=== PATIENT | male | born 1975 | race African-American/Black ===

== ENCOUNTER 2016-05-14 09:14 | Emergency (ER) | payer OTHER ==
[2016-05-14 09:36] VITALS: BP 125/78; PULSE 84; TEMP 98.1; BMI 28.3
--- NOTE | 2016-05-14 09:48 | PDOC ---
History of Present Illness - General History Source: Patient Exam Limitations: No Limitations <Tommy Edmondson - Last Filed: 05/14/16 10:43> - History of Present Illness Initial Comments: 05/14/16 10:23 Patient is a 40 year old male from [facility] with significant medical hx of MR and wheelchair bound who has been brought to the ED for G-Tube displacement. The patient is accompanied by caregiver who provided history. Today the patient pulled his G-Tube out at approximately 7am, he reportedly does this on occasion. The patient was brought to the ED because staff at the [facility] had difficulty placing it back. Caregiver reports no other complaints. <Patricia Anne - Last Filed: 05/14/16 11:17> - General Chief Complaint: G Tube Problem Stated Complaint: TUBE DISPLACEMENT Time Seen by Provider: 05/14/16 09:42 Past History - Psycho/Social/Smoking Cessation Hx Suicidal Ideation: No Smoking History: Never smoked <Tommy Edmondson - Last Filed: 05/14/16 10:43> <Patricia Anne - Last Filed: 05/14/16 11:17> - Past Medical History Allergies/Adverse Reactions: Allergies Allergy/AdvReac Type Severity Reaction Status Date / Time No Allergy Information Allergy Verified 05/14/16 09:31 Available Home Medications: Ambulatory Orders Aspirin [ASA -] 81 mg GT DAILY 05/14/16 Baclofen 1 tab GT QID 05/14/16 Carbamazepine 100 mg PO BID 05/14/16 Ferrous Sulfate [Children's Ferrous Sulfate] 15 mg GT DAILY 05/14/16 Glycopyrrolate 1 mg GT BID 05/14/16 Multivit-Minerals/Ferrous Fum [Multivitamin Liquid] 30 ml GT DAILY 05/14/16 Ranitidine HCl [Zantac] 150 mg GT HS 05/14/16 Sennosides [Senna] 1 tab GT HS 05/14/16 Tizanidine HCl 2 mg GT BID 05/14/16 Valproic Acid [Depakene] 1,000 mg GT HS 05/14/16 Review of Systems - Review of Systems Comments:: 05/14/16 10:23 Patient unable to participate in ROS secondary to MR. <Patricia Anne - Last Filed: 05/14/16 11:17> *Physical Exam - Vital Signs Last Vital Signs Temp Pulse Resp BP Pulse Ox 98.1 F 84 15 125/78 97 05/14/16 09:31 05/14/16 09:31 05/14/16 09:31 05/14/16 09:31 05/14/16 09:31 <Tommy Edmondson - Last Filed: 05/14/16 10:43> - Vital Signs Last Vital Signs Temp Pulse Resp BP Pulse Ox 98.1 F 84 15 125/78 97 05/14/16 09:31 05/14/16 09:31 05/14/16 09:31 05/14/16 09:31 05/14/16 09:31 - Physical Exam Comments: 05/14/16 10:24 GENERAL: The patient is awake, alert, Nontoxic - in no acute distress. ABDOMEN: soft, T tube stoma present, tube dislodged EXTREMITIES: stiff/contracted LE b/l, normal ROM of upper extermities <Patricia Anne - Last Filed: 05/14/16 11:17> Procedures - Consent Consent obtained: Verbal - Additional Procedures Additional Procedures: gastric tube replacement Progress: 05/14/16 10:09 16Fr G tube placed with mild resistance, but with output of gastric contents. Will obtain a KUB with gastrograffin to confirm contents. <Tommy Edmondson - Last Filed: 05/14/16 10:43> ED Treatment Course - RADIOLOGY Radiograph Interpretation: 05/14/16 11:16 Abdomen X-Ray Impression: Contrast injected into G-tube which fills part of stomach and sweep. Reported By: Michel Perez MD <Patricia Anne - Last Filed: 05/14/16 11:17> Medical Decision Making - Medical Decision Making 05/14/16 10:42 G tube replaced, abd xray reveals +contrast in stomach. will d/c with pmd fu return precautions were discussed I discussed the physical exam findings, ancillary test results and final diagnoses with the patient. I answered all of the patient's questions. The patient was satisfied with the care received and felt comfortable with the discharge plan and treatment plan. The patient will call their primary care physician within 24 hours to arrange follow-up and will return to the Emergency Department with any new, persistent or worsening symptoms. A portion of this note was documented by scribe services under my direction. I have reviewed the details of the note, within reason, and agree with the documentation with the following case summary and management plan written by me <Tommy Edmondson - Last Filed: 05/14/16 10:43> *DC/Admit/Observation/Transfer - Discharge Dispostion Admit: No <Tommy Edmondson - Last Filed: 05/14/16 10:43> - Attestations Scribe Attestion: 05/14/16 10:24 Documentation prepared by Patricia Anne, acting as medical records custodian for Tommy Edmondson MD. <Patricia Anne - Last Filed: 05/14/16 11:17> Diagnosis at time of Disposition: Gastrojejunostomy tube dislodgement - Discharge Dispostion Disposition: HOME Condition at time of disposition: Improved - Referrals Referrals: Taz Ji Jr [Primary Care Provider] - - Patient Instructions Printed Discharge Instructions: How to Care for Your PEG Tube Additional Instructions: Return to the emergency department immediately with ANY new, persistent or worsening symptoms. You MUST call and follow up with your doctor tomorrow for further evaluation of your symptoms. Results were discussed with you. Please make sure your doctor reviews the results of your emergency evaluation. If you had any xrays during your visit, it was read preliminarily by myself, a Radiologist will review it and if there are any additional findings we will call you. Print Language: MALTESE
== END 2016-05-14 11:06 | disposition home or self-care (01) ==
LOC: JER 09:14
PROC: 0D20XUZ Change Feeding Device in Upper Intestinal Tract, External Approach (ICD-10-PCS; principal; 2016-05-14)
DX: Z43.1 Encounter for attention to gastrostomy (principal); F79 Unspecified intellectual disabilities; Z99.3 Dependence on wheelchair
CPT/HCPCS: 43760; 74000-TC; 99282-25

== ENCOUNTER → 2016-05-20 | Emergency (ER) | payer OTHER ==
[2016-05-20 20:24] VITALS: BP 110/77; PULSE 88; TEMP 98.4; BMI 26.2
--- NOTE | 2016-05-20 20:40 | PDOC ---
History of Present Illness - History of Present Illness Initial Comments: 05/20/16 20:59 Patient is a 40 year old male with a significant history of MR, chronic hypotension, seizure disorder, and and G-tube in place who presents to the ED with caregiver it has been reported that the patient has been coughing and points to the chest complaining of chest pain, patient is non verbal. As per forms analyst, the cough is dry, denies fever. <Adalgisa Hanson - Last Filed: 05/20/16 20:59> - General History Source: Care Provider <Hany Bravo - Last Filed: 05/20/16 22:14> - General Chief Complaint: Chest Pain Stated Complaint: CHEST PAIN/COUGH Time Seen by Provider: 05/20/16 20:37 Past History <Adalgisa Hanson - Last Filed: 05/20/16 20:59> - Past Medical History Cardiac Disorders: (chronic hypotension) GI Disorders: Yes (gerd) Seizures: Yes (epilepsy) Other medical history: severe mental retadation, congenital displegia - Surgical History GI Surgery: Yes (G tube) - Psycho/Social/Smoking Cessation Hx Suicidal Ideation: No Smoking History: Never smoked Hx Alcohol Use: No Drug/Substance Use Hx: No <Hany Bravo - Last Filed: 05/20/16 22:14> - Past Medical History Allergies/Adverse Reactions: Allergies Allergy/AdvReac Type Severity Reaction Status Date / Time No Allergy Information Allergy Verified 05/20/16 20:24 Available Home Medications: Ambulatory Orders Aspirin [ASA -] 81 mg GT DAILY 05/14/16 Baclofen 1 tab GT QID 05/14/16 Carbamazepine 100 mg PO BID 05/14/16 Ferrous Sulfate [Children's Ferrous Sulfate] 15 mg GT DAILY 05/14/16 Glycopyrrolate 1 mg GT BID 05/14/16 Multivit-Minerals/Ferrous Fum [Multivitamin Liquid] 30 ml GT DAILY 05/14/16 Ranitidine HCl [Zantac] 150 mg GT HS 05/14/16 Sennosides [Senna] 1 tab GT HS 05/14/16 Tizanidine HCl 2 mg GT BID 05/14/16 Valproic Acid [Depakene] 1,000 mg GT HS 05/14/16 Review of Systems - Review of Systems Comments:: 05/20/16 20:46 Unable to obtain ROS due to patient's mental status. <Adalgisa Hanson - Last Filed: 05/20/16 20:59> *Physical Exam - Vital Signs Last Vital Signs Temp Pulse Resp BP Pulse Ox 98.4 F 88 20 110/77 97 05/20/16 20:19 05/20/16 20:19 05/20/16 20:19 05/20/16 20:19 05/20/16 20:19 - Physical Exam Comments: 05/20/16 20:46 GENERAL: +As per forms analyst at usual baseline. +Nonverbal. Awake and alert. HEENT: Normocephalic, atraumatic. PERRLA, EOMI. No conjunctival pallor. Sclerae are non -icteric. Moist mucous membranes. Oropharynx is clear. NECK: Supple. Full ROM. No JVD. Carotid pulses 2+ and symmetric, without bruits. No thyromegaly. No lymphadenopathy. CARDIOVASCULAR: Regular rate and rhythm. No murmurs, rubs, or gallops. Distal pulses are 2+ and symmetric. PULMONARY: No evidence of respiratory distress. Lungs clear to auscultation bilaterally. No wheezing, rales or rhonchi. ABDOMINAL: +G tube in place. Soft. Non-tender. Non-distended. No rebound or guarding. No organomegaly. Normoactive bowel sounds. MUSCULOSKELETAL Normal range of motion at all joints. No bony deformities or tenderness. No CVA tenderness. EXTREMITIES: No cyanosis. No clubbing. No edema. No calf tenderness. SKIN: Warm and dry. Normal capillary refill. No rashes. No jaundice. NEUROLOGICAL: Alert, awake, appropriate. Cranial nerves 2-12 intact. No deficits to light touch and temperature in face, upper extremities and lower extremities. No motor deficits in the in face, upper extremities and lower extremities. Normoreflexic in the upper and lower extremities. Toes are downgoing bilaterally. PSYCHIATRIC: Cooperative. Good eye contact. Appropriate mood and affect. <Adalgisa Hanson - Last Filed: 05/20/16 20:59> - Vital Signs Last Vital Signs Temp Pulse Resp BP Pulse Ox 98.4 F 88 20 110/77 97 05/20/16 20:19 05/20/16 20:19 05/20/16 20:19 05/20/16 20:19 05/20/16 20:19 <Hany Bravo - Last Filed: 05/20/16 22:14> Medical Decision Making - Medical Decision Making 05/20/16 22:13 Dr. Bravo: The scribe's documentation has been prepared under my direction and personally reviewed by me in its entirery. I confirm that the note above accurately reflects all work, treatment, procedures, and medical decision making performed by me. <Hany Bravo - Last Filed: 05/20/16 22:14> *DC/Admit/Observation/Transfer - Attestations Scribe Attestion: 05/20/16 20:47 Documentation prepared by PAOLO Gann, acting as medical physicist for Hany Bravo DO. <Adalgisa Hanson - Last Filed: 05/20/16 20:59> - Discharge Dispostion Admit: No <Hany Bravo - Last Filed: 05/20/16 22:14> Diagnosis at time of Disposition: Cough - Discharge Dispostion Disposition: HOME Condition at time of disposition: Stable - Patient Instructions Printed Discharge Instructions: DI for Cough -- Adult Additional Instructions: continue all pt currents medications. Return if any problems
== END | disposition home or self-care (01) ==
LOC: JER 20:09
DX: R05 Cough (principal); F78 Other intellectual disabilities; G40.909 Epilepsy, unspecified, not intractable, without status epilepticus; I95.89 Other hypotension; Z93.1 Gastrostomy status
CPT/HCPCS: 71010-TC; 99281-25

== ENCOUNTER 2016-07-17 08:09 | Emergency (ER) | payer OTHER ==
[2016-07-17 08:16] VITALS: BMI 25.7
[2016-07-17] MEDS ORDERED: SODIUM CHLORIDE 500 ML IV STA (08:53)
--- NOTE | 2016-07-17 08:56 | PDOC ---
History of Present Illness - General Chief Complaint: Nausea/Vomiting Stated Complaint: REFERRED Time Seen by Provider: 07/17/16 08:25 History Source: Patient Exam Limitations: No Limitations - History of Present Illness Travel History: No Initial Comments: 07/17/16 08:54 Patient came to emergency department this morning from skilled care facility for evaluation of 3 episodes of emesis. Tech who works with patient now is familiar with patient and states he has been more quiet and than his norm, but has not noticed any significant changes in his behavior or appearance. Since her arrival at 7 AM shift has not had any episodes of emesis. Tube and mouth but has not had food this morning however feels that G-tube feedings have regurgitated. States had normal bowel movement yesterday but uncertain as to his bowel status. Patient is incontinent of urine. Fever, denied any recent URI , denies any any injuries recently. 07/17/16 08:56 07/19/16 10:00 Quality: reports: mild, moderate Abdominal Pain Onset Location: reports: other Pain Radiation: reports: no radiation (unceratain) Past History - Travel Traveled outside of the country in the last 30 days: No Close contact w/someone who was outside of country & ill: No - Past Medical History Allergies/Adverse Reactions: Allergies Allergy/AdvReac Type Severity Reaction Status Date / Time No Known Allergies Allergy Verified 07/17/16 08:17 Home Medications: Ambulatory Orders Baclofen 1 tab GT QID 05/14/16 Multivit-Minerals/Ferrous Fum [Multivitamin Liquid] 5 ml GT DAILY 05/14/16 Valproic Acid [Depakene] 1,000 mg GT HS 05/14/16 Calcium 250Mg/Vit-D 125 Units [Oscal 250 mg+D -] 1 combo GT DAILY 07/17/16 Carbamazepine [Tegretol -] 100 mg GT BID 07/17/16 Docusate Liquid [Colace Liquid -] 100 mg GT BID 07/17/16 Glycopyrrolate [Robinul] 1 mg GT BID 07/17/16 Omeprazole Magnesium [Prilosec] 20 mg GT DAILY 07/17/16 Tizanidine HCl [Zanaflex] 2 mg GT BID 07/17/16 Cardiac Disorders: (chronic hypotension) GI Disorders: Yes (gerd) Seizures: Yes (epilepsy) Other medical history: MR, CP, QUADRAPLEGIC - Surgical History GI Surgery: Yes (G tube) - Psycho/Social/Smoking Cessation Hx Suicidal Ideation: No Smoking History: Never smoked Hx Alcohol Use: No Drug/Substance Use Hx: No *Physical Exam - Vital Signs Last Vital Signs Temp Pulse Resp BP Pulse Ox 98.0 F 86 20 119/72 96 07/17/16 08:12 07/17/16 08:12 07/17/16 08:12 07/17/16 08:12 07/17/16 08:12 - Physical Exam General Appearance: Yes: Nourished, Appropriately Dressed. No: Apparent Distress HEENT: positive: AMAN, Normal ENT Inspection Neck: positive: Supple (mobile). negative: Tender, Lymphadenopathy (R) Respiratory/Chest: positive: Lungs Clear, Normal Breath Sounds. negative: Chest Tender Cardiovascular: positive: Regular Rhythm, Regular Rate Gastrointestinal/Abdominal: positive: Normal Bowel Sounds, Tender, Soft, Other ( abdomen flat, nondistended, without any reproduce tenderness with deep palpation to any quadrant however difficult to examine as patient is profoundly MR, G-tube is intact without any evidence of drainage, redness or cellulitis. Patent.). negative: Tenderness Musculoskeletal: positive: Normal Inspection Extremity: positive: Normal Capillary Refill Integumentary: positive: Normal Color, Warm Neurologic: positive: pick up operator II-XII NML intact, Fully Oriented, Alert, Normal Response, Motor Strength 5/5 ED Treatment Course - LABORATORY CBC & Chemistry Diagram: 07/17/16 08:53 07/17/16 10:34 Progress Note - Progress Note Progress Note: vomiting , patient has remained asymptomatic since his arrival to this emergency Department without vomiting, fevers, or abdominal pain. Laboratory works 2 hemolyzed however resulted testing that shows no elevated liver enzymes and CBC is within normal limits. Able to tolerate thick fluids, and will discharge home *DC/Admit/Observation/Transfer Diagnosis at time of Disposition: Vomiting Qualifiers: Vomiting type: unspecified Vomiting Intractability: unspecified Nausea presence : unspecified Qualified Code(s): R11.10 - Vomiting, unspecified - Discharge Dispostion Disposition: HOME Condition at time of disposition: Stable Admit: No - Patient Instructions Printed Discharge Instructions: DI for Vomiting -- Adult Additional Instructions: Return to emergency department for pain, fevers or recurrence of symptoms
[2016-07-17 10:40] LABS: BASOPHIL 0.8 % (0-2.0); EOSINOPHIL 0.2 % (0-4.5); MEAN CELL VOLUME 94.2 fl (80-96); MEAN PLT VOLUME 9.3 fl (7.5-11.1); NEUTROPHILS 70.3 % (42.8-82.8); PLATELET COUNT 224 K/MM3 (134-434); RDW 13.1 % (11.9-15.9); WHITE BLOOD COUNT 5.6 K/mm3 (4.0-10.0)
[2016-07-17 11:48] LABS: URINE APPEARANCE CLEAR; URINE BILIRUBIN NEGATIVE (NEGATIVE); URINE BLOOD NEGATIVE (NEGATIVE); URINE COLOR LTYELLOW; URINE GLUCOSE (UA) NEGATIVE (NEGATIVE); URINE KETONE NEGATIVE (NEGATIVE); URINE LEUK ESTERASE NEGATIVE (NEGATIVE); URINE NITRITE NEGATIVE (NEGATIVE); URINE PROTEIN NEGATIVE (NEGATIVE); URINE UROBILINOGEN NEGATIVE E.U./dl (0.2-1.0)
[2016-07-17 13:30] LABS: ALBUMIN 4.1 g/dl (3.4-5.0); ALK PHOS 68 U/L (45-117); BILIRUBIN,TOTAL 0.4 mg/dL (0.2-1.0); SGOT/AST 41 U/L (15-37); SGPT/ALT 28 U/L (12-78); TOT PROT 8.9 g/dl (6.4-8.2)
[2016-07-17 13:57] LABS: BILIRUBIN,DIRECT < 0.1 mg/dL (0.0-0.2)
[2016-07-17 14:27] VITALS: BP 119/80; PULSE 90; TEMP 98
== END 2016-07-17 14:35 | disposition home or self-care (01) ==
LOC: JER 08:09
PROC: 3E0337Z Introduction of Electrolytic and Water Balance Substance into Peripheral Vein, Percutaneous Approach (ICD-10-PCS; principal; 2016-07-17)
DX: R11.10 Vomiting, unspecified (principal); K21.9 Gastro-esophageal reflux disease without esophagitis; G40.909 Epilepsy, unspecified, not intractable, without status epilepticus; F79 Unspecified intellectual disabilities; G82.50 Quadriplegia, unspecified
CPT/HCPCS: 36415; 74020-TC; 80076; 81003; 85025; 99284-25

== ENCOUNTER 2017-12-21 04:04 | Emergency (ER) | payer OTHER ==
[2017-12-21 04:19] VITALS: BMI 21.7
--- NOTE | 2017-12-21 04:35 | PDOC ---
Attending Attestation - Resident Resident Name: Zulma Adams - ED Attending Attestation I have performed the following: I have examined & evaluated the patient, The case was reviewed & discussed with the resident, I agree w/resident's findings & plan - HPI HPI: 12/21/17 04:55 Pt has vomiting and gastroenteritis; he vomited all of his abdominal PEG feeds. Pt is tachycardic here but afebrile. - Physicial Exam PE: 12/21/17 06:43 Pt has gassy bowel sounds, but he is doft in all 4 quadrants. Pt is laughing and trying to talk to us. He has no flank pain. Rectal temp is not febrile. Pt pulled out his IV, so we placed his saline L bag into his PEG tube and he tolerated it well and his vitals are stable and he will be discharged. All labs and exam normal. 12/21/17 06:44 Agree with resident exam - Medical Decision Making 12/21/17 06:45 Imp: viral gastroenteritis. 12/21/17 06:45 Back home with his Aide.
--- NOTE | 2017-12-21 04:36 | PDOC ---
History of Present Illness - General Chief Complaint: Nausea/Vomiting Stated Complaint: VOMITING Time Seen by Provider: 12/21/17 04:34 - History of Present Illness Initial Comments: 42yo M with PMH of MR, seizure disorder, G-tube, cerebral palsy, quadriplegia, GERD presenting with vomiting x 20 times. Patient is nonverbal at baseline. His aide is at the bedside providing collateral history. She believes that he is vomiting because his tube feeding around midnight was faster than usual, about three times the rate he usually receives. The contents of the vomit look like his feedings. She reports that the patient seems more agitated than usual. Past History - Past Medical History Allergies/Adverse Reactions: Allergies Allergy/AdvReac Type Severity Reaction Status Date / Time No Known Allergies Allergy Verified 12/21/17 05:31 Home Medications: Ambulatory Orders Baclofen 20 tab GT QID 05/14/16 Valproic Acid [Depakene] 1,000 mg GT HS 05/14/16 Calcium 250Mg/Vit-D 125 Units [Oscal 250 mg+D -] 1 combo GT DAILY 07/17/16 Carbamazepine [Tegretol -] 100 mg GT BID 07/17/16 Glycopyrrolate [Robinul] 1 mg GT BID 07/17/16 Omeprazole Magnesium [Prilosec] 40 mg GT DAILY 07/17/16 Tizanidine HCl [Zanaflex] 2 mg GT BID 07/17/16 Ammonium Lactate Lotion [Lac-Hydrin 12% Lotion -] 1 applic TP ASDIR 12/21/17 Aspirin [ASA -] 81 mg GT DAILY 12/21/17 Ferrous Sulfate [Children's Ferrous Sulfate] 15 mg GT BID 12/21/17 Multivit-Minerals/Ferrous Fum [Multivitamin Liquid] 9 mg PO DAILY 12/21/17 Sennosides [Senna] 8.6 mg GT HS 12/21/17 Cardiac Disorders: (chronic hypotension) GI Disorders: Yes (gerd) Seizures: Yes (epilepsy) - Surgical History GI Surgery: Yes (G tube) - Suicide/Smoking/Psychosocial Hx Smoking History: Never smoked Have you smoked in the past 12 months: No Information on smoking cessation initiated: No Hx Alcohol Use: No Drug/Substance Use Hx: No Review of Systems - Review of Systems Able to Perform ROS?: No *Physical Exam - Vital Signs Last Vital Signs Temp Pulse Resp BP Pulse Ox 99.3 F 120 H 18 146/89 95 12/21/17 04:14 12/21/17 04:14 12/21/17 04:14 12/21/17 04:14 12/21/17 04:14 - Physical Exam Comments: General: Awake, alert Eyes: EOMI, sclera anicteric ENT: Moist mucus membranes Neck: Normal ROM, supple Lungs: Lungs clear, Normal breath sounds Cardio: Regular rhythm, S1 and S2 present Abdomen: Soft, nondistended. Gtube site without erythema, discharge, or induration. Extremities: Normal range of motion, Distal pulses present SKIN: Warm, Dry, normal turgor Neurologic: Cranial nerves II through XII grossly intact. Normal speech ED Treatment Course - LABORATORY CBC & Chemistry Diagram: 12/21/17 05:05 12/21/17 05:05 Medical Decision Making - Medical Decision Making 42yo M with PMH of MR, seizure disorder, G-tube, cerebral palsy, quadriplegia, GERD presenting with vomiting x 20 times. -Labs unremarkable, no leukocytosis or anemia. -1L NS 12/21/17 06:06 Patient pulled out his IV 12/21/17 06:07 Spoke with Perla who called from [facility] who requested an update 12/21/17 06:19 Rectal temp 98.9 12/21/17 06:29 Patient finished 1L NS through G tube site. No vomiting observed for one hour. Patient resting. Discharged. 12/21/17 06:55 *DC/Admit/Observation/Transfer Diagnosis at time of Disposition: Vomiting - Discharge Dispostion Disposition: HOME - Referrals Referrals: Taz Ji Jr [Primary Care Provider] - - Patient Instructions Printed Discharge Instructions: DI for Vomiting -- Adult Additional Instructions: This patient came to the ED for vomiting. Labs were unremarkable. Fluids were given to hydrate the patient. Medical attention is required if he has: high fevers, persistent nausea, vomiting, or any new or concerning symptoms. If you think he is having an emergency, call for emergency medical services or present to the emergency department right away. - Post Discharge Activity
[2017-12-21] MEDS ORDERED: SODIUM CHLORIDE 0.9% 500 ML INFUS.BAG IV ONE (04:56)
[2017-12-21 05:17] LABS: BASO % 0.7 % (0-2.0); HEMATOCRIT 43.7 % (35.4-49); HEMOGLOBIN 14.7 GM/dL (11.7-16.9); LYMPH % 28.7 % (8-40); MCH 31.8 pg (25.7-33.7); MCHC 33.7 g/dl (32.0-35.9); MEAN CELL VOLUME 94.5 fl (80-96); MEAN PLT VOLUME 7.7 fl (7.5-11.1); MONO % 5.3 % (3.8-10.2); NEUT % 64.3 % (42.8-82.8); PLATELET COUNT 235 K/MM3 (134-434); RBC 4.62 M/mm3 (4.00-5.60); RDW 12.7 % (11.9-15.9); WHITE BLOOD COUNT 5.2 K/mm3 (4.0-10.0)
[2017-12-21 05:44] LABS: ALBUMIN 3.6 g/dl (3.4-5.0); ALK PHOS 76 U/L (45-117); ANION GAP 6 MMOL/L (8-16); BILIRUBIN,TOTAL 0.2 mg/dL (0.2-1); BLOOD UREA NITROGEN 16 mg/dL (7-18); CALCIUM 8.7 mg/dL (8.5-10.1); CHLORIDE 105 mmol/L (98-107); CO2 28 mmol/L (21-32); CREATININE 0.6 mg/dL (0.55-1.3); GLUCOSE,RANDOM 135 mg/dL (74-106); POTASSIUM 4.3 mmol/L (3.5-5.1); SGOT/AST 23 U/L (15-37); SGPT/ALT 30 U/L (13-61); SODIUM 138 mmol/L (136-145); TOT PROT 7.9 g/dl (6.4-8.2)
[2017-12-21 06:20] VITALS: BP 120/68; PULSE 107; TEMP 98.9
== END 2017-12-21 06:41 | disposition home or self-care (01) ==
LOC: JER 04:04
DX: A08.4 Viral intestinal infection, unspecified (principal); B97.89 Other viral agents as the cause of diseases classified elsewhere; K21.9 Gastro-esophageal reflux disease without esophagitis; G80.8 Other cerebral palsy; F78 Other intellectual disabilities; G40.909 Epilepsy, unspecified, not intractable, without status epilepticus; Z93.1 Gastrostomy status
CPT/HCPCS: 36415; 80053; 85025; 99284-25

== ENCOUNTER 2018-06-28 21:18 | Emergency (ER) | payer OTHER ==
[2018-06-28 21:46] VITALS: BP 136/90; PULSE 100; TEMP 97.1; BMI 26.0
--- NOTE | 2018-06-28 22:17 | PDOC ---
History of Present Illness - General Chief Complaint: G Tube Problem Stated Complaint: G-TUBE PROBLEM Time Seen by Provider: 06/28/18 21:54 History Source: Prison Records Exam Limitations: Clinical Condition - History of Present Illness Initial Comments: 06/28/18 22:18 Patient is 42M with history of MR, seizure disorder, G-tube, cerebral palsy, quadriplegia here today with a clogged g tube. Patient's aide states the tube stopped working at about 6pm today. No vomiting, diarrhea. Patient isn't able to communicate. No fevers. Per aide, patient is at his normal baseline status. G -tube was placed "years" ago per aide. Past History - Past Medical History Allergies/Adverse Reactions: Allergies Allergy/AdvReac Type Severity Reaction Status Date / Time No Known Allergies Allergy Verified 06/28/18 21:44 Home Medications: Ambulatory Orders Baclofen 20 tab GT QID 05/14/16 Valproic Acid [Depakene] 1,000 mg GT HS 05/14/16 Calcium 250Mg/Vit-D 125 Units [Oscal 250 mg+D -] 1 combo GT DAILY 07/17/16 Carbamazepine [Tegretol -] 100 mg GT BID 07/17/16 Glycopyrrolate [Robinul] 1 mg GT BID 07/17/16 Omeprazole Magnesium [Prilosec] 40 mg GT DAILY 07/17/16 Tizanidine HCl [Zanaflex] 2 mg GT BID 07/17/16 Ammonium Lactate Lotion [Lac-Hydrin 12% Lotion -] 1 applic TP ASDIR 12/21/17 Aspirin [ASA -] 81 mg GT DAILY 12/21/17 Ferrous Sulfate [Children's Ferrous Sulfate] 15 mg GT BID 12/21/17 Multivit-Minerals/Ferrous Fum [Multivitamin Liquid] 9 mg PO DAILY 12/21/17 Sennosides [Senna] 8.6 mg GT HS 12/21/17 Cardiac Disorders: (chronic hypotension) COPD: No GI Disorders: Yes (gerd) Psychiatric Problems: Yes (Intermittent Explosive Disorder, MR) Seizures: Yes (epilepsy) Other medical history: MR - Surgical History GI Surgery: Yes (G tube) - Immunization History TDAP Vaccination: Yes (11/2009) - Suicide/Smoking/Psychosocial Hx Smoking History: Never smoked Have you smoked in the past 12 months: No Hx Alcohol Use: No Drug/Substance Use Hx: No Substance Use Type: None Review of Systems - Review of Systems Able to Perform ROS?: No (2/2 clinical condition) *Physical Exam - Vital Signs Last Vital Signs Temp Pulse Resp BP Pulse Ox 97.1 F L 100 H 18 136/90 100 06/28/18 21:45 06/28/18 21:45 06/28/18 21:45 06/28/18 21:45 06/28/18 21:45 - Physical Exam Comments: 06/28/18 22:20 GENERAL: Awake, alert, in no acute distress HEAD: No signs of trauma, EYES: PERRLA, EOMI, sclera anicteric, conjunctiva clear ENT: Auricles normal inspection, hearing grossly normal, nares patent, oropharynx clear without exudates. Moist mucosa LUNGS: No distress, speaks full sentences, clear to auscultation bilaterally HEART: Regular rate and rhythm, normal S1 and S2, no murmurs, rubs or gallops, peripheral pulses normal and equal bilaterally. ABDOMEN: Soft, nontender, g tube in place without surrounding erythema, gastric contents appear to be in tube. EXTREMITIES: Normal inspection, Normal range of motion, no edema. No clubbing or cyanosis. NEUROLOGICAL: Cranial nerves II through XII grossly intact. Multiple contractures SKIN: Warm, Dry, normal turgor, no rashes or lesions noted. ED Treatment Course - RADIOLOGY Radiology Studies Ordered: Category Date Time Status ABDOMEN-KUB FLAT PLATE [RAD] Stat Radiology 06/28/18 22:09 Ordered Medical Decision Making - Medical Decision Making 06/28/18 22:21 Patient is 42M here today with g-tube clogged. Attempted to flush, unable to pass fluid. Tube removed, debris found in distal aspect of tube. Tube replaced, gastric contents aspirated. Will do x-ray with omnipague. 06/28/18 22:58 Dye in stomach on x-ray. Will discharge. *DC/Admit/Observation/Transfer Diagnosis at time of Disposition: Problem with gastrostomy tube - Discharge Dispostion Disposition: HOME Condition at time of disposition: Good Decision to Admit order: No - Referrals - Patient Instructions Additional Instructions: Sabino had a clogged g-tube today in the ED. It was replaced with a new tube. Please return to the ED if Sabino has any fever, difficultly feeding or seems like he is in pain. - Post Discharge Activity
--- NOTE | 2018-06-28 23:05 | PDOC ---
Documentation entered by Aline Youssef SCRIBE, acting as scribe for Maria Elena Rose MD. Maria Elena Rose MD: This documentation has been prepared by the Mikael tyson Daisy, SCRIBE, under my direction and personally reviewed by me in its entirety. I confirm that the documentation accurately reflects all work, treatment, procedures, and medical decision making performed by me. Attending Attestation - Resident Resident Name: Clifton Saavedra - ED Attending Attestation I have performed the following: I have examined & evaluated the patient, The case was reviewed & discussed with the resident, I agree w/resident's findings & plan - HPI HPI: 06/28/18 22:44 The patient is a 42YOM with a PMH of MR, seizures, G-tube, cerebral palsy, and quadriplegia who presents to the ER for clogged G-tube since 6PM today. Aid at bedside denies any other complaints including fevers. Patient is unable to provide further history secondary to clinical condition. Allergies: NKDA - Physicial Exam PE: 06/28/18 23:03 awake alert eyes open. moist mucous membranes. lungs clear bilaterally heart rrr no mrg. abd soft nontender. tube in place ( s/p replacement) no surrounding erythema. no abd tenderness. skin warm and dry. - Medical Decision Making 06/28/18 23:04 42 yo m h/o mr quadriplegia needs peg tube replacement. tube replaced by resident dr saavedra, tolerated well 16 fr. post xray with good placement, contrast in bowel. will dc back to facility.
== END 2018-06-28 23:32 | disposition home or self-care (01) ==
LOC: JER 21:18
PROC: 0D20XUZ Change Feeding Device in Upper Intestinal Tract, External Approach (ICD-10-PCS; principal; 2018-06-28)
DX: K94.23 Gastrostomy malfunction (principal); I95.9 Hypotension, unspecified; G80.8 Other cerebral palsy; F78 Other intellectual disabilities; F63.81 Intermittent explosive disorder; G40.909 Epilepsy, unspecified, not intractable, without status epilepticus
CPT/HCPCS: 43763; 74018-TC-FY; 99282-25

== ENCOUNTER 2019-11-08 18:57 | Emergency (ER) | payer OTHER ==
[2019-11-08 19:05] VITALS: BMI 32.5
--- NOTE | 2019-11-08 20:06 | PDOC ---
History of Present Illness - General Chief Complaint: G Tube Problem Stated Complaint: TUBE REPLACEMENT History Source: Patient Exam Limitations: No Limitations - History of Present Illness Initial Comments: 11/08/19 20:05 Sabino Hope is a 43M with H MR, seizure disorder, G-tube, cerebral palsy, quadriplegia, brought in for dislodged G tube. Patient has had chronic G-tube for years. Today 4PM found to have dislodge G tube, unwitnessed, unclear how this could have happened. No other problems at this time. Has displaced G tube, 16F. Past History - Medical History Allergies/Adverse Reactions: Allergies Allergy/AdvReac Type Severity Reaction Status Date / Time No Known Allergies Allergy Verified 11/08/19 19:05 Home Medications: Ambulatory Orders Baclofen 20 tab GT QID 05/14/16 Valproic Acid [Depakene] 1,000 mg GT HS 05/14/16 Calcium 250Mg/Vit-D 125 Units [Oscal 250 mg+D -] 1 combo GT DAILY 07/17/16 Carbamazepine [Tegretol -] 100 mg GT BID 07/17/16 Glycopyrrolate [Robinul] 1 mg GT BID 07/17/16 Omeprazole Magnesium [Prilosec] 40 mg GT DAILY 07/17/16 Tizanidine HCl [Zanaflex] 2 mg GT BID 07/17/16 Ammonium Lactate Lotion [Lac-Hydrin 12% Lotion -] 1 applic TP ASDIR 12/21/17 Aspirin [ASA -] 81 mg GT DAILY 12/21/17 Ferrous Sulfate [Children's Ferrous Sulfate] 15 mg GT BID 12/21/17 Multivit-Minerals/Ferrous Fum [Multivitamin Liquid] 9 mg PO DAILY 12/21/17 Sennosides [Senna] 8.6 mg GT HS 12/21/17 Cardiac Disorders: (chronic hypotension) COPD: No GI Disorders: Yes (gerd) Psychiatric Problems: Yes (Intermittent Explosive Disorder, MR) Seizures: Yes (epilepsy) - Surgical History GI Surgery: Yes (G tube) - Immunization History TDAP Vaccination: Yes (11/2009) - Psycho-Social/Smoking History Smoking History: Never smoked Have you smoked in the past 12 months: No - Substance Abuse Hx (Audit-C & DAST Scrn) How often the patient has a drink containing alcohol: Never Score: In Men: 4 or > Positive; In Women: 3 or > Positive: 0 Screen Result (Pos requires Nsg. Audit-10AR): Negative In the last yr the pt used illegal drug/Rx for NonMed reason: No Score: Yes response is considered Positive: 0 Screen Result (Positive result requires Nsg. DAST-10): Negative Review of Systems - Review of Systems Able to Perform ROS?: No (MR) *Physical Exam - Vital Signs Last Vital Signs Temp Pulse Resp BP Pulse Ox 97.6 F 80 18 90/64 100 11/08/19 19:01 11/08/19 19:01 11/08/19 19:01 11/08/19 19:01 11/08/19 19:01 - Physical Exam General Appearance: Yes: Nourished, Appropriately Dressed. No: Apparent Distress HEENT: positive: EOMI, AMAN, Normal ENT Inspection, Symmetrical, Pharynx Normal. negative: Scleral Icterus (R), Scleral Icterus (L), Pharyngeal Erythema, Tonsillar Exudate, Tonsillar Erythema, Nasal Congestion, Rhinorrhea, Sinus Tenderness Neck: positive: Trachea midline, Normal Thyroid. negative: Tender, Rigid, Supple, Lymphadenopathy (R), Lymphadenopathy (L) Respiratory/Chest: positive: Lungs Clear, Normal Breath Sounds. negative: Chest Tender, Respiratory Distress, Accessory Muscle Use, Crackles, Rales, Rhonchi, Stridor, Wheezing Cardiovascular: positive: Regular Rhythm, Regular Rate. negative: Murmur Gastrointestinal/Abdominal: positive: Normal Bowel Sounds, Flat, Soft, Other (left periumbilical G tube stoma, well-healed, clear discharge). negative: Tender, Organomegaly, Hernia, Mass Musculoskeletal: positive: Normal Inspection. negative: CVA Tenderness, Decreased Range of Motion, Vertebral Tenderness Extremity: positive: Normal Capillary Refill, Normal Inspection, Normal Range of Motion, Pelvis Stable. 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 Will replace dislodged 16F G tube and confirm with XR. 11/08/19 20:50 PEG replaced without issue, good gastric content return. Confirmatory XR shows good gastric illumination with contrast. Stable for d/c back to [facility] with PEG care instructions. Discharge - Discharge Information Problems reviewed: Yes Clinical Impression/Diagnosis: Gastrojejunostomy tube dislodgement - Follow up/Referral - Patient Discharge Instructions Patient Printed Discharge Instructions: How to Care for Your PEG Tube, DI for Percutaneous Endoscopic Gastrostomy (PEG) Additional Instructions: Today Sabino was seen for a dislodged feeding tube. We have replaced it with a new 16Fr tube and confirmed its placement. At home, please make sure that the balloon is filled with 6mL of saline to prevent removal, flush it after each feeding to prevent clogging, and make sure that Sabino does not remove it himself. If he has any other issues regarding the PEG, please bring him back to the emergency room. Follow-up with his regular doctor as needed. - Post Discharge Activity
--- NOTE | 2019-11-08 20:50 | PDOC ---
Documentation entered by Tran Villagomez SCRIBE, acting as scribe for Doris Lazo MD. Doris aLzo MD: This documentation has been prepared by the aguilaibeHernando Ana, SCRIBE, under my direction and personally reviewed by me in its entirety. I confirm that the documentation accurately reflects all work, treatment, procedures, and medical decision making performed by me. Attending Attestation - Resident Resident Name: AceelkeDb - ED Attending Attestation I have performed the following: I have examined & evaluated the patient, The case was reviewed & discussed with the resident, I agree w/resident's findings & plan, Exceptions are as noted - HPI HPI: 11/08/19 20:16 Patient is a 43 year old male with a significant past medical history of seizure, MR, g-tube, cerebral palsy, and quadriplegia, who [facility] the ED, [facility] for G-tube [facility]. Allergies: NKDA - Physicial Exam PE: 11/08/19 20:43 43 yo male presents for g tube replacement head ncat abdomen soft,g tube in place , no blood or drainage from site, no erythema neuro alert,says "hi" ,quadraplegia,chronic cognitive deficits - Medical Decision Making 11/08/19 20:47 replacement of 16 Armenian g tube plan confirm placement with gastrogaffin /kub 11/08/19 22:47 placement of g tube confirmed d/c back to facility Discharge - Discharge Information Problems reviewed: Yes Clinical Impression/Diagnosis: Gastrojejunostomy tube dislodgement - Follow up/Referral - Patient Discharge Instructions Patient Printed Discharge Instructions: How to Care for Your PEG Tube, DI for Percutaneous Endoscopic Gastrostomy (PEG) Additional Instructions: Today Sabino was seen for a dislodged feeding tube. We have replaced it with a new 16Fr tube and confirmed its placement. At home, please make sure that the balloon is filled with 6mL of saline to prevent removal, flush it after each feeding to prevent clogging, and make sure that Sabino does not remove it himself. If he has any other issues regarding the PEG, please bring him back to the emergency room. Follow-up with his regular doctor as needed. - Post Discharge Activity
--- OUTSIDE RECORDS SUMMARY | 2019-11-08 21:07 | XMS ---
:1975 Author Organization [facility] Care Team Providers Name Role Phone LATRICIA GEE Unavailable Unavailable NILAY MATRINEZ, [id number] Unavailable Unavailable Re-disclosure Warning The records that you are about to access may contain information from federally- assisted alcohol or drug abuse programs. If such information is present, then the following federally mandated warning applies: This information has been disclosed to you from records protected by federal confidentiality rules (42 CFR part 2). The federal rules prohibit you from making any further disclosure of this information unless further disclosure is expressly permitted by the written consent of the person to whom it pertains or as otherwise permitted by 42 CFR part 2. A general authorization for the release of medical or other information is NOT sufficient for this purpose. The Federal rules restrict any use of the information to criminally investigate or prosecute any alcohol or drug abuse patient.The records that you are about to access may contain highly sensitive health information, the redisclosure of which is protected by Article 27-F of the [place] State Public Health law. If you continue you may haveaccess to information: Regarding HIV / AIDS; Provided by facilities licensed or operated by the [facility] Office of Mental Health; or Provided by the [facility] Office for People With Developmental Disabilities. If such information is present, then the following [facility] mandated warning applies: This information has been disclosed to you from confidential records which are protected by state law. State law prohibits you from making any further disclosure of this information without the specific written consent of the person to whom it pertains, or as otherwise permitted by law. Any unauthorized further disclosure in violation of state law may result in a fine or half-way sentence or both. A general authorization for the release of medical or other information is NOT sufficient authorization for further disclosure. Allergies and Adverse Reactions Type Description Substance Reaction Status Data Source(s ) Drug allergy Unable to Assess Unable to Assess [facility] Drug allergy No Known Allergies No Known Allergies NONE [facility] Encounters Encounter Providers Location Date Indications Data Source(s ) Outpatient Attender: [id number] 08/06/2019 F72 [facility], 06:00:00 [facility] Care DINOAdmitter: [facility] [employer] [id number] JUAN DINOReferrer: [id number] JUAN NILAY F72 Outpatient Attender: [id number] 08[facility]05/2019 [facility]00:[facility] DINOAdmitter: [id number] [employer] JUAN, DINOReferrer: [id number] JUAN NILAY F72 Outpatient Attender: GERARD 08/02/2019 10:17:00 Z03.818 [facility] LATRICIA PalenciaAdmitter: AM [facility] LATRICIA GEE Corpordeniso n ETarynReferrer: LATRICIA GEE Z03.818 Outpatient Attender: GERARD 08/02/2019 09:15:00 Z03.818 [facility] LATRICIA PalenciaAdmitter: AM [facility] LATRICIA GEEo n ETarynReferrer: LATRICIA GEE Z03.818 Outpatient 06/23/2018 02:00:00 PM MOD.PADMINIUM S [facility] EDT R13.12 [facility] R13.12 Outpatient 05/01/2018 07:38:00 AM EDT [facility] ([facility]) Medications Medication Brand Start Product Dose Route Administrative Pharmacy [facility] Indications Reaction Description Data Name Date Form Instructions Instructions Source(s) Carbamazepi TEGret 07/07/ NOT complet C ureMD ne 20 MG/ML ol 100 2019 APPLIC ed ([facility] [place] Oral MG/5ML 12:00: ABLE er Suspension Oral 00 AM Institut e [Tegretol] Suspen EDT For Hum an TEGretol delmis Developmen 100 MG/5ML t) Oral Suspension Carbamazepi TEGret NOT complet C ureMD ne 20 MG/ML ol 100 2019 APPLIC ed ([facility] [place] Oral MG/5ML 12:00: ABLE er Suspension Oral 00 AM Institut e [Tegretol] Suspen EDT For Hum an TEGretol delmis Developmen 100 MG/5ML t) Oral Suspension Zolpidem Zolpid complet Cure tartrate 10 em 2019 ed ([facility] MG Oral Tartra 12:00: er Tablet te 10 00 AM [facility] Zolpidem MG EST For Human Tartrate 10 Oral Developm en MG Oral Tablet t) Tablet Zolpidem Zolpid complet Cure tartrate 10 em 2019 ed ([facility] MG Oral Tartra 12:00: er Tablet te 10 00 AM [facility] Zolpidem MG EST For Human Tartrate 10 Oral Developm en MG Oral Tablet t) Tablet tizanidine Zanafl 10/14/ complet Cu reMD 2 MG Oral ex 2 2018 ed ([place] Capsule MG 12:00: er [Zanaflex] Oral 00 AM Institut e Zanaflex 2 Capsul EDT For Hum an MG Oral e Developmen Capsule t) tizanidine Zanafl 10/14/ complet Cu reMD 2 MG Oral ex 2 2018 ed ([facility] Capsule MG 12:00: er [Zanaflex] Oral 00 AM Institut e Zanaflex 2 Capsul EDT For Hum an MG Oral e Developmen Capsule t) tizanidine Zanafl 10/14/ complet Cu reMD 2 MG Oral ex 2 2018 ed ([place] Capsule MG 12:00: er [Zanaflex] Oral 00 AM Institut e Zanaflex 2 Capsul EDT For Hum an MG Oral e Developmen Capsule t) Carbamazepi TEGret complet C ureMD ne 20 MG/ML ol 100 2018 APPLIC ed ([facility] [place] Oral MG/5ML 12:00: ABLE er Suspension Oral 00 AM Institut e [Tegretol] Suspen EDT For Hum an TEGretol delmis Developmen 100 MG/5ML t) Oral Suspension Carbamazepi TEGret 04/22/ NOT complet C ureMD ne 20 MG/ML ol 100 2018 APPLIC ed ([facility] Oral MG/5ML 12:00: ABLE er Suspension Oral 00 AM Institut e [Tegretol] Suspen EDT For Hum an TEGretol delmis Developmen 100 MG/5ML t) Oral Suspension Baclofen 20 Baclof 12/15/ complet C ureMD MG Oral en 2013 ed ([facility] Tablet MG 12:00: er Oral 00 AM [facility] Tablet EST For Human Developmen t) Baclofen 20 Baclof 12/15/ complet C ureMD MG Oral en 2013 ed ([facility] Tablet MG 12:00: er Oral 00 AM [facility] Tablet EST For Human Developmen t) tizanidine Zanafl complet Cu reMD 2 MG Oral ex 2 2013 ed ([place] Capsule MG 12:00: er [Zanaflex] Oral 00 AM Institut e Zanaflex 2 Capsul EST For Hum an MG Oral e Developmen Capsule t) Glycopyrrol Robinu NOT complet C ureMD ate 1 MG l 1 MG 2013 Table APPLIC ed ([facility] hest Oral Tablet Oral 12:00: t(s) ABLE er [Robinul] Tablet 00 AM Institu te Robinul 1 EST For Human MG Oral Developmen Tablet t) Baclofen 20 Baclof complet C ureMD MG Oral en 2013 ed ([place] Tablet MG 12:00: er Oral 00 AM [facility] Tablet EST For Human Developmen t) Baclofen 20 Baclof complet C ureMD MG Oral en 2013 ed ([place] Tablet MG 12:00: er Oral 00 AM [facility] Tablet EST For Human Developmen t) Glycopyrrol Robinu NOT complet C ureMD ate 1 MG l 1 MG 2013 Table APPLIC ed ([facility] hest Oral Tablet Oral 12:00: t(s) ABLE er [Robinul] Tablet 00 AM Institu te Robinul 1 EST For Human MG Oral Developmen Tablet t) tizanidine Zanafl 12/15/ complet Cu reMD 2 MG Oral ex 2 2013 ed ([place] Capsule MG 12:00: er [Zanaflex] Oral 00 AM Institut e Zanaflex 2 Capsul EST For Hum an MG Oral e Developmen Capsule t) Glycopyrrol Robinu NOT complet C ureMD ate 1 MG l 1 MG 2013 Table APPLIC ed ([facility] hest Oral Tablet Oral 12:00: t(s) ABLE er [Robinul] Tablet 00 AM Institu te Robinul 1 EST For Human MG Oral Developmen Tablet t) Glycopyrrol Robinu NOT complet C ureMD ate 1 MG l 1 MG 2013 Table APPLIC ed ([facility] hest Oral Tablet Oral 12:00: t(s) ABLE er [Robinul] Tablet 00 AM Institu te Robinul 1 EST For Human MG Oral Developmen Tablet t) Baclofen 20 Baclof 12/15/ complet C ureMD MG Oral en 20 2013 ed ([place] Tablet MG 12:00: er Oral 00 AM [facility] [place] Tablet EST For Human Developmen t) Glycopyrrol Robinu NOT complet C ureMD ate 1 MG l 1 MG 2013 Table APPLIC ed ([facility] hest Oral Tablet Oral 12:00: t(s) ABLE er [Robinul] Tablet 00 AM Institu te Robinul 1 EST For Human MG Oral Developmen Tablet t) Valproic Valpro ORAL complet Cure MD Acid 50 ic 2013 [place] ed ([place] MG/ML Oral Acid 12:00: liter er Solution 250 00 AM (s) [facility] Valproic MG/5ML EST For Human Acid 250 Oral Developmen MG/5ML Oral Syrup t) Syrup ammonium Lac-Hy TOPICA complet Cu reMD lactate 120 drin 2012 Appli L ed ([facility] MG/ML 12 % 12:00: catio er Topical Exterior Work Helper 00 AM n(s) [facility] Cream al EDT For Human [Lac-Hydrin Cream Develop men ] t) Lac-Hydrin 12 % External Cream ammonium Lac-Hy TOPICA complet Cu reMD lactate 120 drin 2013 Appli L ed ([facility] MG/ML 12 % 12:00: catio er Topical Exterior Work Helper 00 AM n(s) [facility] Cream al EDT For Human [Lac-Hydrin Cream Develop men ] t) Lac-Hydrin 12 % External Cream ammonium Lac-Hy TOPICA complet Cu reMD lactate 120 drin 2012 Appli L ed ([facility] MG/ML 12 % 12:00: catio er Topical Exterior Work Helper 00 AM n(s) [facility] Cream al EDT For Human [Lac-Hydrin Cream Develop men ] t) Lac-Hydrin 12 % External Cream Insurance Providers Payer name Policy type Policy ID Covered Covered libertarian's Policy P delilah / Coverage libertarian ID relationship to Thakur Inf ormation type thakur MEDICAID [id number] SP [id number] MEDICARE [id number] SP [id number] 91 1 MEDICAID [id number] PT [id number] MEDICARE [id number] PT [id number] 1 MEDICAID [id number] MEDICARE PT [id number] O/P 1 Problems, Conditions, and Diagnoses Code Display Name Description Problem Type Effective Data Dates Source(s) [id number] Other Other Diagnosis 02/17/2017 [facility] periodontal periodontal 12:00:00 AM ([place] diseases diseases [facility]) [id number] Chronic Chronic Diagnosis 12/25/2015 [facility] gingivitis, gingivitis, 12:00:00 AM ([place] plaque induced plaque induced EST [facility]) [id number] Periodontal Periodontal Diagnosis 12/25/2015 [facility] disease disease, 12:00:00 AM ([place] (disorder) unspecified [facility]) [id number] Personality Personality Diagnosis 12/20/2013 [facility] disorder disorder 12:00:00 AM ([facility]) [id number] Disorder of Disorder of Diagnosis 12/20/2013 [facility] teeth AND/OR teeth and 12:00:00 AM ([place] supporting supporting [facility] For structures structures, Human (disorder) unspecified Development) [id number] 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 12:00:00 AM [facility] (Intelligence disabilities [facility] For Quotient 20-34) Human (disorder) Development) [id number] Seizure Seizure(s) Diagnosis 01/16/2011 [facility] (finding) (convulsive) NOS 12:00:00 AM ([facility]) [id number] Unspecified Unspecified Diagnosis 10/23/2010 [facility] disorder of disorder of 12:00:00 AM ([facility] [facility] refraction refraction [facility]) [id number] Unspecified Unspecified Diagnosis 08/14/2010 [facility] sensorineural sensorineural 12:00:00 AM (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 juan unspecified UNSPECIFIED 06:00:00 AM [facility] EDT Care [facility] Z03.818 Encounter for ENCNTR FOR OBS Diagnosis 08/02/2019 [facility] observation for FOR SUSP EXPSR 10:17:00 AM [facility] suspected TO OT BIOLG EDT Care exposure to AGENTS RULED OUT Corpora tion other biological agents ruled out R13.12 Dysphagia, R13.12 Diagnosis 06/23/2018 [place] oropharyngeal 02:05:00 PM Hospital phase EDT Results ID Date Data Source [id number] 08/02/2019 12:00:00 AM EDT [facility] [employer] [facility] [facility] [employer] Name Value Range Interpretation Code Description Data Kathy rce(s) Supporting Document(s ) SARS-COV-2 [place] RNA RT-PCR [facility] This lab was ordered by [facility] and reported by [facility]. ID Date Data Source [id number] 06/23/2019 12:38:00 PM EDT [facility] Name Value Range Interpretation Code Description Data Kathy rce(s) Supporting Document(s ) SARS-CoV-2 [facility] , RNA This lab was ordered by JAVED DAVIS M.D. and reported by [facility]. ID Date Data Source [id number] 02/01/2016 06:47:53 AM EST [facility] ([facility] [id number] For Human Developmen t) Name Value Range Interpretation Description Data Sup porting Code Source(s) Document(s ) VALPROIC 34.7 mg/L VALPROIC ACID [facility] ACID ([facility]) ID Date Data Source [id number] 02/01/2016 06:47:53 AM EST [facility] ([facility] [id number] For Human Developmen t) Name Value Range Interpretation Description Data Sup porting Code Source(s) Document(s ) CARBAMAZE 4.3 mg/L CARBAMAZEPINE,T [facility] TR OLIVARESL ([facility]) ID Date Data Source [id number] 02/01/2016 06:47:53 AM EST [facility] ([facility] [id number] For Human Developmen t) Name Value Range Interpretation Description Data Sup porting Code Source(s) Document(s ) BASOPHILS 17 BASOPHILS,ABSOL [facility] ,ABSOLUTE Cells/mcL [place] ([facility]) ID Date Data Source [id number] 02/01/2016 06:47:53 AM EST [facility] ([facility] [id number] For Human Developmen t) Name Value Range Interpretation Description Data Sup porting Code Source(s) Document(s ) EOSINOPHI 33 EOSINOPHILS,ABS [facility] LS,ABSOLU Cells/mcL [place] ([facility]) ID Date Data Source [id number] 02/01/2016 06:47:53 AM EST [facility] ([facility] [id number] For Human Developmen t) Name Value Range Interpretation Description Data Sup porting Code Source(s) Document(s ) MONOCYTES 237 MONOCYTES,ABSOL [facility] ,ABSOLUTE Cells/mcL [place] ([facility]) ID Date Data Source [id number] 02/01/2016 06:47:53 AM EST [facility] ([facility] [id number] For Human Developmen t) Name Value Range Interpretation Description Data Sup porting Code Source(s) Document(s ) LYMPHOCYT 2684 LYMPHOCYTES,ABS [facility] ES,ABSOLU Cells/mcL [place] ([facility]) ID Date Data Source [id number] 02/01/2016 06:47:53 AM EST [facility] ([facility] [id number] For Human Developmen t) Name Value Range Interpretation Description Data Sup porting Code Source(s) Document(s ) NEUTROPHI 2530 NEUTROPHILS,ABS [facility] LS,ABSOLU Cells/mcL [place] ([facility]) ID Date Data Source [id number] 02/01/2016 06:47:53 AM EST [facility] ([facility] [id number] For Human Developmen t) Name Value Range Interpretation Code Description Data Kathy rce(s) Supporting Document(s ) BASOPHILS, 0.3 % BASOPHILS,% [facility] % ([facility]) ID Date Data Source [id number] 02/01/2016 06:47:53 AM EST [facility] ([facility] [id number] For Human Developmen t) Name Value Range Interpretation Code Description Data Kathy rce(s) Supporting Document(s ) EOSINOPHIL 0.6 % EOSINOPHILS,% [facility]ure[facility] S,% ([facility]) ID Date Data Source [id number] 02/01/2016 06:47:53 AM EST [facility] ([facility] [id number] For Human Developmen t) Name Value Range Interpretation Code Description Data Kathy rce(s) Supporting Document(s ) MONOCYTES, 4.3 % MONOCYTES,% [facility] % ([facility]) ID Date Data Source [id number] 02/01/2016 06:47:53 AM EST [facility] ([facility] [id number] For Human Developmen t) Name Value Range Interpretation Code Description Data Supporting Source(s) Document(s ) TOTAL 48.8 % TOTAL [facility] LYMPHOCYTE LYMPHOCYTES,% ([facility]) ID Date Data Source [id number] 02/01/2016 06:47:53 AM EST [facility] ([facility] [id number] For Human Developmen t) Name Value Range Interpretation Code Description Data Supporting Source(s) Document(s ) TOTAL 46.0 % TOTAL [facility] NEUTROPHIL NEUTROPHILS,% ([facility],% [facility]) ID Date Data Source [id number] 02/01/2016 06:47:53 AM EST [facility] ([facility] [id number] For Human Developmen t) Name Value Range Interpretation Code Description Data Kathy rce(s) Supporting Document(s ) MPV 10.5 fL MPV [facility] ([facility]) ID Date Data Source [id number] 02/01/2016 06:47:53 AM EST [facility] ([facility] [id number] For Human Developmen t) Name Value Range Interpretation Description Data Sup porting Code Source(s) Document(s ) PLATELET 245 PLATELET COUNT [facility] COUNT Thous/mcL ([facility]) ID Date Data Source [id number] 02/01/2016 06:47:53 AM EST [facility] ([facility] [id number] For Human Developmen t) Name Value Range Interpretation Code Description Data Kathy rce(s) Supporting Document(s ) RDW 13.0 % RDW [facility] ([facility]) ID Date Data Source [id number] 02/01/2016 06:47:53 AM EST [facility] ([facility] [id number] For Human Developmen t) Name Value Range Interpretation Code Description Data Kathy rce(s) Supporting Document(s ) MCHC 34.3 g/dL MCHC [facility] ([facility]) ID Date Data Source [id number] 02/01/2016 06:47:53 AM EST [facility] ([facility] [id number] For Human Developmen t) Name Value Range Interpretation Code Description Data Kathy rce(s) Supporting Document(s ) MCH 32.1 pg MCH [facility] ([facility]) ID Date Data Source [id number] 02/01/2016 06:47:53 AM EST [facility] ([facility] [id number] For Human Developmen t) Name Value Range Interpretation Code Description Data Kathy rce(s) Supporting Document(s ) MCV 93.5 fL MCV [facility] ([facility]) ID Date Data Source [id number] 02/01/2016 06:47:53 AM EST [facility] ([facility] [id number] For Human Developmen t) Name Value Range Interpretation Description Data Sup porting Code Source(s) Document(s ) Hematocrit 45.0 % HEMATOCRIT [facility] [Pure volume ([facility]] of [place] For Blood by Human Automated Development) count ID Date Data Source [id number] 02/01/2016 06:47:53 AM EST [facility] ([facility] [id number] For Human Developmen t) Name Value Range Interpretation Description Data Sup porting Code Source(s) Document(s ) Hemoglobin 15.4 g/dL HEMOGLOBIN [facility] [Mass/volume] ([place] in [facility] venous blood For Human by [employer] Development) ID Date Data Source [id number] 02/01/2016 06:47:53 AM EST [facility] ([facility] [id number] For Human Developmen t) Name Value Range Interpretation Code Description Data Kathy rce(s) Supporting Document(s ) RBC 4.81 RBC [facility] Mill/mcL ([facility] [employer]) ID Date Data Source [id number] 02/01/2016 06:47:53 AM EST [facility] ([facility] [id number] For Human Developmen t) Name Value Range Interpretation Code Description Data Kathy rce(s) Supporting Document(s ) WBC 5.5 WBC [facility] Thous/mcL ([facility]) ID Date Data Source [id number] 02/01/2016 06:47:53 AM EST [facility] ([facility] [id number] For Human Developmen t) Name Value Range Interpretation Description Data Sup porting Code Source(s) Document(s ) EGFR 152 EGFR [facility] THAI mL/min/1. THAI ([address]) ID Date Data Source [id number] 02/01/2016 06:47:53 AM EST [facility] ([facility] [id number] For Human Developmen t) Name Value Range Interpretation Description Data Sup porting Code Source(s) Document(s ) EGFR NON AFR 131 EGFR NON AFR [facility] THAI mL/min/1. [facility]AI ([address]) ID Date Data Source [id number] 02/01/2016 06:47:53 AM EST [facility] ([facility] [id number] For Human Developmen t) Name Value Range Interpretation Description Data Sup porting Code Source(s) Document(s ) Calcium 10.0 CALCIUM [facility] [Moles/volume] mg/dL ([place] in Urine [facility] collected for For Human unspecified Development) duration ID Date Data Source [id number] 02/01/2016 06:47:53 AM EST [facility] ([facility] [id number] For Human Developmen t) Name Value Range Interpretation Description Data Sup porting Code Source(s) Document(s ) BUN/CREAT 19 (calc) BUN/CREATININE [facility] ININE RATIO ([facility]) ID Date Data Source [id number] 02/01/2016 06:47:53 AM EST [facility] ([facility] [id number] For Human Developmen t) Name Value Range Interpretation Description Data Sup porting Code Source(s) Document(s ) Creatinine 0.53 CREATININE [facility] [Moles/volume] mg/dL ([place] in Vitreous [facility] fluid For Human Development) ID Date Data Source [id number] 02/01/2016 06:47:53 AM EST [facility] ([facility] [id number] For Human Developmen t) Name Value Range Interpretation Description Data Sup porting Code Source(s) Document(s ) Urea 10 mg/dL UREA NITROGEN [facility] nitrogen ([place] [Moles/volum [facility] e] in Blood For Human Development) ID Date Data Source [id number] 02/01/2016 06:47:53 AM EST [facility] ([facility] [id number] For Human Developmen t) Name Value Range Interpretation Description Data Sup porting Code Source(s) Document(s ) Carbon 29 mmol/L CARBON DIOXIDE [facility] dioxide ([place] [[facility]] [facility] in Gas For Human delivery Development) system ID Date Data Source [id number] 02/01/2016 06:47:53 AM EST [facility] ([facility] [id number] For Human Developmen t) Name Value Range Interpretation Description Data Sup porting Code Source(s) Document(s ) Chloride 98 mmol/L CHLORIDE [facility] [Moles/volum ([place] e] in Serum, [facility] For Plasma or Human Blood Development) ID Date Data Source [id number] 02/01/2016 06:47:53 AM EST [facility] ([facility] [id number] For Human Developmen t) Name Value Range Interpretation Description Data Sup porting Code Source(s) Document(s ) Potassium 3.9 POTASSIUM [facility] [Mass/volume] mmol/L ([facility] Blood [facility] For Human Development) ID Date Data Source [id number] 02/01/2016 06:47:53 AM EST [facility] ([facility] [id number] For Human Developmen t) Name Value Range Interpretation Description Data Sup porting Code Source(s) Document(s ) Sodium 137 mmol/L SODIUM Cure[facility] [Moles/volu ([place]] in High View For Serum, Human Plasma or Development) Blood ID Date Data Source [id number] 02/01/2016 06:47:53 AM EST CureMD ([facility] [id number] For Human Developmen t) Name Value Range Interpretation Description Data Sup porting Code Source(s) Document(s ) Glucose 76 mg/dL GLUCOSE CureMD [Moles/volum ([facility]] in Serum, High View For Plasma or Human Blood Development) ID Date Data Source [id number] 02/01/2016 06:47:53 AM EST C[facility] ([facility] [id number] For Human Developmen t) Name Value Range Interpretation Description Data Sup porting Code Source(s) Document(s ) CARBAMAZE 4.3 mg/L CARBAMAZEPINE,T CureMD TR OLIVARESAngie ([facility]) ID Date Data Source [id number] 02/01/2016 06:47:53 AM EST C[facility] ([facility] [id number] For Human Developmen t) Name Value Range Interpretation Description Data Sup porting Code Source(s) Document(s ) EGFR 152 EGFR CureMD THAI mL/min/1. THAI ([address]) ID Date Data Source [id number] 02/01/2016 06:47:53 AM EST C[facility] ([facility] [id number] For Human Developmen t) Name Value Range Interpretation Description Data Sup porting Code Source(s) Document(s ) EGFR NON AFR 131 EGFR NON AFR CureMD THAI mL/min/1. THAI ([place] [address]) ID Date Data Source [id number] 02/01/2016 06:47:53 AM EST C[facility] ([facility] [id number] For Human Developmen t) Name Value Range Interpretation Description Data Sup porting Code Source(s) Document(s ) Calcium 10.0 CALCIUM CureMD [Moles/volume] mg/dL ([place] in Urine High View collected for For Human unspecified Development) duration ID Date Data Source [id number] 02/01/2016 06:47:53 AM EST C[facility] ([facility] [id number] For Human Developmen t) Name Value Range Interpretation Description Data Sup porting Code Source(s) Document(s ) BUN/CREAT 19 (calc) BUN/CREATININE CureMD ININE RATIO ([place] RATIO High View For Human Development) ID Date Data Source [id number] 02/01/2016 06:47:53 AM EST C[facility] ([facility] [id number] For Human Developmen t) Name Value Range Interpretation Description Data Sup porting Code Source(s) Document(s ) Creatinine 0.53 CREATININE [facility]MD [Moles/volume] mg/dL ([place] in Vitreous High View fluid For Human Development) ID Date Data Source [id number] 02/01/2016 06:47:53 AM EST C[facility] ([facility] [id number] For Human Developmen t) Name Value Range Interpretation Description Data Sup porting Code Source(s) Document(s ) Urea 10 mg/dL UREA NITROGEN CureMD nitrogen ([place] [Moles/volum High View e] in Blood For Human Development) ID Date Data Source [id number] 02/01/2016 06:47:53 AM EST C[facility] ([facility] [id number] For Human Developmen t) Name Value Range Interpretation Description Data Sup porting Code Source(s) Document(s ) Carbon 29 mmol/L CARBON DIOXIDE CureMD dioxide ([place] [VFr/PPres] High View in Gas For Human delivery Development) system ID Date Data Source [id number] 02/01/2016 06:47:53 AM EST [facility] ([facility] [id number] For Human Developmen t) Name Value Range Interpretation Description Data Sup porting Code Source(s) Document(s ) Chloride 98 mmol/L CHLORIDE [facility] [Moles/volum ([place]] in Serum, High View For Plasma or Human Blood Development) ID Date Data Source [id number] 02/01/2016 06:47:53 AM EST C[facility] ([facility] [id number] For Human Developmen t) Name Value Range Interpretation Description Data Sup porting Code Source(s) Document(s ) Potassium 3.9 POTASSIUM CureMD [Mass/volume] mmol/L ([facility] Blood High View For Human [facility]) ID Date Data Source [id number] 02/01/2016 06:47:53 AM EST C[facility] ([facility] [id number] For Human Developmen t) Name Value Range Interpretation Description Data Sup porting Code Source(s) Document(s ) Sodium 137 mmol/L SODIUM [facility] [Moles/volu ([facility]] in High View For Serum, Human Plasma or Development) Blood ID Date Data Source [id number] 02/01/2016 06:47:53 AM EST C[facility] ([facility] [id number] For Human Developmen t) Name Value Range Interpretation Description Data Sup porting Code Source(s) Document(s ) Glucose 76 mg/dL GLUCOSE [facility] [Moles/volum ([facility]] in Serum, High View For Plasma or Human Blood Development) ID Date Data Source [id number] 02/01/2016 06:47:53 AM EST [facility] ([facility] [id number] For Human Developmen t) Name Value Range Interpretation Description Data Sup porting Code Source(s) Document(s ) VALPROIC 34.7 mg/L VALPROIC ACID CureMD ACID ([facility]) ID Date Data Source [id number] 02/01/2016 06:47:53 AM EST C[facility] ([facility] [id number] For Human Developmen t) Name Value Range Interpretation Description Data Sup porting Code Source(s) Document(s ) BASOPHILS 17 BASOPHILS,ABSOL CureMD ,ABSOLUTE Cells/mcL [place] ([facility]) ID Date Data Source [id number] 02/01/2016 06:47:53 AM EST C[facility] ([facility] [id number] For Human Developmen t) Name Value Range Interpretation Description Data Sup porting Code Source(s) Document(s ) EOSINOPHI 33 EOSINOPHILS,ABS CureMD LS,ABSOLU Cells/mcL OLUTE ([facility]) ID Date Data Source [id number] 02/01/2016 06:47:53 AM EST C[facility] ([facility] [id number] For Human Developmen t) Name Value Range Interpretation Description Data Sup porting Code Source(s) Document(s ) MONOCYTES 237 MONOCYTES,ABSOL CureMD ,ABSOLUTE Cells/mcL [place] ([facility]) ID Date Data Source [id number] 02/01/2016 06:47:53 AM EST C[facility] ([facility] [id number] For Human Developmen t) Name Value Range Interpretation Description Data Sup porting Code Source(s) Document(s ) LYMPHOCYT 2684 LYMPHOCYTES,ABS CureMD ES,ABSOLU Cells/mcL [place] ([facility]) ID Date Data Source [id number] 02/01/2016 06:47:53 AM EST C[facility] ([facility] [id number] For Human Developmen t) Name Value Range Interpretation Description Data Sup porting Code Source(s) Document(s ) NEUTROPHI 2530 NEUTROPHILS,ABS CureMD LS,ABSOLU Cells/mcL [place] ([facility]) ID Date Data Source [id number] 02/01/2016 06:47:53 AM EST C[facility] ([facility] [id number] For Human Developmen t) Name Value Range Interpretation Code Description Data Kathy rce(s) Supporting Document(s ) BASOPHILS, 0.3 % BASOPHILS,% CureMD % ([facility]) ID Date Data Source [id number] 02/01/2016 06:47:53 AM EST C[facility] ([facility] [id number] For Human Developmen t) Name Value Range Interpretation Code Description Data Kathy rce(s) Supporting Document(s ) EOSINOPHIL 0.6 % EOSINOPHILS,% CureMD S,% ([facility]) ID Date Data Source [id number] 02/01/2016 06:47:53 AM EST [facility] ([facility] [id number] For Human Developmen t) Name Value Range Interpretation Code Description Data Kathy rce(s) Supporting Document(s ) MONOCYTES, 4.3 % MONOCYTES,% CureMD % ([facility]) ID Date Data Source [id number] 02/01/2016 06:47:53 AM EST C[facility] ([facility] [id number] For Human Developmen t) Name Value Range Interpretation Code Description Data Supporting Source(s) Document(s ) TOTAL 48.8 % TOTAL [facility]MD LYMPHOCYTE LYMPHOCYTES,% ([facility],% [facility]) ID Date Data Source [id number] 02/01/2016 06:47:53 AM EST C[facility] ([facility] [id number] For Human Developmen t) Name Value Range Interpretation Code Description Data Supporting Source(s) Document(s ) TOTAL 46.0 % TOTAL [facility]MD NEUTROPHIL NEUTROPHILS,% ([facility]) ID Date Data Source [id number] 02/01/2016 06:47:53 AM EST [facility] ([facility] [id number] For Human Developmen t) Name Value Range Interpretation Code Description Data Kathy rce(s) Supporting Document(s ) MPV 10.5 fL MPV [facility] ([facility]) ID Date Data Source [id number] 02/01/2016 06:47:53 AM EST [facility] ([facility] [id number] For Human Developmen t) Name Value Range Interpretation Description Data Sup porting Code Source(s) Document(s ) PLATELET 245 PLATELET COUNT CureMD COUNT Thous/mcL ([facility]) ID Date Data Source [id number] 02/01/2016 06:47:53 AM EST C[facility] ([facility] [id number] For Human Developmen t) Name Value Range Interpretation Code Description Data Kathy rce(s) Supporting Document(s ) RDW 13.0 % RDW [facility] ([facility]) ID Date Data Source [id number] 02/01/2016 06:47:53 AM EST C[facility] ([facility] [id number] For Human Developmen t) Name Value Range Interpretation Code Description Data Kathy rce(s) Supporting Document(s ) MCHC 34.3 g/dL MCHC C[facility] ([facility]) ID Date Data Source [id number] 02/01/2016 06:47:53 AM EST C[facility] ([facility] [id number] For Human Developmen t) Name Value Range Interpretation Code Description Data Kathy rce(s) Supporting Document(s ) MCH 32.1 pg MCH [facility] ([facility]) ID Date Data Source [id number] 02/01/2016 06:47:53 AM EST C[facility] ([facility] [id number] For Human Developmen t) Name Value Range Interpretation Code Description Data Kathy rce(s) Supporting Document(s ) MCV 93.5 fL MCV [facility] ([facility]) ID Date Data Source [id number] 02/01/2016 06:47:53 AM EST C[facility] ([facility] [id number] For Human Developmen t) Name Value Range Interpretation Description Data Sup porting Code Source(s) Document(s ) Hematocrit 45.0 % HEMATOCRIT Cure[facility] [Pure volume ([facility]] of High View For Blood by Human Automated Development) count ID Date Data Source [id number] 02/01/2016 06:47:53 AM EST C[facility] ([facility] [id number] For Human Developmen t) Name Value Range Interpretation Description Data Sup porting Code Source(s) Document(s ) Hemoglobin 15.4 g/dL HEMOGLOBIN [facility] [Mass/volume] ([facility] venous blood For Human by Oximetry Development) ID Date Data Source [id number] 02/01/2016 06:47:53 AM EST C[facility] ([facility] [id number] For Human Developmen t) Name Value Range Interpretation Code Description Data Kathy rce(s) Supporting Document(s ) RBC 4.81 RBC [facility]ure[facility] Mill/mcL ([facility]) ID Date Data Source [id number] 02/01/2016 06:47:53 AM EST C[facility] ([facility] [id number] For Human Developmen t) Name Value Range Interpretation Code Description Data Kathy rce(s) Supporting Document(s ) WBC 5.5 WBC [facility] Thous/mcL ([facility]) ID Date Data Source [id number] 02/01/2016 06:47:53 AM EST C[facility] ([facility] [id number] For Human Developmen t) Name Value Range Interpretation Description Data Sup porting Code Source(s) Document(s ) VALPROIC 34.7 mg/L VALPROIC ACID [facility] ACID ([facility]) ID Date Data Source [id number] 02/01/2016 06:47:53 AM EST C[facility] ([facility] [id number] For Human Developmen t) Name Value Range Interpretation Description Data Sup porting Code Source(s) Document(s ) CARBAMAZE 4.3 mg/L CARBAMAZEPINE,T CureMD TR OLIVARES OT[place] ([facility]) ID Date Data Source [id number] 02/01/2016 06:47:53 AM EST C[facility] ([facility] [id number] For Human Developmen t) Name Value Range Interpretation Description Data Sup porting Code Source(s) Document(s ) BASOPHILS 17 BASOPHILS,ABSOL Cure[facility] ,ABSOLUTE Cells/mcL [place] ([facility]) ID Date Data Source [id number] 02/01/2016 06:47:53 AM EST C[facility] ([facility] [id number] For Human Developmen t) Name Value Range Interpretation Description Data Sup porting Code Source(s) Document(s ) EOSINOPHI 33 EOSINOPHILS,ABS CureMD LS,ABSOLU Cells/mcL [place] ([facility]) ID Date Data Source [id number] 02/01/2016 06:47:53 AM EST C[facility] ([facility] [id number] For Human Developmen t) Name Value Range Interpretation Description Data Sup porting Code Source(s) Document(s ) MONOCYTES 237 MONOCYTES,ABSOL Cure[facility] ,ABSOLUTE Cells/mcL [place] ([facility]) ID Date Data Source [id number] 02/01/2016 06:47:53 AM EST C[facility] ([facility] [id number] For Human Developmen t) Name Value Range Interpretation Description Data Sup porting Code Source(s) Document(s ) LYMPHOCYT 2684 LYMPHOCYTES,ABS CureMD ES,ABSOLU Cells/mcL [place] ([facility]) ID Date Data Source [id number] 02/01/2016 06:47:53 AM EST C[facility] ([facility] [id number] For Human Developmen t) Name Value Range Interpretation Description Data Sup porting Code Source(s) Document(s ) NEUTROPHI 2530 NEUTROPHILS,ABS CureMD LS,ABSOLU Cells/mcL [place] ([facility]) ID Date Data Source [id number] 02/01/2016 06:47:53 AM EST [facility] ([facility] [id number] For Human Developmen t) Name Value Range Interpretation Code Description Data Kathy rce(s) Supporting Document(s ) BASOPHILS, 0.3 % BASOPHILS,% CureMD % ([facility]) ID Date Data Source [id number] 02/01/2016 06:47:53 AM EST C[facility] ([facility] [id number] For Human Developmen t) Name Value Range Interpretation Code Description Data Kathy rce(s) Supporting Document(s ) EOSINOPHIL 0.6 % EOSINOPHILS,% CureMD S,% ([facility]) ID Date Data Source [id number] 02/01/2016 06:47:53 AM EST C[facility] ([facility] [id number] For Human Developmen t) Name Value Range Interpretation Code Description Data Kathy rce(s) Supporting Document(s ) MONOCYTES, 4.3 % MONOCYTES,% CureMD % ([facility]) ID Date Data Source [id number] 02/01/2016 06:47:53 AM EST C[facility] ([facility] [id number] For Human Developmen t) Name Value Range Interpretation Code Description Data Supporting Source(s) Document(s ) TOTAL 48.8 % TOTAL [facility] LYMPHOCYTE LYMPHOCYTES,% ([facility],% [facility]) ID Date Data Source [id number] 02/01/2016 06:47:53 AM EST C[facility] ([facility] [id number] For Human Developmen t) Name Value Range Interpretation Code Description Data Supporting Source(s) Document(s ) TOTAL 46.0 % TOTAL [facility] NEUTROPHIL NEUTROPHILS,% ([facility],% [facility]) ID Date Data Source [id number] 02/01/2016 06:47:53 AM EST C[facility] ([facility] [id number] For Human Developmen t) Name Value Range Interpretation Code Description Data Kathy rce(s) Supporting Document(s ) MPV 10.5 fL MPV [facility] ([facility]) ID Date Data Source [id number] 02/01/2016 06:47:53 AM EST C[facility] ([facility] [id number] For Human Developmen t) Name Value Range Interpretation Description Data Sup porting Code Source(s) Document(s ) PLATELET 245 PLATELET COUNT C[facility]MD COUNT Thous/mcL ([facility]) ID Date Data Source [id number] 02/01/2016 06:47:53 AM EST C[facility] ([facility] [id number] For Human Developmen t) Name Value Range Interpretation Code Description Data Kathy rce(s) Supporting Document(s ) RDW 13.0 % RDW [facility] ([facility]) ID Date Data Source [id number] 02/01/2016 06:47:53 AM EST C[facility] ([facility] [id number] For Human Developmen t) Name Value Range Interpretation Code Description Data Kathy rce(s) Supporting Document(s ) MCHC 34.3 g/dL MCHC [facility] ([facility]) ID Date Data Source [id number] 02/01/2016 06:47:53 AM EST C[facility] ([facility] [id number] For Human Developmen t) Name Value Range Interpretation Code Description Data Kathy rce(s) Supporting Document(s ) MCH 32.1 pg MCH [facility] ([facility]) ID Date Data Source [id number] 02/01/2016 06:47:53 AM EST C[facility] ([facility] [id number] For Human Developmen t) Name Value Range Interpretation Code Description Data Kathy rce(s) Supporting Document(s ) MCV 93.5 fL MCV [facility] ([facility]) ID Date Data Source [id number] 02/01/2016 06:47:53 AM EST C[facility] ([facility] [id number] For Human Developmen t) Name Value Range Interpretation Description Data Sup porting Code Source(s) Document(s ) Hematocrit 45.0 % HEMATOCRIT [facility] [Pure volume ([facility]] of High View For Blood by Human Automated Development) count ID Date Data Source [id number] 02/01/2016 06:47:53 AM EST C[facility] ([facility] [id number] For Human Developmen t) Name Value Range Interpretation Description Data Sup porting Code Source(s) Document(s ) Hemoglobin 15.4 g/dL HEMOGLOBIN [facility] [Mass/volume] ([facility] venous blood For Human by Oximetry Development) ID Date Data Source [id number] 02/01/2016 06:47:53 AM EST C[facility] ([facility] [id number] For Human Developmen t) Name Value Range Interpretation Code Description Data Kathy rce(s) Supporting Document(s ) RBC 4.81 RBC [facility] Mill/mcL ([facility]) ID Date Data Source [id number] 02/01/2016 06:47:53 AM EST C[facility] ([facility] [id number] For Human Developmen t) Name Value Range Interpretation Code Description Data Kathy rce(s) Supporting Document(s ) WBC 5.5 WBC [facility]MD Thous/mcL ([facility]) ID Date Data Source [id number] 02/01/2016 06:47:53 AM EST C[facility] ([facility] [id number] For Human Developmen t) Name Value Range Interpretation Description Data Sup porting Code Source(s) Document(s ) EGFR 152 EGFR CureMD THAI mL/min/1. THAI ([place] [address]) ID Date Data Source [id number] 02/01/2016 06:47:53 AM EST C[facility] ([facility] [id number] For Human Developmen t) Name Value Range Interpretation Description Data Sup porting Code Source(s) Document(s ) EGFR NON AFR 131 EGFR NON AFR C[facility] THAI mL/min/1. THAI ([place] [address]) ID Date Data Source [id number] 02/01/2016 06:47:53 AM EST C[facility] ([facility] [id number] For Human Developmen t) Name Value Range Interpretation Description Data Sup porting Code Source(s) Document(s ) Calcium 10.0 CALCIUM CureMD [Moles/volume] mg/dL ([place] in Urine High View collected for For Human unspecified Development) duration ID Date Data Source [id number] 02/01/2016 06:47:53 AM EST Cure[facility] ([facility] [id number] For Human Developmen t) Name Value Range Interpretation Description Data Sup porting Code Source(s) Document(s ) BUN/CREAT 19 (calc) BUN/CREATININE CureMD ININE RATIO ([place] RATIO High View For Human Development) ID Date Data Source [id number] 02/01/2016 06:47:53 AM EST C[facility] ([facility] [id number] For Human Developmen t) Name Value Range Interpretation Description Data Sup porting Code Source(s) Document(s ) Creatinine 0.53 CREATININE CureMD [Moles/volume] mg/dL ([facility] Vitreous High View fluid For Human Development) ID Date Data Source [id number] 02/01/2016 06:47:53 AM EST Cure[facility] ([facility] [id number] For Human Developmen t) Name Value Range Interpretation Description Data Sup porting Code Source(s) Document(s ) Urea 10 mg/dL UREA NITROGEN CureMD nitrogen ([place] [Moles/volum High View e] in Blood For Human Development) ID Date Data Source [id number] 02/01/2016 06:47:53 AM EST C[facility] ([facility] [id number] For Human Developmen t) Name Value Range Interpretation Description Data Sup porting Code Source(s) Document(s ) Carbon 29 mmol/L CARBON DIOXIDE CureMD dioxide ([place] [VFr/PPres] High View in Gas For Human delivery Development) system ID Date Data Source [id number] 02/01/2016 06:47:53 AM EST C[facility] ([facility] [id number] For Human Developmen t) Name Value Range Interpretation Description Data Sup porting Code Source(s) Document(s ) Chloride 98 mmol/L CHLORIDE CureMD [Moles/volum ([place] e] in Serum, High View For Plasma or Human Blood Development) ID Date Data Source [id number] 02/01/2016 06:47:53 AM EST Cure[facility] ([facility] [id number] For Human Developmen t) Name Value Range Interpretation Description Data Sup porting Code Source(s) Document(s ) Potassium 3.9 POTASSIUM CureMD [Mass/volume] mmol/L ([facility] Blood High View For Human [place]) ID Date Data Source [id number] 02/01/2016 06:47:53 AM EST Cure[facility] ([facility] [id number] For Human Developmen t) Name Value Range Interpretation Description Data Sup porting Code Source(s) Document(s ) Sodium 137 mmol/L SODIUM [facility]MD [Moles/volu ([facility]] in High View For Serum, Human Plasma or Development) Blood ID Date Data Source [id number] 02/01/2016 06:47:53 AM EST Cure[facility] ([facility] [id number] For Human Developmen t) Name Value Range Interpretation Description Data Sup porting Code Source(s) Document(s ) Glucose 76 mg/dL GLUCOSE CureMD [Moles/volum ([facility]] in Serum, High View For Plasma or Human Blood Development) ID Date Data Source [id number] 01/05/2014 08:30:08 AM EST Cure[facility] ([facility] [id number] For Human Developmen t) Name Value Range Interpretation Description Data Sup porting Code Source(s) Document(s ) VITAMIN D, 54 ng/mL VITAMIN D, [facility]ure[facility] 25-OH, D3 25-OH, D3 ([facility]) ID Date Data Source [id number] 01/05/2014 08:30:08 AM EST Cure[facility] ([facility] [id number] For Human Developmen t) Name Value Range Interpretation Description Data Sup porting Code Source(s) Document(s ) VITAMIN D, 54 ng/mL VITAMIN D, [facility]ureMD 25-OH, 25-OH, TOTAL ([facility]) ID Date Data Source [id number] 01/05/2014 08:30:08 AM EST Cure[facility] ([facility] [id number] For Human Developmen t) Name Value Range Interpretation Description Data Sup porting Code Source(s) Document(s ) VALPROIC 30.7 mg/L VALPROIC CureMD ACID,TOTAL ACID,TOTAL ([facility]) ID Date Data Source [id number] 01/05/2014 08:30:08 AM EST Cure[facility] ([facility] [id number] For Human Developmen t) Name Value Range Interpretation Description Data Sup porting Code Source(s) Document(s ) CARBAMAZE 4.8 mg/L CARBAMAZEPINE,T CureMD TR OLIVARESAngie ([facility]) ID Date Data Source [id number] 01/05/2014 08:30:08 AM EST [facility] ([facility] [facility] [id number] [employer] t) Name Value Range Interpretation Description Data Sup porting Code Source(s) Document(s ) BASOPHILS 22 BASOPHILS,ABSOL CureMD ,ABSOLUTE Cells/mcL [place] ([facility]) ID Date Data Source [id number] 01/05/2014 08:30:08 AM EST CureMD ([facility] [id number] [employer]) Name Value Range Interpretation Description Data Sup porting Code Source(s) Document(s ) EOSINOPHI 17 EOSINOPHILS,ABS CureMD LS,ABSOLU Cells/mcL [place] ([facility]) ID Date Data Source [id number] 01/05/2014 08:30:08 AM EST CureMD ([facility] [id number] [employer]) Name Value Range Interpretation Description Data Sup porting Code Source(s) Document(s ) MONOCYTES 182 MONOCYTES,ABSOL CureMD ,ABSOLUTE Cells/mcL [place] ([facility]) ID Date Data Source [id number] 01/05/2014 08:30:08 AM EST CureMD ([facility] [id number] [employer]) Name Value Range Interpretation Description Data Sup porting Code Source(s) Document(s ) LYMPHOCYT 2382 LYMPHOCYTES,ABS CureMD ES,ABSOLU Cells/mcL [place] ([facility]) ID Date Data Source [id number] 01/05/2014 08:30:08 AM EST CureMD ([facility] [id number] [employer]) Name Value Range Interpretation Description Data Sup porting Code Source(s) Document(s ) NEUTROPHI 2899 NEUTROPHILS,ABS CureMD LS,ABSOLU Cells/mcL [place] ([facility]) ID Date Data Source [id number] 01/05/2014 08:30:08 AM EST CureMD ([facility] [id number] [employer]) Name Value Range Interpretation Code Description Data Kathy rce(s) Supporting Document(s ) BASOPHILS, 0.4 % BASOPHILS,% CureMD % ([facility]) ID Date Data Source [id number] 01/05/2014 08:30:08 AM EST CureMD ([facility] [id number] [employer]) Name Value Range Interpretation Code Description Data Kathy rce(s) Supporting Document(s ) EOSINOPHIL 0.3 % EOSINOPHILS,% CureMD S,% ([facility]) ID Date Data Source [id number] 01/05/2014 08:30:08 AM EST CureMD ([facility] [id number] [employer]) Name Value Range Interpretation Code Description Data Kathy rce(s) Supporting Document(s ) MONOCYTES, 3.3 % MONOCYTES,% CureMD % ([facility]) ID Date Data Source [id number] 01/05/2014 08:30:08 AM EST CureMD ([facility] [id number] [employer]) Name Value Range Interpretation Code Description Data Supporting Source(s) Document(s ) TOTAL 43.3 % TOTAL CureMD LYMPHOCYTE LYMPHOCYTES,% ([facility],% [facility]) ID Date Data Source [id number] 01/05/2014 08:30:08 AM EST CureMD ([facility] [id number] [employer]) Name Value Range Interpretation Code Description Data Supporting Source(s) Document(s ) TOTAL 52.7 % TOTAL CureMD NEUTROPHIL NEUTROPHILS,% ([facility],% [facility]) ID Date Data Source [id number] 01/05/2014 08:30:08 AM EST CureMD ([facility] [id number] [employer]) Name Value Range Interpretation Code Description Data Kathy rce(s) Supporting Document(s ) MPV 8.9 fL MPV CureMD ([facility]) ID Date Data Source [id number] 01/05/2014 08:30:08 AM EST CureMD ([facility] [id number] [employer]) Name Value Range Interpretation Description Data Sup porting Code Source(s) Document(s ) PLATELET 222 PLATELET COUNT CureMD COUNT Thous/mcL ([facility]) ID Date Data Source [id number] 01/05/2014 08:30:08 AM EST CureMD ([facility] [id number] [employer]) Name Value Range Interpretation Code Description Data Kathy rce(s) Supporting Document(s ) RDW 12.5 % RDW CureMD ([facility]) ID Date Data Source [id number] 01/05/2014 08:30:08 AM EST CureMD ([facility] [id number] [employer]) Name Value Range Interpretation Code Description Data Kathy rce(s) Supporting Document(s ) MCHC 33.0 g/dL MCHC CureMD ([facility]) ID Date Data Source [id number] 01/05/2014 08:30:08 AM EST CureMD ([facility] [id number] [employer]) Name Value Range Interpretation Code Description Data Kathy rce(s) Supporting Document(s ) MCH 31.5 pg MCH CureMD ([facility]) ID Date Data Source [id number] 01/05/2014 08:30:08 AM EST CureMD ([facility] [id number] [employer]) Name Value Range Interpretation Code Description Data Kathy rce(s) Supporting Document(s ) MCV 95.6 fL MCV CureMD ([facility]) ID Date Data Source [id number] 01/05/2014 08:30:08 AM EST CureMD ([facility] [id number] [employer]) Name Value Range Interpretation Description Data Sup porting Code Source(s) Document(s ) Hematocrit 43.3 % HEMATOCRIT CureMD [Pure volume ([facility]] of High View For Blood by Human Automated Development) count ID Date Data Source [id number] 01/05/2014 08:30:08 AM EST CureMD ([facility] [id number] [employer]) Name Value Range Interpretation Description Data Sup porting Code Source(s) Document(s ) Hemoglobin 14.3 g/dL HEMOGLOBIN CureMD [Mass/volume] ([facility] venous blood For Human by Oximetry Development) ID Date Data Source [id number] 01/05/2014 08:30:08 AM EST CureMD ([facility] [id number] [employer]) Name Value Range Interpretation Code Description Data Kathy rce(s) Supporting Document(s ) RBC 4.52 RBC CureMD Mill/mcL ([facility]) ID Date Data Source [id number] 01/05/2014 08:30:08 AM EST CureMD ([facility] [id number] [employer]) Name Value Range Interpretation Code Description Data Kathy rce(s) Supporting Document(s ) WBC 5.5 WBC CureMD Thous/mcL ([facility]) ID Date Data Source [id number] 01/05/2014 08:30:08 AM EST CureMD ([facility] [id number] [employer]) Name Value Range Interpretation Description Data Sup porting Code Source(s) Document(s ) EGFR 145 EGFR CureMD THAI mL/min/1. THAI ([address]) ID Date Data Source [id number] 01/05/2014 08:30:08 AM EST CureMD ([facility] [id number] [employer]) Name Value Range Interpretation Description Data Sup porting Code Source(s) Document(s ) EGFR NON AFR 125 EGFR NON AFR CureMD THAI mL/min/1. [facility]AI ([address]) ID Date Data Source [id number] 01/05/2014 08:30:08 AM EST CureMD ([facility] [id number] [employer]) Name Value Range Interpretation Code Description Data Kathy rce(s) Supporting Document(s ) ALT 13 U/L ALT CureMD ([facility]) ID Date Data Source [id number] 01/05/2014 08:30:08 AM EST CureMD ([facility] [id number] [employer]) Name Value Range Interpretation Code Description Data Kathy rce(s) Supporting Document(s ) AST 21 U/L AST CureMD ([facility]) ID Date Data Source [id number] 01/05/2014 08:30:08 AM EST CureMD ([facility] [id number] [employer] t) Name Value Range Interpretation Description Data Sup porting Code Source(s) Document(s ) Alkaline 57 U/L ALKALINE CureMD phosphatase PHOSPHATASE ([place] [Enzymatic High View activity/volume For Human ] in Serum, Development) Plasma or Blood ID Date Data Source [id number] 01/05/2014 08:30:08 AM EST CureMD ([facility] [id number] For [employer] t) Name Value Range Interpretation Description Data Sup porting Code Source(s) Document(s ) BILIRUBIN 0.4 mg/dL BILIRUBIN,TOTAL CureMD ,TOTAL ([facility]) ID Date Data Source [id number] 01/05/2014 08:30:08 AM EST CureMD ([facility] [id number] [employer] t) Name Value Range Interpretation Code Description Data Kathy rce(s) Supporting Document(s ) A/G RATIO 1.2 A/G RATIO Cure[facility] ([facility]) ID Date Data Source [id number] 01/05/2014 08:30:08 AM EST CureMD ([facility] [id number] For [employer]) Name Value Range Interpretation Description Data Sup porting Code Source(s) Document(s ) GLOBULIN, 3.8 g/dL GLOBULIN,CALCUL CureMD CALCULATE ATED ([facility]) ID Date Data Source [id number] 01/05/2014 08:30:08 AM EST CureMD ([facility] [id number] [employer]) Name Value Range Interpretation Description Data Sup porting Code Source(s) Document(s ) Albumin 4.5 g/dL ALBUMIN CureMD [Mass/volume] ([place] in Blood by High View Bromocresol For Human purple (BCP) Development) dye binding method ID Date Data Source [id number] 01/05/2014 08:30:08 AM EST CureMD ([facility] [id number] For Human [employer]men t) Name Value Range Interpretation Description Data Sup porting Code Source(s) Document(s ) PROTEIN, 8.3 g/dL PROTEIN, TOTAL, CureMD TOTAL, SERUM ([facility]) ID Date Data Source [id number] 01/05/2014 08:30:08 AM EST CureMD ([facility] [id number] [employer]) Name Value Range Interpretation Description Data Sup porting Code Source(s) Document(s ) Calcium 10.0 CALCIUM CureMD [Moles/volume] mg/dL ([place] in Urine High View collected for For Human unspecified Development) duration ID Date Data Source [id number] 01/05/2014 08:30:08 AM EST CureMD ([facility] [id number] [employer] t) Name Value Range Interpretation Description Data Sup porting Code Source(s) Document(s ) Creatinine 0.62 CREATININE CureMD [Moles/volume] mg/dL ([facility] Vitreous High View fluid For Human Development) ID Date Data Source [id number] 01/05/2014 08:30:08 AM EST CureMD ([facility] [id number] For Human [employer]men t) Name Value Range Interpretation Description Data Sup porting Code Source(s) Document(s ) Urea 10 mg/dL UREA NITROGEN CureMD nitrogen ([place] [Moles/volum High View e] in Blood For Human Development) ID Date Data Source [id number] 01/05/2014 08:30:08 AM EST CureMD ([facility] [id number] For [employer]men t) Name Value Range Interpretation Description Data Sup porting Code Source(s) Document(s ) Carbon 25 mmol/L CARBON DIOXIDE CureMD dioxide ([place] [facility] High View in Gas For Human delivery Development) system ID Date Data Source [id number] 01/05/2014 08:30:08 AM EST CureMD ([facility] [id number] [employer] Human [employer]men t) Name Value Range Interpretation Description Data Sup porting Code Source(s) Document(s ) Chloride 103 CHLORIDE CureMD [Moles/volum mmol/L ([place] e] in Serum, High View For Plasma or Human Blood Development) ID Date Data Source [id number] 01/05/2014 08:30:08 AM EST CureMD ([facility] [id number] For Human [employer]men t) Name Value Range Interpretation Description Data Sup porting Code Source(s) Document(s ) Potassium 4.4 POTASSIUM CureMD [Mass/volume] mmol/L ([facility] Blood High View For [facility]) ID Date Data Source [id number] 01/05/2014 08:30:08 AM EST CureMD ([facility] [id number] [employer] t) Name Value Range Interpretation Description Data Sup porting Code Source(s) Document(s ) Sodium 139 mmol/L SODIUM CureMD [Moles/volu ([facility]] in High View For Serum, Human Plasma or Development) Blood ID Date Data Source [id number] 01/05/2014 08:30:08 AM EST CureMD ([facility] [id number] For Human Developmen t) Name Value Range Interpretation Description Data Sup porting Code Source(s) Document(s ) Glucose 94 mg/dL GLUCOSE CureMD [Moles/volum ([facility]] in Serum, High View For Plasma or Human Blood Development) ID Date Data Source [id number] 01/05/2014 08:30:08 AM EST CureMD ([facility] [id number] For Human [employer]men t) Name Value Range Interpretation Description Data Sup porting Code Source(s) Document(s ) EGFR NON AFR 125 EGFR NON AFR CureMD THAI mL/min/1. [place]AI ([address]) ID Date Data Source [id number] 01/05/2014 08:30:08 AM EST CureMD ([facility] [id number] For Human [employer]men t) Name Value Range Interpretation Code Description Data Kathy rce(s) Supporting Document(s ) ALT 13 U/L ALT Cure[facility] ([facility]) ID Date Data Source [id number] 01/05/2014 08:30:08 AM EST CureMD ([facility] [id number] For Human [employer]men t) Name Value Range Interpretation Code Description Data Kathy rce(s) Supporting Document(s ) AST 21 U/L AST CureMD ([facility]) ID Date Data Source [id number] 01/05/2014 08:30:08 AM EST CureMD ([facility] [id number] For Human [employer]men t) Name Value Range Interpretation Description Data Sup porting Code Source(s) Document(s ) Alkaline 57 U/L ALKALINE CureMD phosphatase PHOSPHATASE ([place] [Enzymatic High View activity/volume For Human ] in Serum, Development) Plasma or Blood ID Date Data Source [id number] 01/05/2014 08:30:08 AM EST CureMD ([facility] [id number] For Human Developmen t) Name Value Range Interpretation Description Data Sup porting Code Source(s) Document(s ) BILIRUBIN 0.4 mg/dL BILIRUBIN,TOTAL CureMD ,TOTAL ([facility]) ID Date Data Source [id number] 01/05/2014 08:30:08 AM EST CureMD ([facility] [id number] For Human Developmen t) Name Value Range Interpretation Code Description Data Kathy rce(s) Supporting Document(s ) A/G RATIO 1.2 A/G RATIO Cure[facility] ([facility]) ID Date Data Source [id number] 01/05/2014 08:30:08 AM EST CureMD ([facility] [id number] For Human Developmen t) Name Value Range Interpretation Description Data Sup porting Code Source(s) Document(s ) GLOBULIN, 3.8 g/dL GLOBULIN,CALCUL CureMD CALCULATE ATED ([facility]) ID Date Data Source [id number] 01/05/2014 08:30:08 AM EST CureMD ([facility] [id number] For Human Developmen t) Name Value Range Interpretation Description Data Sup porting Code Source(s) Document(s ) Albumin 4.5 g/dL ALBUMIN CureMD [Mass/volume] ([place] in Blood by High View Bromocresol For Human purple (BCP) Development) dye binding method ID Date Data Source [id number] 01/05/2014 08:30:08 AM EST CureMD ([facility] [id number] For Human Developmen t) Name Value Range Interpretation Description Data Sup porting Code Source(s) Document(s ) PROTEIN, 8.3 g/dL PROTEIN, TOTAL, CureMD TOTAL, SERUM ([place] SERUM High View For Human Development) ID Date Data Source [id number] 01/05/2014 08:30:08 AM EST CureMD ([facility] [id number] For Human Developmen t) Name Value Range Interpretation Description Data Sup porting Code Source(s) Document(s ) Calcium 10.0 CALCIUM CureMD [Moles/volume] mg/dL ([place] in Urine High View collected for For Human unspecified Development) duration ID Date Data Source [id number] 01/05/2014 08:30:08 AM EST CureMD ([facility] [id number] For Human Developmen t) Name Value Range Interpretation Description Data Sup porting Code Source(s) Document(s ) Urea 10 mg/dL UREA NITROGEN CureMD nitrogen ([place] [Moles/volum High View e] in Blood For Human Development) ID Date Data Source [id number] 01/05/2014 08:30:08 AM EST CureMD ([facility] [id number] For Human [employer]men t) Name Value Range Interpretation Description Data Sup porting Code Source(s) Document(s ) Carbon 25 mmol/L CARBON DIOXIDE CureMD dioxide ([place] [VFr/[facility]] High View in Gas For Human delivery Development) system ID Date Data Source [id number] 01/05/2014 08:30:08 AM EST CureMD ([facility] [id number] For Human Developmen t) Name Value Range Interpretation Description Data Sup porting Code Source(s) Document(s ) Chloride 103 CHLORIDE CureMD [Moles/volum mmol/L ([place] e] in Serum, High View For Plasma or Human Blood Development) ID Date Data Source [id number] 01/05/2014 08:30:08 AM EST CureMD ([facility] [id number] For Human Developmen t) Name Value Range Interpretation Description Data Sup porting Code Source(s) Document(s ) Potassium 4.4 POTASSIUM CureMD [Mass/volume] mmol/L ([facility] Blood High View For Human [facility]) ID Date Data Source [id number] 01/05/2014 08:30:08 AM EST CureMD ([facility] [id number] For Human Developmen t) Name Value Range Interpretation Description Data Sup porting Code Source(s) Document(s ) Sodium 139 mmol/L SODIUM CureMD [Moles/volu ([facility]] in High View For Serum, Human Plasma or Development) Blood ID Date Data Source [id number] 01/05/2014 08:30:08 AM EST CureMD ([facility] [id number] For Human Developmen t) Name Value Range Interpretation Description Data Sup porting Code Source(s) Document(s ) Glucose 94 mg/dL GLUCOSE CureMD [Moles/volum ([facility]] in Serum, High View For Plasma or Human Blood Development) ID Date Data Source [id number] 01/05/2014 08:30:08 AM EST CureMD ([facility] [id number] For Human Developmen t) Name Value Range Interpretation Code Description Data Kathy rce(s) Supporting Document(s ) WBC 5.5 WBC CureMD Thous/mcL ([facility]) ID Date Data Source [id number] 01/05/2014 08:30:08 AM EST CureMD ([facility] [id number] For Human Developmen t) Name Value Range Interpretation Description Data Sup porting Code Source(s) Document(s ) EGFR 145 EGFR CureMD THAI mL/min/1. THAI ([place] [address]) ID Date Data Source [id number] 01/05/2014 08:30:08 AM EST CureMD ([facility] [id number] For Human Developmen t) Name Value Range Interpretation Description Data Sup porting Code Source(s) Document(s ) Creatinine 0.62 CREATININE CureMD [Moles/volume] mg/dL ([facility] fluid For Human Development) ID Date Data Source [id number] 01/05/2014 08:30:08 AM EST CureMD ([facility] [id number] For Human Developmen t) Name Value Range Interpretation Description Data Sup porting Code Source(s) Document(s ) Hemoglobin 14.3 g/dL HEMOGLOBIN CureMD [Mass/volume] ([facility] venous blood For Human by Oximetry Development) ID Date Data Source [id number] 01/05/2014 08:30:08 AM EST CureMD ([facility] [id number] For Human Developmen t) Name Value Range Interpretation Code Description Data Kathy rce(s) Supporting Document(s ) RBC 4.52 RBC CureMD Mill/mcL ([facility]) ID Date Data Source [id number] 01/05/2014 08:30:08 AM EST CureMD ([facility] [id number] For Human Developmen t) Name Value Range Interpretation Code Description Data Kathy rce(s) Supporting Document(s ) MCV 95.6 fL MCV Cure[facility] ([facility]) ID Date Data Source [id number] 01/05/2014 08:30:08 AM EST CureMD ([facility] [id number] For Human Developmen t) Name Value Range Interpretation Description Data Sup porting Code Source(s) Document(s ) Hematocrit 43.3 % HEMATOCRIT CureMD [Pure volume ([facility]] of High View For Blood by Human Automated Development) count ID Date Data Source [id number] 01/05/2014 08:30:08 AM EST CureMD ([facility] [id number] For Human Developmen t) Name Value Range Interpretation Code Description Data Kathy rce(s) Supporting Document(s ) MCHC 33.0 g/dL MCHC CureMD ([facility]) ID Date Data Source [id number] 01/05/2014 08:30:08 AM EST CureMD ([facility] [id number] For Human Developmen t) Name Value Range Interpretation Code Description Data Kathy rce(s) Supporting Document(s ) MCH 31.5 pg MCH Cure[facility] ([facility]) ID Date Data Source [id number] 01/05/2014 08:30:08 AM EST CureMD ([facility] [id number] For Human Developmen t) Name Value Range Interpretation Description Data Sup porting Code Source(s) Document(s ) PLATELET 222 PLATELET COUNT CureMD COUNT Thous/mcL ([facility]) ID Date Data Source [id number] 01/05/2014 08:30:08 AM EST CureMD ([facility] [id number] For Human Developmen t) Name Value Range Interpretation Code Description Data Kathy rce(s) Supporting Document(s ) RDW 12.5 % RDW Cure[facility] ([facility]) ID Date Data Source [id number] 01/05/2014 08:30:08 AM EST CureMD ([facility] [id number] For Human Developmen t) Name Value Range Interpretation Code Description Data Supporting Source(s) Document(s ) TOTAL 52.7 % TOTAL CureMD NEUTROPHIL NEUTROPHILS,% ([facility]) ID Date Data Source [id number] 01/05/2014 08:30:08 AM EST CureMD ([facility] [id number] For Human Developmen t) Name Value Range Interpretation Code Description Data Kathy rce(s) Supporting Document(s ) MPV 8.9 fL MPV Cure[facility] ([facility]) ID Date Data Source [id number] 01/05/2014 08:30:08 AM EST CureMD ([facility] [id number] For Human Developmen t) Name Value Range Interpretation Code Description Data Kathy rce(s) Supporting Document(s ) MONOCYTES, 3.3 % MONOCYTES,% CureMD % ([facility]) ID Date Data Source [id number] 01/05/2014 08:30:08 AM EST CureMD ([facility] [id number] For Human Developmen t) Name Value Range Interpretation Code Description Data Supporting Source(s) Document(s ) TOTAL 43.3 % TOTAL CureMD LYMPHOCYTE LYMPHOCYTES,% ([facility]) ID Date Data Source [id number] 01/05/2014 08:30:08 AM EST CureMD ([facility] [id number] For Human Developmen t) Name Value Range Interpretation Code Description Data Kathy rce(s) Supporting Document(s ) BASOPHILS, 0.4 % BASOPHILS,% CureMD % ([facility]) ID Date Data Source [id number] 01/05/2014 08:30:08 AM EST CureMD ([facility] [id number] For Human Developmen t) Name Value Range Interpretation Code Description Data Kathy rce(s) Supporting Document(s ) EOSINOPHIL 0.3 % EOSINOPHILS,% CureMD S,% ([facility]) ID Date Data Source [id number] 01/05/2014 08:30:08 AM EST CureMD ([facility] [id number] For Human Developmen t) Name Value Range Interpretation Description Data Sup porting Code Source(s) Document(s ) LYMPHOCYT 2382 LYMPHOCYTES,ABS CureMD ES,ABSOLU Cells/mcL OLUTE ([facility]) ID Date Data Source [id number] 01/05/2014 08:30:08 AM EST [facility] ([facility] [facility] [id number] [facility]) Name Value Range Interpretation Description Data Sup porting Code Source(s) Document(s ) NEUTROPHI 2899 NEUTROPHILS,ABS CureMD LS,ABSOLU Cells/mcL [place] ([facility]) ID Date Data Source [id number] 01/05/2014 08:30:08 AM EST Cure[facility] ([facility] [id number] [facility]) Name Value Range Interpretation Description Data Sup porting Code Source(s) Document(s ) EOSINOPHI 17 EOSINOPHILS,ABS CureMD LS,ABSOLU Cells/mcL [place] ([facility]) ID Date Data Source [id number] 01/05/2014 08:30:08 AM EST Cure[facility] ([facility] [id number] [facility] [employer]) Name Value Range Interpretation Description Data Sup porting Code Source(s) Document(s ) MONOCYTES 182 MONOCYTES,ABSOL CureMD ,ABSOLUTE Cells/mcL [place] ([facility]) ID Date Data Source [id number] 01/05/2014 08:30:08 AM EST Cure[facility] ([facility] [id number] [facility]) Name Value Range Interpretation Description Data Sup porting Code Source(s) Document(s ) VITAMIN D, 54 ng/mL VITAMIN D, CureMD 25-OH, D3 25-OH, D3 ([facility]) ID Date Data Source [id number] 01/05/2014 08:30:08 AM EST Cure[facility] ([facility] [id number] [facility]) Name Value Range Interpretation Description Data Sup porting Code Source(s) Document(s ) VITAMIN D, 54 ng/mL VITAMIN D, CureMD 25-OH, 25-OH, TOTAL ([facility]) ID Date Data Source [id number] 01/05/2014 08:30:08 AM EST Cure[facility] ([facility] [id number] [facility] [employer]) Name Value Range Interpretation Description Data Sup porting Code Source(s) Document(s ) BASOPHILS 22 BASOPHILS,ABSOL CureMD ,ABSOLUTE Cells/mcL [place] ([facility]) ID Date Data Source [id number] 01/05/2014 08:30:08 AM EST Cure[facility] ([facility] [id number] [facility]) Name Value Range Interpretation Description Data Sup porting Code Source(s) Document(s ) VALPROIC 30.7 mg/L VALPROIC CureMD ACID,TOTAL ACID,TOTAL ([facility]) ID Date Data Source [id number] 01/05/2014 08:30:08 AM EST Cure[facility] ([facility] [id number] [facility] [employer]) Name Value Range Interpretation Description Data Sup porting Code Source(s) Document(s ) CARBAMAZE 4.8 mg/L CARBAMAZEPINE,T CureMD TR [place]IV[place]ES OTAL ([facility]) ID Date Data Source [id number] 01/05/2014 08:30:08 AM EST Cure[facility] ([facility] [id number] [facility] t) Name Value Range Interpretation Description Data Sup porting Code Source(s) Document(s ) VITAMIN D, 54 ng/mL VITAMIN D, CureMD 25-OH, D3 25-OH, D3 ([facility]) ID Date Data Source [id number] 01/05/2014 08:30:08 AM EST Cure[facility] ([facility] [id number] [facility]) Name Value Range Interpretation Description Data Sup porting Code Source(s) Document(s ) VITAMIN D, 54 ng/mL VITAMIN D, CureMD 25-OH, 25-OH, TOTAL ([facility]) ID Date Data Source [id number] 01/05/2014 08:30:08 AM EST CureMD ([facility] [id number] [facility]) Name Value Range Interpretation Description Data Sup porting Code Source(s) Document(s ) VALPROIC 30.7 mg/L VALPROIC CureMD ACID,TOTAL ACID,TOTAL ([facility]) ID Date Data Source [id number] 01/05/2014 08:30:08 AM EST Cure[facility] ([facility] [id number] [facility] [employer]) Name Value Range Interpretation Description Data Sup porting Code Source(s) Document(s ) CARBAMAZE 4.8 mg/L CARBAMAZEPINE,T CureMD TR [place] ([facility]) ID Date Data Source [id number] 01/05/2014 08:30:08 AM EST CureMD ([facility] [id number] [facility] [employer]) Name Value Range Interpretation Description Data Sup porting Code Source(s) Document(s ) BASOPHILS 22 BASOPHILS,ABSOL CureMD ,ABSOLUTE Cells/mcL [place] ([facility]) ID Date Data Source [id number] 01/05/2014 08:30:08 AM EST CureMD ([facility] [id number] [facility] [employer]) Name Value Range Interpretation Description Data Sup porting Code Source(s) Document(s ) EOSINOPHI 17 EOSINOPHILS,ABS CureMD LS,ABSOLU Cells/mcL [place] ([facility]) ID Date Data Source [id number] 01/05/2014 08:30:08 AM EST CureMD ([facility] [id number] [facility] [employer]) Name Value Range Interpretation Description Data Sup porting Code Source(s) Document(s ) MONOCYTES 182 MONOCYTES,ABSOL CureMD ,ABSOLUTE Cells/mcL [place] ([facility]) ID Date Data Source [id number] 01/05/2014 08:30:08 AM EST CureMD ([facility] [id number] [facility] [employer]) Name Value Range Interpretation Description Data Sup porting Code Source(s) Document(s ) LYMPHOCYT 2382 LYMPHOCYTES,ABS CureMD ES,ABSOLU Cells/mcL [place] ([facility]) ID Date Data Source [id number] 01/05/2014 08:30:08 AM EST Cure[facility] ([facility] [id number] [facility] [employer]) Name Value Range Interpretation Description Data Sup porting Code Source(s) Document(s ) NEUTROPHI 2899 NEUTROPHILS,ABS CureMD LS,ABSOLU Cells/mcL [place] ([facility]) ID Date Data Source [id number] 01/05/2014 08:30:08 AM EST Cure[facility] ([facility] [id number] [facility] [employer]) Name Value Range Interpretation Code Description Data Kathy rce(s) Supporting Document(s ) BASOPHILS, 0.4 % BASOPHILS,% CureMD % ([facility]) ID Date Data Source [id number] 01/05/2014 08:30:08 AM EST CureMD ([facility] [id number] [facility]) Name Value Range Interpretation Code Description Data Kathy rce(s) Supporting Document(s ) EOSINOPHIL 0.3 % EOSINOPHILS,% CureMD S,% ([facility]) ID Date Data Source [id number] 01/05/2014 08:30:08 AM EST CureMD ([facility] [id number] [facility] [employer]) Name Value Range Interpretation Code Description Data Kathy rce(s) Supporting Document(s ) MONOCYTES, 3.3 % MONOCYTES,% CureMD % ([facility]) ID Date Data Source [id number] 01/05/2014 08:30:08 AM EST Cure[facility] ([facility] [id number] [facility]) Name Value Range Interpretation Code Description Data Supporting Source(s) Document(s ) TOTAL 43.3 % TOTAL CureMD LYMPHOCYTE LYMPHOCYTES,% ([facility]) ID Date Data Source [id number] 01/05/2014 08:30:08 AM EST Cure[facility] ([facility] [id number] [facility] [employer]) Name Value Range Interpretation Code Description Data Supporting Source(s) Document(s ) TOTAL 52.7 % TOTAL CureMD NEUTROPHIL NEUTROPHILS,% ([facility]) ID Date Data Source [id number] 01/05/2014 08:30:08 AM EST CureMD ([facility] [id number] [facility] [employer]) Name Value Range Interpretation Code Description Data Kathy rce(s) Supporting Document(s ) MPV 8.9 fL MPV C[facility] ([facility]) ID Date Data Source [id number] 01/05/2014 08:30:08 AM EST CureMD ([facility] [id number] [facility] [employer]) Name Value Range Interpretation Description Data Sup porting Code Source(s) Document(s ) PLATELET 222 PLATELET COUNT CureMD COUNT Thous/mcL ([facility]) ID Date Data Source [id number] 01/05/2014 08:30:08 AM EST CureMD ([facility] [id number] [facility] [employer]) Name Value Range Interpretation Code Description Data Kathy rce(s) Supporting Document(s ) RDW 12.5 % RDW Cure[facility] ([facility]) ID Date Data Source [id number] 01/05/2014 08:30:08 AM EST CureMD ([facility] [id number] [facility] [employer]) Name Value Range Interpretation Code Description Data Kathy rce(s) Supporting Document(s ) MCHC 33.0 g/dL MCHC Cure[facility] ([facility]) ID Date Data Source [id number] 01/05/2014 08:30:08 AM EST CureMD ([facility] [id number] [facility] [employer]) Name Value Range Interpretation Code Description Data Kathy rce(s) Supporting Document(s ) MCH 31.5 pg MCH CureMD ([facility]) ID Date Data Source [id number] 01/05/2014 08:30:08 AM EST CureMD ([facility] [id number] [facility] [employer]) Name Value Range Interpretation Code Description Data Kathy rce(s) Supporting Document(s ) MCV 95.6 fL MCV Cure[facility] ([facility]) ID Date Data Source [id number] 01/05/2014 08:30:08 AM EST CureMD ([facility] [id number] [facility] [employer]) Name Value Range Interpretation Description Data Sup porting Code Source(s) Document(s ) Hematocrit 43.3 % HEMATOCRIT CureMD [Pure volume ([facility]] of High View For Blood by Human Automated Development) count ID Date Data Source [id number] 01/05/2014 08:30:08 AM EST CureMD ([facility] [id number] For Human [employer] t) Name Value Range Interpretation Description Data Sup porting Code Source(s) Document(s ) Hemoglobin 14.3 g/dL HEMOGLOBIN CureMD [Mass/volume] ([facility] venous blood For Human by [employer]xim[employer] Development) ID Date Data Source [id number] 01/05/2014 08:30:08 AM EST CureMD ([facility] [id number] For [employer] t) Name Value Range Interpretation Code Description Data Kathy rce(s) Supporting Document(s ) RBC 4.52 RBC CureMD Mill/mcL ([facility] [employer] [facility]) ID Date Data Source [id number] 01/05/2014 08:30:08 AM EST CureMD ([facility] [id number] For [employer]men t) Name Value Range Interpretation Code Description Data Kathy rce(s) Supporting Document(s ) WBC 5.5 WBC CureMD Thous/mcL ([facility] [employer]) ID Date Data Source [id number] 01/05/2014 08:30:08 AM EST CureMD ([facility] [id number] [facility] [employer] t) Name Value Range Interpretation Description Data Sup porting Code Source(s) Document(s ) EGFR 145 EGFR CureMD THAI mL/min/1. THAI ([address]) ID Date Data Source [id number] 01/05/2014 08:30:08 AM EST CureMD ([facility] [id number] [facility] [employer] t) Name Value Range Interpretation Description Data Sup porting Code Source(s) Document(s ) EGFR NON AFR 125 EGFR NON AFR CureMD THAI mL/min/1. THAI ([address]) ID Date Data Source [id number] 01/05/2014 08:30:08 AM EST CureMD ([facility] [id number] [facility] [employer] t) Name Value Range Interpretation Code Description Data Kathy rce(s) Supporting Document(s ) ALT 13 U/L ALT Cure[facility] ([facility]) ID Date Data Source [id number] 01/05/2014 08:30:08 AM EST CureMD ([facility] [id number] For Human [employer]men t) Name Value Range Interpretation Code Description Data Kathy rce(s) Supporting Document(s ) AST 21 U/L AST Cure[facility] ([facility]) ID Date Data Source [id number] 01/05/2014 08:30:08 AM EST CureMD ([facility] [id number] For [employer]men t) Name Value Range Interpretation Description Data Sup porting Code Source(s) Document(s ) Alkaline 57 U/L ALKALINE CureMD phosphatase PHOSPHATASE ([place] [Enzymatic High View activity/volume For Human ] in Serum, Development) Plasma or Blood ID Date Data Source [id number] 01/05/2014 08:30:08 AM EST CureMD ([facility] [id number] For Human [employer]men t) Name Value Range Interpretation Description Data Sup porting Code Source(s) Document(s ) BILIRUBIN 0.4 mg/dL BILIRUBIN,TOTAL CureMD ,TOTAL ([facility]) ID Date Data Source [id number] 01/05/2014 08:30:08 AM EST CureMD ([facility] [id number] For Human [employer]men t) Name Value Range Interpretation Code Description Data Kathy rce(s) Supporting Document(s ) A/G RATIO 1.2 A/G RATIO CureMD ([facility]) ID Date Data Source [id number] 01/05/2014 08:30:08 AM EST CureMD ([facility] [id number] For Human Developmen t) Name Value Range Interpretation Description Data Sup porting Code Source(s) Document(s ) GLOBULIN, 3.8 g/dL GLOBULIN,CALCUL CureMD CALCULATE ATED ([facility] [employer]) ID Date Data Source [id number] 01/05/2014 08:30:08 AM EST CureMD ([facility] [id number] For Human Developmen t) Name Value Range Interpretation Description Data Sup porting Code Source(s) Document(s ) Albumin 4.5 g/dL ALBUMIN CureMD [Mass/volume] ([facility] Blood by High View Bromocresol For Human purple (BCP) Development) dye binding method ID Date Data Source [id number] 01/05/2014 08:30:08 AM EST CureMD ([facility] [id number] For Human Developmen t) Name Value Range Interpretation Description Data Sup porting Code Source(s) Document(s ) PROTEIN, 8.3 g/dL PROTEIN, TOTAL, CureMD TOTAL, SERUM ([facility]) ID Date Data Source [id number] 01/05/2014 08:30:08 AM EST CureMD ([facility] [id number] For Human Developmen t) Name Value Range Interpretation Description Data Sup porting Code Source(s) Document(s ) Calcium 10.0 CALCIUM CureMD [Moles/volume] mg/dL ([facility] Urine High View collected for For Human unspecified Development) duration ID Date Data Source [id number] 01/05/2014 08:30:08 AM EST CureMD ([facility] [id number] For Human Developmen t) Name Value Range Interpretation Description Data Sup porting Code Source(s) Document(s ) Creatinine 0.62 CREATININE CureMD [Moles/volume] mg/dL ([place] in Vitreous High View fluid For Human Development) ID Date Data Source [id number] 01/05/2014 08:30:08 AM EST CureMD ([facility] [id number] For Human Developmen t) Name Value Range Interpretation Description Data Sup porting Code Source(s) Document(s ) Urea 10 mg/dL UREA NITROGEN CureMD nitrogen ([place] [[facility]/volum High View e] in Blood For Human Development) ID Date Data Source [id number] 01/05/2014 08:30:08 AM EST CureMD ([facility] [id number] For Human Developmen t) Name Value Range Interpretation Description Data Sup porting Code Source(s) Document(s ) Carbon 25 mmol/L CARBON DIOXIDE CureMD dioxide ([place] [VFr/PPres] High View in Gas For Human delivery Development) system ID Date Data Source [id number] 01/05/2014 08:30:08 AM EST CureMD ([facility] [id number] For Human Developmen t) Name Value Range Interpretation Description Data Sup porting Code Source(s) Document(s ) Chloride 103 CHLORIDE CureMD [Moles/volum mmol/L ([place] e] in Serum, High View For Plasma or Human Blood Development) ID Date Data Source [id number] 01/05/2014 08:30:08 AM EST CureMD ([facility] [id number] For Human Developmen t) Name Value Range Interpretation Description Data Sup porting Code Source(s) Document(s ) Potassium 4.4 POTASSIUM CureMD [Mass/volume] mmol/L ([place] in Blood High View For Human Development) ID Date Data Source [id number] 01/05/2014 08:30:08 AM EST CureMD ([facility] [id number] For Human Developmen t) Name Value Range Interpretation Description Data Sup porting Code Source(s) Document(s ) Sodium 139 mmol/L SODIUM CureMD [Moles/volu ([facility]] in High View For Serum, Human Plasma or Development) Blood ID Date Data Source [id number] 01/05/2014 08:30:08 AM EST CureMD ([facility] [id number] For Human Developmen t) Name Value Range Interpretation Description Data Sup porting Code Source(s) Document(s ) Glucose 94 mg/dL GLUCOSE CureMD [Moles/volum ([place] e] in Serum, High View For Plasma or Human Blood Development) ID Date Data Source [id number] 09/08/2012 07:23:17 AM EDT CureMD ([facility] [id number] For Human Developmen t) Name Value Range Interpretation Description Data Sup porting Code Source(s) Document(s ) VALPROIC 113.2 VALPROIC CureMD ACID,TOTAL mg/L ACID,TOTAL ([facility]) ID Date Data Source [id number] 09/08/2012 07:23:17 AM EDT CureMD ([facility] [id number] For Human Developmen t) Name Value Range Interpretation Description Data Sup porting Code Source(s) Document(s ) VALPROIC 113.2 VALPROIC CureMD ACID,TOTAL mg/L ACID,TOTAL ([facility]) ID Date Data Source [id number] 09/08/2012 07:23:17 AM EDT CureMD ([facility] [id number] For Human Developmen t) Name Value Range Interpretation Description Data Sup porting Code Source(s) Document(s ) VALPROIC 113.2 VALPROIC CureMD ACID,TOTAL mg/L ACID,TOTAL ([facility]) ID Date Data Source [id number] 08/28/2012 05:13:24 AM EDT CureMD ([facility] [id number] For Human Developmen t) Name Value Range Interpretation Description Data Sup porting Code Source(s) Document(s ) VALPROIC 80.6 mg/L VALPROIC CureMD ACID,TOTAL ACID,TOTAL ([facility]) ID Date Data Source [id number] 08/28/2012 05:13:24 AM EDT CureMD ([facility] [id number] For Human Developmen t) Name Value Range Interpretation Description Data Sup porting Code Source(s) Document(s ) VALPROIC 80.6 mg/L VALPROIC CureMD ACID,TOTAL ACID,TOTAL ([facility]) ID Date Data Source [id number] 08/28/2012 05:13:24 AM EDT CureMD ([facility] [id number] For Human Developmen t) Name Value Range Interpretation Description Data Sup porting Code Source(s) Document(s ) VALPROIC 80.6 mg/L VALPROIC CureMD ACID,TOTAL ACID,TOTAL ([facility]) ID Date Data Source [id number] 07/10/2012 05:51:39 AM EDT CureMD ([facility] [id number] For Human Developmen t) Name Value Range Interpretation Description Data Sup porting Code Source(s) Document(s ) VALPROIC 125.0 VALPROIC CureMD ACID,TOTAL mg/L ACID,TOTAL ([facility]) ID Date Data Source [id number] 07/10/2012 05:51:39 AM EDT CureMD ([facility] [id number] For Human Developmen t) Name Value Range Interpretation Description Data Sup porting Code Source(s) Document(s ) VALPROIC 125.0 VALPROIC CureMD ACID,TOTAL mg/L ACID,TOTAL ([facility]) ID Date Data Source [id number] 07/10/2012 05:51:39 AM EDT CureMD ([facility] [id number] For Human Developmen t) Name Value Range Interpretation Description Data Sup porting Code Source(s) Document(s ) VALPROIC 125.0 VALPROIC CureMD ACID,TOTAL mg/L ACID,TOTAL ([facility]) ID Date Data Source [id number] 06/09/2012 06:58:30 AM EDT CureMD ([facility] [id number] For Human Developmen t) Name Value Range Interpretation Description Data Sup porting Code Source(s) Document(s ) VALPROIC 120.6 VALPROIC CureMD ACID,TOTAL mg/L ACID,TOTAL ([facility]) ID Date Data Source [id number] 06/09/2012 06:58:30 AM EDT CureMD ([facility] [id number] For Human Developmen t) Name Value Range Interpretation Description Data Sup porting Code Source(s) Document(s ) BASOPHILS 10 BASOPHILS,ABSOL CureMD ,ABSOLUTE Cells/mcL [place] ([facility]) ID Date Data Source [id number] 06/09/2012 06:58:30 AM EDT Cure[facility] ([facility] [id number] For Human Developmen t) Name Value Range Interpretation Description Data Sup porting Code Source(s) Document(s ) EOSINOPHI 15 EOSINOPHILS,ABS CureMD LS,ABSOLU Cells/mcL [place] ([facility]) ID Date Data Source [id number] 06/09/2012 06:58:30 AM EDT Cure[facility] ([facility] [id number] For Human Developmen t) Name Value Range Interpretation Description Data Sup porting Code Source(s) Document(s ) MONOCYTES 290 MONOCYTES,ABSOL CureMD ,ABSOLUTE Cells/mcL [place] ([facility]) ID Date Data Source [id number] 06/09/2012 06:58:30 AM EDT Cure[facility] ([facility] [id number] For Human Developmen t) Name Value Range Interpretation Description Data Sup porting Code Source(s) Document(s ) LYMPHOCYT 2065 LYMPHOCYTES,ABS CureMD ES,ABSOLU Cells/mcL [place] ([facility]) ID Date Data Source [id number] 06/09/2012 06:58:30 AM EDT Cure[facility] ([facility] [id number] For Human Developmen t) Name Value Range Interpretation Description Data Sup porting Code Source(s) Document(s ) NEUTROPHI 2620 NEUTROPHILS,ABS CureMD LS,ABSOLU Cells/mcL [place] ([facility]) ID Date Data Source [id number] 06/09/2012 06:58:30 AM EDT Cure[facility] ([facility] [id number] For Human Developmen t) Name Value Range Interpretation Code Description Data Kathy rce(s) Supporting Document(s ) BASOPHILS, 0.2 % BASOPHILS,% CureMD % ([facility]) ID Date Data Source [id number] 06/09/2012 06:58:30 AM EDT Cure[facility] ([facility] [id number] For Human Developmen t) Name Value Range Interpretation Code Description Data Kathy rce(s) Supporting Document(s ) EOSINOPHIL 0.3 % EOSINOPHILS,% CureMD S,% ([facility]) ID Date Data Source [id number] 06/09/2012 06:58:30 AM EDT Cure[facility] ([facility] [id number] For Human Developmen t) Name Value Range Interpretation Code Description Data Kathy rce(s) Supporting Document(s ) MONOCYTES, 5.8 % MONOCYTES,% CureMD % ([facility]) ID Date Data Source [id number] 06/09/2012 06:58:30 AM EDT Cure[facility] ([facility] [id number] For Human Developmen t) Name Value Range Interpretation Code Description Data Supporting Source(s) Document(s ) TOTAL 41.3 % TOTAL CureMD LYMPHOCYTE LYMPHOCYTES,% ([place] S,[facility] [employer]) ID Date Data Source [id number] 06/09/2012 06:58:30 AM EDT Cure[facility] ([facility] [id number] For Human Developmen t) Name Value Range Interpretation Code Description Data Supporting Source(s) Document(s ) TOTAL 52.4 % TOTAL CureMD NEUTROPHIL NEUTROPHILS,% ([facility]) ID Date Data Source [id number] 06/09/2012 06:58:30 AM EDT Cure[facility] ([facility] [id number] For Human Developmen t) Name Value Range Interpretation Code Description Data Kathy rce(s) Supporting Document(s ) MPV 9.9 fL MPV [facility] ([facility]) ID Date Data Source [id number] 06/09/2012 06:58:30 AM EDT Cure[facility] ([facility] [id number] For Human Developmen t) Name Value Range Interpretation Description Data Sup porting Code Source(s) Document(s ) PLATELET 143 PLATELET COUNT Cure[facility] COUNT Thous/mcL ([facility]) ID Date Data Source [id number] 06/09/2012 06:58:30 AM EDT Cure[facility] ([facility] [id number] For Human Developmen t) Name Value Range Interpretation Code Description Data Kathy rce(s) Supporting Document(s ) RDW 13.5 % RDW [facility] ([facility]) ID Date Data Source [id number] 06/09/2012 06:58:30 AM EDT [facility] ([facility] [id number] [employer]) Name Value Range Interpretation Code Description Data Kathy rce(s) Supporting Document(s ) MCHC 33.0 g/dL MCHC [facility] ([facility]) ID Date Data Source [id number] 06/09/2012 06:58:30 AM EDT [facility] ([facility] [id number] [employer]) Name Value Range Interpretation Code Description Data Kathy rce(s) Supporting Document(s ) MCH 32.7 pg MCH [facility] ([facility]) ID Date Data Source [id number] 06/09/2012 06:58:30 AM EDT [facility] ([facility] [id number] [employer]) Name Value Range Interpretation Code Description Data Kathy rce(s) Supporting Document(s ) MCV 99.0 fL MCV [facility] ([facility]) ID Date Data Source [id number] 06/09/2012 06:58:30 AM EDT [facility] ([facility] [id number] [employer]) Name Value Range Interpretation Description Data Sup porting Code Source(s) Document(s ) Hematocrit 44.5 % HEMATOCRIT [facility] [Pure volume ([facility]] of [place] For Blood by [employer]) count ID Date Data Source [id number] 06/09/2012 06:58:30 AM EDT [facility] ([facility] [id number] [employer]) Name Value Range Interpretation Description Data Sup porting Code Source(s) Document(s ) Hemoglobin 14.7 g/dL HEMOGLOBIN [facility] [Mass/volume] ([facility] venous blood For Human by [employer]) ID Date Data Source [id number] 06/09/2012 06:58:30 AM EDT [facility] ([facility] [id number] [employer]) Name Value Range Interpretation Code Description Data Kathy rce(s) Supporting Document(s ) RBC 4.49 RBC [facility] Mill/mcL ([facility] [employer]) ID Date Data Source [id number] 06/09/2012 06:58:30 AM EDT [facility] ([facility] [id number] [employer]) Name Value Range Interpretation Code Description Data Kathy rce(s) Supporting Document(s ) WBC 5.0 WBC [facility] Thous/mcL ([facility] [employer]) ID Date Data Source [id number] 06/09/2012 06:58:30 AM EDT [facility] ([facility] [id number] [employer]) Name Value Range Interpretation Code Description Data Kathy rce(s) Supporting Document(s ) ALT 20 U/L ALT [facility] ([facility]) ID Date Data Source [id number] 06/09/2012 06:58:30 AM EDT [facility] ([facility] [id number] [employer]) Name Value Range Interpretation Code Description Data Kathy rce(s) Supporting Document(s ) AST 26 U/L AST [facility] ([facility]) ID Date Data Source [id number] 06/09/2012 06:58:30 AM EDT [facility] ([facility] [id number] [employer]) Name Value Range Interpretation Description Data Sup porting Code Source(s) Document(s ) BASOPHILS 10 BASOPHILS,ABSOL C[facility] ,ABSOLUTE Cells/mcL [place] ([facility]) ID Date Data Source [id number] 06/09/2012 06:58:30 AM EDT [facility] ([facility] [id number] [employer]) Name Value Range Interpretation Description Data Sup porting Code Source(s) Document(s ) EOSINOPHI 15 EOSINOPHILS,ABS [facility] LS,ABSOLU Cells/mcL [place] ([facility]) ID Date Data Source [id number] 06/09/2012 06:58:30 AM EDT [facility] ([facility] [id number] [employer]) Name Value Range Interpretation Description Data Sup porting Code Source(s) Document(s ) MONOCYTES 290 MONOCYTES,ABSOL [facility] ,ABSOLUTE Cells/mcL [place] ([facility]) ID Date Data Source [id number] 06/09/2012 06:58:30 AM EDT [facility] ([facility] [id number] [employer]) Name Value Range Interpretation Description Data Sup porting Code Source(s) Document(s ) LYMPHOCYT 2065 LYMPHOCYTES,ABS [facility] ES,ABSOLU Cells/mcL [place] ([facility]) ID Date Data Source [id number] 06/09/2012 06:58:30 AM EDT [facility] ([facility] [id number] [employer]) Name Value Range Interpretation Description Data Sup porting Code Source(s) Document(s ) NEUTROPHI 2620 NEUTROPHILS,ABS [facility] LS,ABSOLU Cells/mcL [place] ([facility]) ID Date Data Source [id number] 06/09/2012 06:58:30 AM EDT [facility] ([facility] [id number] [employer]) Name Value Range Interpretation Code Description Data Kathy rce(s) Supporting Document(s ) BASOPHILS, 0.2 % BASOPHILS,% [facility] % ([facility]) ID Date Data Source [id number] 06/09/2012 06:58:30 AM EDT [facility] ([facility] [id number] [employer]) Name Value Range Interpretation Code Description Data Kathy rce(s) Supporting Document(s ) EOSINOPHIL 0.3 % EOSINOPHILS,% CureMD S,% ([facility]) ID Date Data Source [id number] 06/09/2012 06:58:30 AM EDT [facility] ([facility] [id number] [employer]) Name Value Range Interpretation Code Description Data Kathy rce(s) Supporting Document(s ) MONOCYTES, 5.8 % MONOCYTES,% [facility]ure[facility] % ([facility]) ID Date Data Source [id number] 06/09/2012 06:58:30 AM EDT [facility] ([facility] [id number] [employer]) Name Value Range Interpretation Code Description Data Supporting Source(s) Document(s ) TOTAL 41.3 % TOTAL [facility] LYMPHOCYTE LYMPHOCYTES,% ([facility]) ID Date Data Source [id number] 06/09/2012 06:58:30 AM EDT [facility] ([facility] [id number] [employer]) Name Value Range Interpretation Code Description Data Supporting Source(s) Document(s ) TOTAL 52.4 % TOTAL [facility] NEUTROPHIL NEUTROPHILS,% ([facility]) ID Date Data Source [id number] 06/09/2012 06:58:30 AM EDT [facility] ([facility] [id number] [employer]) Name Value Range Interpretation Code Description Data Kathy rce(s) Supporting Document(s ) MPV 9.9 fL MPV [facility] ([facility]) ID Date Data Source [id number] 06/09/2012 06:58:30 AM EDT [facility] ([facility] [id number] [employer]) Name Value Range Interpretation Description Data Sup porting Code Source(s) Document(s ) PLATELET 143 PLATELET COUNT [facility] COUNT Thous/mcL ([facility]) ID Date Data Source [id number] 06/09/2012 06:58:30 AM EDT [facility] ([facility] [id number] [employer]) Name Value Range Interpretation Code Description Data Kathy rce(s) Supporting Document(s ) RDW 13.5 % RDW [facility] ([facility]) ID Date Data Source [id number] 06/09/2012 06:58:30 AM EDT [facility] ([facility] [id number] [employer]) Name Value Range Interpretation Code Description Data Kathy rce(s) Supporting Document(s ) MCHC 33.0 g/dL MCHC [facility] ([facility]) ID Date Data Source [id number] 06/09/2012 06:58:30 AM EDT [facility] ([facility] [id number] [employer]) Name Value Range Interpretation Code Description Data Kathy rce(s) Supporting Document(s ) MCH 32.7 pg MCH [facility] ([facility]) ID Date Data Source [id number] 06/09/2012 06:58:30 AM EDT [facility] ([facility] [id number] [employer]) Name Value Range Interpretation Code Description Data Kathy rce(s) Supporting Document(s ) MCV 99.0 fL MCV [facility] ([facility]) ID Date Data Source [id number] 06/09/2012 06:58:30 AM EDT [facility] ([facility] [id number] [employer]) Name Value Range Interpretation Description Data Sup porting Code Source(s) Document(s ) Hematocrit 44.5 % HEMATOCRIT [facility] [Pure volume ([facility]] of [place] For Blood by [employer]) count ID Date Data Source [id number] 06/09/2012 06:58:30 AM EDT [facility] ([facility] [id number] [employer]) Name Value Range Interpretation Description Data Sup porting Code Source(s) Document(s ) Hemoglobin 14.7 g/dL HEMOGLOBIN [facility] [Mass/volume] ([facility] High [facility] venous blood For Human by [employer]) ID Date Data Source [id number] 06/09/2012 06:58:30 AM EDT [facility] ([facility] [id number] [employer]) Name Value Range Interpretation Code Description Data Kathy rce(s) Supporting Document(s ) RBC 4.49 RBC [facility] Mill/mcL ([facility] [employer]) ID Date Data Source [id number] 06/09/2012 06:58:30 AM EDT [facility] ([facility] [id number] [employer]) Name Value Range Interpretation Code Description Data Kathy rce(s) Supporting Document(s ) WBC 5.0 WBC [facility] Thous/mcL ([facility] [employer]) ID Date Data Source [id number] 06/09/2012 06:58:30 AM EDT [facility] ([facility] [id number] [employer]) Name Value Range Interpretation Code Description Data Kathy rce(s) Supporting Document(s ) ALT 20 U/L ALT [facility] ([facility]) ID Date Data Source [id number] 06/09/2012 06:58:30 AM EDT [facility] ([facility] [id number] [employer]) Name Value Range Interpretation Code Description Data Kathy rce(s) Supporting Document(s ) AST 26 U/L AST [facility] ([facility]) ID Date Data Source [id number] 06/09/2012 06:58:30 AM EDT [facility] ([facility] [id number] [employer]) Name Value Range Interpretation Description Data Sup porting Code Source(s) Document(s ) VALPROIC 120.6 VALPROIC [facility] ACID,TOTAL mg/L ACID,TOTAL ([facility]) ID Date Data Source [id number] 06/09/2012 06:58:30 AM EDT [facility] ([facility] [id number] [employer]) Name Value Range Interpretation Description Data Sup porting Code Source(s) Document(s ) VALPROIC 120.6 VALPROIC [facility] ACID,TOTAL mg/L ACID,TOTAL ([facility]) ID Date Data Source [id number] 06/09/2012 06:58:30 AM EDT [facility] ([facility] [id number] [employer]) Name Value Range Interpretation Description Data Sup porting Code Source(s) Document(s ) BASOPHILS 10 BASOPHILS,ABSOL [facility] ,ABSOLUTE Cells/mcL [place] ([facility]) ID Date Data Source [id number] 06/09/2012 06:58:30 AM EDT [facility] ([facility] [id number] [employer]) Name Value Range Interpretation Description Data Sup porting Code Source(s) Document(s ) EOSINOPHI 15 EOSINOPHILS,ABS [facility] LS,ABSOLU Cells/mcL [place] ([facility]) ID Date Data Source [id number] 06/09/2012 06:58:30 AM EDT [facility] ([facility] [id number] [employer]) Name Value Range Interpretation Description Data Sup porting Code Source(s) Document(s ) MONOCYTES 290 MONOCYTES,ABSOL [facility] ,ABSOLUTE Cells/mcL [place] ([facility]) ID Date Data Source [id number] 06/09/2012 06:58:30 AM EDT [facility] ([facility] [id number] [employer]) Name Value Range Interpretation Description Data Sup porting Code Source(s) Document(s ) LYMPHOCYT 2065 LYMPHOCYTES,ABS [facility] ES,ABSOLU Cells/mcL [place] ([facility]) ID Date Data Source [id number] 06/09/2012 06:58:30 AM EDT [facility] ([facility] [id number] [employer]) Name Value Range Interpretation Description Data Sup porting Code Source(s) Document(s ) NEUTROPHI 2620 NEUTROPHILS,ABS [facility] LS,ABSOLU Cells/mcL [place] ([facility]) ID Date Data Source [id number] 06/09/2012 06:58:30 AM EDT [facility] ([facility] [id number] [employer]) Name Value Range Interpretation Code Description Data Kathy rce(s) Supporting Document(s ) BASOPHILS, 0.2 % BASOPHILS,% [facility] % ([facility]) ID Date Data Source [id number] 06/09/2012 06:58:30 AM EDT [facility] ([facility] [id number] [employer]) Name Value Range Interpretation Code Description Data Kathy rce(s) Supporting Document(s ) EOSINOPHIL 0.3 % EOSINOPHILS,% CureMD S,% ([facility]) ID Date Data Source [id number] 06/09/2012 06:58:30 AM EDT [facility] ([facility] [id number] [employer]) Name Value Range Interpretation Code Description Data Kathy rce(s) Supporting Document(s ) MONOCYTES, 5.8 % MONOCYTES,% [facility] % ([facility]) ID Date Data Source [id number] 06/09/2012 06:58:30 AM EDT [facility] ([facility] [id number] [employer]) Name Value Range Interpretation Code Description Data Supporting Source(s) Document(s ) TOTAL 41.3 % TOTAL [facility] LYMPHOCYTE LYMPHOCYTES,% ([facility],% [facility]) ID Date Data Source [id number] 06/09/2012 06:58:30 AM EDT [facility] ([facility] [id number] [employer]) Name Value Range Interpretation Code Description Data Supporting Source(s) Document(s ) TOTAL 52.4 % TOTAL [facility] NEUTROPHIL NEUTROPHILS,% ([facility],% [facility]) ID Date Data Source [id number] 06/09/2012 06:58:30 AM EDT [facility] ([facility] [id number] [employer]) Name Value Range Interpretation Code Description Data Kathy rce(s) Supporting Document(s ) MPV 9.9 fL MPV [facility] ([facility]) ID Date Data Source [id number] 06/09/2012 06:58:30 AM EDT [facility] ([facility] [id number] [employer]) Name Value Range Interpretation Description Data Sup porting Code Source(s) Document(s ) PLATELET 143 PLATELET COUNT [facility] COUNT Thous/mcL ([facility]) ID Date Data Source [id number] 06/09/2012 06:58:30 AM EDT [facility] ([facility] [id number] [employer]) Name Value Range Interpretation Code Description Data Kathy rce(s) Supporting Document(s ) RDW 13.5 % RDW [facility] ([facility]) ID Date Data Source [id number] 06/09/2012 06:58:30 AM EDT [facility] ([facility] [id number] [employer]) Name Value Range Interpretation Code Description Data Kathy rce(s) Supporting Document(s ) MCHC 33.0 g/dL MCHC [facility] ([facility]) ID Date Data Source [id number] 06/09/2012 06:58:30 AM EDT [facility] ([facility] [id number] [employer]) Name Value Range Interpretation Code Description Data Kathy rce(s) Supporting Document(s ) MCH 32.7 pg MCH [facility] ([facility]) ID Date Data Source [id number] 06/09/2012 06:58:30 AM EDT [facility] ([facility] [id number] [employer]) Name Value Range Interpretation Code Description Data Kathy rce(s) Supporting Document(s ) MCV 99.0 fL MCV [facility] ([facility]) ID Date Data Source [id number] 06/09/2012 06:58:30 AM EDT [facility] ([facility] [id number] [employer]) Name Value Range Interpretation Description Data Sup porting Code Source(s) Document(s ) Hematocrit 44.5 % HEMATOCRIT [facility] [Pure volume ([facility]] of [place] For Blood by [employer]) count ID Date Data Source [id number] 06/09/2012 06:58:30 AM EDT [facility] ([facility] [id number] [employer]) Name Value Range Interpretation Description Data Sup porting Code Source(s) Document(s ) Hemoglobin 14.7 g/dL HEMOGLOBIN [facility] [Mass/volume] ([facility] venous blood For Human by [employer]) ID Date Data Source [id number] 06/09/2012 06:58:30 AM EDT [facility] ([facility] [id number] [employer]) Name Value Range Interpretation Code Description Data Kathy rce(s) Supporting Document(s ) RBC 4.49 RBC [facility] Mill/mcL ([facility]) ID Date Data Source [id number] 06/09/2012 06:58:30 AM EDT [facility] ([facility] [id number] [employer]) Name Value Range Interpretation Code Description Data Kathy rce(s) Supporting Document(s ) WBC 5.0 WBC [facility] Thous/mcL ([facility]) ID Date Data Source [id number] 06/09/2012 06:58:30 AM EDT [facility] ([facility] [id number] [employer]) Name Value Range Interpretation Code Description Data Kathy rce(s) Supporting Document(s ) ALT 20 U/L ALT [facility] ([facility]) ID Date Data Source [id number] 06/09/2012 06:58:30 AM EDT [facility] ([facility] [id number] [employer]) Name Value Range Interpretation Code Description Data Kathy rce(s) Supporting Document(s ) AST 26 U/L AST [facility] ([facility]) ID Date Data Source [id number] 01/07/2012 06:42:00 AM EST [facility] ([facility] [id number] [employer]) Name Value Range Interpretation Code Description Data Kathy rce(s) Supporting Document(s ) RDW 13.6 % RDW [facility] ([facility]) ID Date Data Source [id number] 01/07/2012 06:42:00 AM EST [facility] ([facility] [id number] [employer]) Name Value Range Interpretation Code Description Data Kathy rce(s) Supporting Document(s ) MCHC 33.2 g/dL MCHC [facility] ([facility]) ID Date Data Source [id number] 01/07/2012 06:42:00 AM EST [facility] ([facility] [id number] [employer]) Name Value Range Interpretation Code Description Data Kathy rce(s) Supporting Document(s ) MCH 33.0 pg MCH [facility] ([facility]) ID Date Data Source [id number] 01/07/2012 06:42:00 AM EST [facility] ([facility] [id number] [employer]) Name Value Range Interpretation Code Description Data Kathy rce(s) Supporting Document(s ) MCV 99.5 fL MCV [facility] ([facility]) ID Date Data Source [id number] 01/07/2012 06:42:00 AM EST [facility] ([facility] [id number] For [employer]) Name Value Range Interpretation Description Data Sup porting Code Source(s) Document(s ) Hematocrit 47.5 % HEMATOCRIT [facility] [Pure volume ([facility]] of [place] For Blood by [employer]) count ID Date Data Source [id number] 01/07/2012 06:42:00 AM EST [facility] ([facility] [id number] For Human [employer] t) Name Value Range Interpretation Description Data Sup porting Code Source(s) Document(s ) Hemoglobin 15.8 g/dL HEMOGLOBIN [facility] [Mass/volume] ([place] in [facility] High View venous blood For Human by [employer]) ID Date Data Source [id number] 01/07/2012 06:42:00 AM EST [facility] ([facility] [id number] [employer]) Name Value Range Interpretation Code Description Data Kathy rce(s) Supporting Document(s ) RBC 4.78 RBC [facility] Mill/mcL ([facility]) ID Date Data Source [id number] 01/07/2012 06:42:00 AM EST [facility] ([facility] [id number] [employer]) Name Value Range Interpretation Code Description Data Kathy rce(s) Supporting Document(s ) WBC 4.7 WBC C[facility]/mcL ([facility]) ID Date Data Source [id number] 01/07/2012 06:42:00 AM EST [facility] ([facility] [id number] [employer]) Name Value Range Interpretation Description Data Sup porting Code Source(s) Document(s ) EGFR 138 EGFR C[facility]MD [facility] mL/min/1. [facility] ([address]) ID Date Data Source [id number] 01/07/2012 06:42:00 AM EST [facility] ([facility] [id number] For [employer] t) Name Value Range Interpretation Description Data Sup porting Code Source(s) Document(s ) EGFR NON AFR 119 EGFR NON AFR [facility] mL/min/1. [facility] ([address]) ID Date Data Source [id number] 01/07/2012 06:42:00 AM EST [facility] ([facility] [id number] For [employer] t) Name Value Range Interpretation Description Data Sup porting Code Source(s) Document(s ) Calcium 9.9 mg/dL CALCIUM [facility] [Moles/volume] ([facility] collected for For Human unspecified Development) duration ID Date Data Source [id number] 01/07/2012 06:42:00 AM EST [facility] ([facility] [id number] For Human [employer]men t) Name Value Range Interpretation Description Data Sup porting Code Source(s) Document(s ) Creatinine 0.72 CREATININE [facility] [Moles/volume] mg/dL ([place] in [facility] High View fluid For Human Development) ID Date Data Source [id number] 01/07/2012 06:42:00 AM EST [facility] ([facility] [id number] [employer] t) Name Value Range Interpretation Description Data Sup porting Code Source(s) Document(s ) Urea 17 mg/dL UREA NITROGEN C[facility]MD nitrogen ([place] [Moles/volum High View e] in Blood For Human Development) ID Date Data Source [id number] 01/07/2012 06:42:00 AM EST [facility] ([facility] [id number] For Human [employer]men t) Name Value Range Interpretation Description Data Sup porting Code Source(s) Document(s ) Carbon 22 mmol/L CARBON DIOXIDE CureMD dioxide ([place] [[facility]] High View in Gas For Human delivery Development) system ID Date Data Source [id number] 01/07/2012 06:42:00 AM EST [facility] ([facility] [id number] For Human [employer]men t) Name Value Range Interpretation Description Data Sup porting Code Source(s) Document(s ) Chloride 107 CHLORIDE C[facility] [Moles/volum mmol/L ([place] e] in Serum, High View For Plasma or Human Blood Development) ID Date Data Source [id number] 01/07/2012 06:42:00 AM EST [facility] ([facility] [id number] For Human Developmen t) Name Value Range Interpretation Description Data Sup porting Code Source(s) Document(s ) Potassium 4.1 POTASSIUM CureMD [Mass/volume] mmol/L ([facility] Blood High View For Human Development) ID Date Data Source [id number] 01/07/2012 06:42:00 AM EST [facility] ([facility] [id number] For Human Developmen t) Name Value Range Interpretation Description Data Sup porting Code Source(s) Document(s ) Sodium 147 mmol/L SODIUM CureMD [Moles/volu ([place] me] in High View For Serum, Human Plasma or Development) Blood ID Date Data Source [id number] 01/07/2012 06:42:00 AM EST [facility] ([facility] [id number] For Human Developmen t) Name Value Range Interpretation Description Data Sup porting Code Source(s) Document(s ) Glucose 58 mg/dL GLUCOSE Cure[facility] [Moles/volum ([place] e] in Serum, High View For Plasma or Human Blood Development) ID Date Data Source [id number] 01/07/2012 06:42:00 AM EST [facility] ([facility] [id number] [employer]) Name Value Range Interpretation Description Data Sup porting Code Source(s) Document(s ) Creatinine 0.72 CREATININE Cure[facility] [Moles/volume] mg/dL ([facility] Vitreous High View fluid For Human Development) ID Date Data Source [id number] 01/07/2012 06:42:00 AM EST Cure[facility] ([facility] [id number] [employer]) Name Value Range Interpretation Description Data Sup porting Code Source(s) Document(s ) Urea 17 mg/dL UREA NITROGEN CureMD nitrogen ([place] [Moles/volum High View e] in Blood For Human Development) ID Date Data Source [id number] 01/07/2012 06:42:00 AM EST Cure[facility] ([facility] [id number] [employer] t) Name Value Range Interpretation Description Data Sup porting Code Source(s) Document(s ) EGFR NON AFR 119 EGFR NON AFR CureMD THAI mL/min/1. THAI ([place] 73m[address] High View For Human [facility]) ID Date Data Source [id number] 01/07/2012 06:42:00 AM EST Cure[facility] ([facility] [id number] [employer]) Name Value Range Interpretation Description Data Sup porting Code Source(s) Document(s ) Calcium 9.9 mg/dL CALCIUM [facility] [Moles/volume] ([facility] Urine High View collected for For Human unspecified Development) duration ID Date Data Source [id number] 01/07/2012 06:42:00 AM EST C[facility] ([facility] [id number] [employer] t) Name Value Range Interpretation Description Data Sup porting Code Source(s) Document(s ) EGFR 138 EGFR [facility] THAI mL/min/1. THAI ([place] [address] For Human [facility]) ID Date Data Source [id number] 01/07/2012 06:42:00 AM EST Cure[facility] ([facility] [id number] [employer]) Name Value Range Interpretation Description Data Sup porting Code Source(s) Document(s ) Potassium 4.1 POTASSIUM [facility] [Mass/volume] mmol/L ([place] in Blood High View [employer]) ID Date Data Source [id number] 01/07/2012 06:42:00 AM EST C[facility] ([facility] [id number] [employer] t) Name Value Range Interpretation Description Data Sup porting Code Source(s) Document(s ) Sodium 147 mmol/L SODIUM [facility] [Moles/volu ([facility]] in High View For Serum, Human Plasma or Development) Blood ID Date Data Source [id number] 01/07/2012 06:42:00 AM EST C[facility] ([facility] [id number] [employer] t) Name Value Range Interpretation Description Data Sup porting Code Source(s) Document(s ) Carbon 22 mmol/L CARBON DIOXIDE CureMD dioxide ([place] [[facility]] High View in Gas For Human delivery Development) system ID Date Data Source [id number] 01/07/2012 06:42:00 AM EST C[facility] ([facility] [id number] [employer] t) Name Value Range Interpretation Description Data Sup porting Code Source(s) Document(s ) Chloride 107 CHLORIDE [facility] [Moles/volum mmol/L ([facility]] in Serum, High View For Plasma or Human Blood Development) ID Date Data Source [id number] 01/07/2012 06:42:00 AM EST Cure[facility] ([facility] [id number] For Human [employer]men t) Name Value Range Interpretation Description Data Sup porting Code Source(s) Document(s ) Glucose 58 mg/dL GLUCOSE C[facility] [Moles/volum ([facility]] in Serum, High View For Plasma or Human Blood Development) ID Date Data Source [id number] 01/07/2012 06:42:00 AM EST C[facility] ([facility] [id number] For Human [employer] t) Name Value Range Interpretation Description Data Sup porting Code Source(s) Document(s ) VALPROIC 114.6 VALPROIC [facility] ACID,TOTAL mg/L ACID,TOTAL ([facility]) ID Date Data Source [id number] 01/07/2012 06:42:00 AM EST C[facility] ([facility] [id number] [employer] t) Name Value Range Interpretation Description Data Sup porting Code Source(s) Document(s ) EOSINOPHI 28 EOSINOPHILS,ABS CureMD LS,ABSOLU Cells/mcL [place] ([facility]) ID Date Data Source [id number] 01/07/2012 06:42:00 AM EST C[facility] ([facility] [id number] For Human [employer] t) Name Value Range Interpretation Code Description Data Kathy rce(s) Supporting Document(s ) WBC 4.7 WBC [facility] Thous/mcL ([facility]) ID Date Data Source [id number] 01/07/2012 06:42:00 AM EST C[facility] ([facility] [id number] [employer] t) Name Value Range Interpretation Code Description Data Kathy rce(s) Supporting Document(s ) RBC 4.78 RBC [facility] Mill/mcL ([facility]) ID Date Data Source [id number] 01/07/2012 06:42:00 AM EST C[facility] ([facility] [id number] [employer]) Name Value Range Interpretation Description Data Sup porting Code Source(s) Document(s ) Hematocrit 47.5 % HEMATOCRIT C[facility] [Pure volume ([place] fraction] of High View For Blood by Human Automated Development) count ID Date Data Source [id number] 01/07/2012 06:42:00 AM EST C[facility] ([facility] [id number] For [employer] t) Name Value Range Interpretation Code Description Data Kathy rce(s) Supporting Document(s ) MCV 99.5 fL MCV [facility] ([facility]) ID Date Data Source [id number] 01/07/2012 06:42:00 AM EST C[facility] ([facility] [id number] For [employer] t) Name Value Range Interpretation Description Data Sup porting Code Source(s) Document(s ) Hemoglobin 15.8 g/dL HEMOGLOBIN [facility] [Mass/volume] ([facility] venous blood For Human by Oximetry Development) ID Date Data Source [id number] 01/07/2012 06:42:00 AM EST C[facility] ([facility] [id number] For Human [employer] t) Name Value Range Interpretation Code Description Data Kathy rce(s) Supporting Document(s ) MCH 33.0 pg MCH [facility] ([facility]) ID Date Data Source [id number] 01/07/2012 06:42:00 AM EST C[facility] ([facility] [id number] For [employer] t) Name Value Range Interpretation Code Description Data Kathy rce(s) Supporting Document(s ) RDW 13.6 % RDW [facility] ([facility]) ID Date Data Source [id number] 01/07/2012 06:42:00 AM EST C[facility] ([facility] [id number] [employer]) Name Value Range Interpretation Description Data Sup porting Code Source(s) Document(s ) PLATELET 146 PLATELET COUNT [facility] COUNT Thous/mcL ([facility]) ID Date Data Source [id number] 01/07/2012 06:42:00 AM EST C[facility] ([facility] [id number] [employer] t) Name Value Range Interpretation Code Description Data Kathy rce(s) Supporting Document(s ) MCHC 33.2 g/dL MCHC [facility] ([facility]) ID Date Data Source [id number] 01/07/2012 06:42:00 AM EST C[facility] ([facility] [id number] [employer]) Name Value Range Interpretation Code Description Data Kathy rce(s) Supporting Document(s ) MPV 10.5 fL MPV [facility] ([facility]) ID Date Data Source [id number] 01/07/2012 06:42:00 AM EST C[facility] ([facility] [id number] For [employer] t) Name Value Range Interpretation Code Description Data Supporting Source(s) Document(s ) TOTAL 44.2 % TOTAL [facility] LYMPHOCYTE LYMPHOCYTES,% ([facility]) ID Date Data Source [id number] 01/07/2012 06:42:00 AM EST C[facility] ([facility] [id number] [employer]) Name Value Range Interpretation Code Description Data Kathy rce(s) Supporting Document(s ) EOSINOPHIL 0.6 % EOSINOPHILS,% CureMD S,% ([facility]) ID Date Data Source [id number] 01/07/2012 06:42:00 AM EST C[facility] ([facility] [id number] [employer]) Name Value Range Interpretation Description Data Sup porting Code Source(s) Document(s ) LYMPHOCYT 2077 LYMPHOCYTES,ABS [facility] ES,ABSOLU Cells/mcL [place] ([facility]) ID Date Data Source [id number] 01/07/2012 06:42:00 AM EST C[facility] ([facility] [id number] [employer] t) Name Value Range Interpretation Code Description Data Kathy rce(s) Supporting Document(s ) BASOPHILS, 0.2 % BASOPHILS,% Cure[facility] % ([facility]) ID Date Data Source [id number] 01/07/2012 06:42:00 AM EST Cure[facility] ([facility] [id number] [employer]) Name Value Range Interpretation Code Description Data Kathy rce(s) Supporting Document(s ) MONOCYTES, 3.5 % MONOCYTES,% CureMD % ([facility]) ID Date Data Source [id number] 01/07/2012 06:42:00 AM EST C[facility] ([facility] [id number] [employer] t) Name Value Range Interpretation Code Description Data Supporting Source(s) Document(s ) TOTAL 51.5 % TOTAL [facility] NEUTROPHIL NEUTROPHILS,% ([facility]) ID Date Data Source [id number] 01/07/2012 06:42:00 AM EST C[facility] ([facility] [id number] [employer] t) Name Value Range Interpretation Description Data Sup porting Code Source(s) Document(s ) NEUTROPHI 2421 NEUTROPHILS,ABS [facility] LS,ABSOLU Cells/mcL [place] ([facility]) ID Date Data Source [id number] 01/07/2012 06:42:00 AM EST C[facility] ([facility] [id number] [employer]) Name Value Range Interpretation Description Data Sup porting Code Source(s) Document(s ) MONOCYTES 165 MONOCYTES,ABSOL Cure[facility] ,ABSOLUTE Cells/mcL [place] ([facility]) ID Date Data Source [id number] 01/07/2012 06:42:00 AM EST C[facility] ([facility] [id number] [employer] t) Name Value Range Interpretation Description Data Sup porting Code Source(s) Document(s ) BASOPHILS 9 BASOPHILS,ABSOL Cure[facility] ,ABSOLUTE Cells/mcL [place] ([facility]) ID Date Data Source [id number] 01/07/2012 06:42:00 AM EST C[facility] ([facility] [id number] For [employer] t) Name Value Range Interpretation Description Data Sup porting Code Source(s) Document(s ) VALPROIC 114.6 VALPROIC [facility] ACID,TOTAL mg/L ACID,TOTAL ([facility]) ID Date Data Source [id number] 01/07/2012 06:42:00 AM EST C[facility] ([facility] [id number] For [employer]men t) Name Value Range Interpretation Description Data Sup porting Code Source(s) Document(s ) BASOPHILS 9 BASOPHILS,ABSOL C[facility] ,ABSOLUTE Cells/mcL [place] ([facility]) ID Date Data Source [id number] 01/07/2012 06:42:00 AM EST C[facility] ([facility] [id number] [employer]) Name Value Range Interpretation Description Data Sup porting Code Source(s) Document(s ) EOSINOPHI 28 EOSINOPHILS,ABS CureMD LS,ABSOLU Cells/mcL [place] ([facility]) ID Date Data Source [id number] 01/07/2012 06:42:00 AM EST Cure[facility] ([facility] [id number] [employer]men t) Name Value Range Interpretation Description Data Sup porting Code Source(s) Document(s ) MONOCYTES 165 MONOCYTES,ABSOL [facility]ure[facility] ,ABSOLUTE Cells/mcL [place] ([facility]) ID Date Data Source [id number] 01/07/2012 06:42:00 AM EST C[facility] ([facility] [id number] For [employer]men t) Name Value Range Interpretation Description Data Sup porting Code Source(s) Document(s ) LYMPHOCYT 2077 LYMPHOCYTES,ABS [facility]ure[facility] ES,ABSOLU Cells/mcL [place] ([facility]) ID Date Data Source [id number] 01/07/2012 06:42:00 AM EST Cure[facility] ([facility] [id number] [employer] t) Name Value Range Interpretation Description Data Sup porting Code Source(s) Document(s ) NEUTROPHI 2421 NEUTROPHILS,ABS CureMD LS,ABSOLU Cells/mcL [place] ([facility]) ID Date Data Source [id number] 01/07/2012 06:42:00 AM EST Cure[facility] ([facility] [id number] For [employer]men t) Name Value Range Interpretation Code Description Data Kathy rce(s) Supporting Document(s ) BASOPHILS, 0.2 % BASOPHILS,% CureMD % ([facility]) ID Date Data Source [id number] 01/07/2012 06:42:00 AM EST C[facility] ([facility] [id number] For [employer] t) Name Value Range Interpretation Code Description Data Kathy rce(s) Supporting Document(s ) EOSINOPHIL 0.6 % EOSINOPHILS,% CureMD S,% ([facility]) ID Date Data Source [id number] 01/07/2012 06:42:00 AM EST C[facility] ([facility] [id number] For [employer]men t) Name Value Range Interpretation Code Description Data Kathy rce(s) Supporting Document(s ) MONOCYTES, 3.5 % MONOCYTES,% [facility]ure[facility] % ([facility]) ID Date Data Source [id number] 01/07/2012 06:42:00 AM EST Cure[facility] ([facility] [id number] For [employer]men t) Name Value Range Interpretation Code Description Data Supporting Source(s) Document(s ) TOTAL 44.2 % TOTAL [facility] LYMPHOCYTE LYMPHOCYTES,% ([facility] [employer]) ID Date Data Source [id number] 01/07/2012 06:42:00 AM EST Cure[facility] ([facility] [id number] For Human [employer]men t) Name Value Range Interpretation Code Description Data Supporting Source(s) Document(s ) TOTAL 51.5 % TOTAL [facility] NEUTROPHIL NEUTROPHILS,% ([facility]) ID Date Data Source [id number] 01/07/2012 06:42:00 AM EST C[facility] ([facility] [id number] For Human [employer]men t) Name Value Range Interpretation Code Description Data Kathy rce(s) Supporting Document(s ) MPV 10.5 fL MPV [facility] ([facility]) ID Date Data Source [id number] 01/07/2012 06:42:00 AM EST [facility] ([facility] [id number] For Human [employer]men t) Name Value Range Interpretation Description Data Sup porting Code Source(s) Document(s ) PLATELET 146 PLATELET COUNT [facility] COUNT Thous/mcL ([facility]) ID Date Data Source [id number] 01/07/2012 06:42:00 AM EST C[facility] ([facility] [id number] For Human [employer]men t) Name Value Range Interpretation Description Data Sup porting Code Source(s) Document(s ) VALPROIC 114.6 VALPROIC [facility] ACID,TOTAL mg/L ACID,TOTAL ([facility]) ID Date Data Source [id number] 01/07/2012 06:42:00 AM EST C[facility] ([facility] [id number] For Human [employer]men t) Name Value Range Interpretation Description Data Sup porting Code Source(s) Document(s ) BASOPHILS 9 BASOPHILS,ABSOL [facility] ,ABSOLUTE Cells/mcL [place] ([facility]) ID Date Data Source [id number] 01/07/2012 06:42:00 AM EST C[facility] ([facility] [id number] For [employer]men t) Name Value Range Interpretation Description Data Sup porting Code Source(s) Document(s ) EOSINOPHI 28 EOSINOPHILS,ABS CureMD LS,ABSOLU Cells/mcL [place] ([facility]) ID Date Data Source [id number] 01/07/2012 06:42:00 AM EST Cure[facility] ([facility] [id number] For Human [employer]men t) Name Value Range Interpretation Description Data Sup porting Code Source(s) Document(s ) MONOCYTES 165 MONOCYTES,ABSOL [facility] ,ABSOLUTE Cells/mcL [place] ([facility]) ID Date Data Source [id number] 01/07/2012 06:42:00 AM EST C[facility] ([facility] [id number] For [employer]men t) Name Value Range Interpretation Description Data Sup porting Code Source(s) Document(s ) LYMPHOCYT 2077 LYMPHOCYTES,ABS [facility]ure[facility] ES,ABSOLU Cells/mcL [place] ([facility]) ID Date Data Source [id number] 01/07/2012 06:42:00 AM EST [facility] ([facility] [id number] For Human [employer]men t) Name Value Range Interpretation Description Data Sup porting Code Source(s) Document(s ) NEUTROPHI 2421 NEUTROPHILS,ABS [facility]ure[facility] LS,ABSOLU Cells/mcL [place] ([facility]) ID Date Data Source [id number] 01/07/2012 06:42:00 AM EST [facility] ([facility] [id number] For [employer]men t) Name Value Range Interpretation Code Description Data Kathy rce(s) Supporting Document(s ) BASOPHILS, 0.2 % BASOPHILS,% Cure[facility] % ([facility]) ID Date Data Source [id number] 01/07/2012 06:42:00 AM EST Cure[facility] ([facility] [id number] For Human [employer]men t) Name Value Range Interpretation Code Description Data Kathy rce(s) Supporting Document(s ) EOSINOPHIL 0.6 % EOSINOPHILS,% CureMD S,% ([facility]) ID Date Data Source [id number] 01/07/2012 06:42:00 AM EST [facility] ([facility] [id number] For Human Developmen t) Name Value Range Interpretation Code Description Data Kathy rce(s) Supporting Document(s ) MONOCYTES, 3.5 % MONOCYTES,% [facility]ure[facility] % ([facility]) ID Date Data Source [id number] 01/07/2012 06:42:00 AM EST [facility] ([facility] [id number] For Human [employer]men t) Name Value Range Interpretation Code Description Data Supporting Source(s) Document(s ) TOTAL 44.2 % TOTAL [facility] LYMPHOCYTE LYMPHOCYTES,% ([facility],% [facility]) ID Date Data Source [id number] 01/07/2012 06:42:00 AM EST Cure[facility] ([facility] [id number] For Human [employer]men t) Name Value Range Interpretation Code Description Data Supporting Source(s) Document(s ) TOTAL 51.5 % TOTAL [facility] NEUTROPHIL NEUTROPHILS,% ([facility],% [facility]) ID Date Data Source [id number] 01/07/2012 06:42:00 AM EST C[facility] ([facility] [id number] For Human [employer]men t) Name Value Range Interpretation Code Description Data Kathy rce(s) Supporting Document(s ) MPV 10.5 fL MPV [facility] ([facility]) ID Date Data Source [id number] 01/07/2012 06:42:00 AM EST C[facility] ([facility] [id number] For Human [employer]men t) Name Value Range Interpretation Description Data Sup porting Code Source(s) Document(s ) PLATELET 146 PLATELET COUNT [facility] COUNT Thous/mcL ([facility]) ID Date Data Source [id number] 01/07/2012 06:42:00 AM EST C[facility] ([facility] [id number] For Human [employer]men t) Name Value Range Interpretation Code Description Data Kathy rce(s) Supporting Document(s ) RDW 13.6 % RDW [facility] ([facility]) ID Date Data Source [id number] 01/07/2012 06:42:00 AM EST C[facility] ([facility] [id number] For Human Developmen t) Name Value Range Interpretation Code Description Data Kathy rce(s) Supporting Document(s ) MCHC 33.2 g/dL MCHC [facility] ([facility]) ID Date Data Source [id number] 01/07/2012 06:42:00 AM EST Cure[facility] ([facility] [id number] For Human [employer]men t) Name Value Range Interpretation Code Description Data Kathy rce(s) Supporting Document(s ) MCH 33.0 pg MCH [facility] ([facility]) ID Date Data Source [id number] 01/07/2012 06:42:00 AM EST [facility] ([facility] [id number] For Human [employer]men t) Name Value Range Interpretation Code Description Data Kathy rce(s) Supporting Document(s ) MCV 99.5 fL MCV [facility] ([facility]) ID Date Data Source [id number] 01/07/2012 06:42:00 AM EST C[facility] ([facility] [id number] For Human Developmen t) Name Value Range Interpretation Description Data Sup porting Code Source(s) Document(s ) Hematocrit 47.5 % HEMATOCRIT Cure[facility] [Pure volume ([facility]] of High View For Blood by Human Automated Development) count ID Date Data Source [id number] 01/07/2012 06:42:00 AM EST C[facility] ([facility] [id number] For Human Developmen t) Name Value Range Interpretation Description Data Sup porting Code Source(s) Document(s ) Hemoglobin 15.8 g/dL HEMOGLOBIN Cure[facility] [Mass/volume] ([place] in [facility] High View venous blood For Human by Oxim[employer] Development) ID Date Data Source [id number] 01/07/2012 06:42:00 AM EST C[facility] ([facility] [id number] For Human [employer]men t) Name Value Range Interpretation Code Description Data Kathy rce(s) Supporting Document(s ) RBC 4.78 RBC [facility] Mill/mcL ([facility]) ID Date Data Source [id number] 01/07/2012 06:42:00 AM EST [facility] ([facility] [id number] For Human [employer]men t) Name Value Range Interpretation Code Description Data Kathy rce(s) Supporting Document(s ) WBC 4.7 WBC [facility] Thous/mcL ([facility]) ID Date Data Source [id number] 01/07/2012 06:42:00 AM EST [facility] ([facility] [id number] For [employer]men t) Name Value Range Interpretation Description Data Sup porting Code Source(s) Document(s ) EGFR 138 EGFR CureMD THAI mL/min/1. THAI ([address]) ID Date Data Source [id number] 01/07/2012 06:42:00 AM EST C[facility] ([facility] [id number] For [employer]men t) Name Value Range Interpretation Description Data Sup porting Code Source(s) Document(s ) EGFR NON AFR 119 EGFR NON AFR C[facility] THAI mL/min/1. [facility]AI ([address]) ID Date Data Source [id number] 01/07/2012 06:42:00 AM EST Cure[facility] ([facility] [id number] For Human [employer]men t) Name Value Range Interpretation Description Data Sup porting Code Source(s) Document(s ) Calcium 9.9 mg/dL CALCIUM CureMD [Moles/volume] ([facility] High View collected for For Human unspecified Development) duration ID Date Data Source [id number] 01/07/2012 06:42:00 AM EST Cure[facility] ([facility] [id number] For Human [employer]men t) Name Value Range Interpretation Description Data Sup porting Code Source(s) Document(s ) Creatinine 0.72 CREATININE CureMD [Moles/volume] mg/dL ([place] in [facility] High View fluid For Human Development) ID Date Data Source [id number] 01/07/2012 06:42:00 AM EST C[facility] ([facility] [id number] For Human [employer]men t) Name Value Range Interpretation Description Data Sup porting Code Source(s) Document(s ) Urea 17 mg/dL UREA NITROGEN CureMD nitrogen ([place] [[facility]volum High View e] in Blood For Human Development) ID Date Data Source [id number] 01/07/2012 06:42:00 AM EST C[facility] ([facility] [id number] For Human [employer]men t) Name Value Range Interpretation Description Data Sup porting Code Source(s) Document(s ) Carbon 22 mmol/L CARBON DIOXIDE CureMD dioxide ([place] [r/[facility]] High View in Gas For Human delivery Development) system ID Date Data Source [id number] 01/07/2012 06:42:00 AM EST C[facility] ([facility] [id number] For Human [employer]men t) Name Value Range Interpretation Description Data Sup porting Code Source(s) Document(s ) Chloride 107 CHLORIDE CureMD [Moles/volum mmol/L ([place] e] in Serum, High View For Plasma or Human Blood Development) ID Date Data Source [id number] 01/07/2012 06:42:00 AM EST [facility] ([facility] [id number] For Human [employer] t) Name Value Range Interpretation Description Data Sup porting Code Source(s) Document(s ) Potassium 4.1 POTASSIUM [facility] [Mass/volume] mmol/L ([facility] Blood High View For Human Development) ID Date Data Source [id number] 01/07/2012 06:42:00 AM EST [facility] ([facility] [id number] [employer] t) Name Value Range Interpretation Description Data Sup porting Code Source(s) Document(s ) Sodium 147 mmol/L SODIUM [facility] [Moles/volu ([place] me] in High View For Serum, Human Plasma or Development) Blood ID Date Data Source [id number] 01/07/2012 06:42:00 AM EST [facility] ([facility] [id number] For [employer] t) Name Value Range Interpretation Description Data Sup porting Code Source(s) Document(s ) Glucose 58 mg/dL GLUCOSE [facility] [Moles/volum ([place] e] in Serum, High View For Plasma or Human Blood Development) ID Date Data Source [id number] 09/27/2011 11:26:00 AM EDT [facility] ([facility] [id number] For [employer] t) Name Value Range Interpretation Description Data Sup porting Code Source(s) Document(s ) BILIRUBIN 0.2 mg/dL BILIRUBIN,INDIR [facility] ,INDIRECT ECT ([facility]) ID Date Data Source [id number] 09/27/2011 11:26:00 AM EDT [facility] ([facility] [id number] For Human [employer]men t) Name Value Range Interpretation Code Description Data Kathy rce(s) Supporting Document(s ) ALT 13 U/L ALT [facility] ([facility]) ID Date Data Source [id number] 09/27/2011 11:26:00 AM EDT [facility] ([facility] [id number] For Human [employer]men t) Name Value Range Interpretation Code Description Data Kathy rce(s) Supporting Document(s ) AST 16 U/L AST [facility] ([facility]) ID Date Data Source [id number] 09/27/2011 11:26:00 AM EDT [facility] ([facility] [id number] For Human [employer]men t) Name Value Range Interpretation Description Data Sup porting Code Source(s) Document(s ) Alkaline 61 U/L ALKALINE [facility] phosphatase PHOSPHATASE ([place] [Enzymatic High View activity/volume For Human ] in Serum, Development) Plasma or Blood ID Date Data Source [id number] 09/27/2011 11:26:00 AM EDT [facility] ([facility] [id number] For Human [employer]men t) Name Value Range Interpretation Description Data Sup porting Code Source(s) Document(s ) BILIRUBIN 0.1 mg/dL BILIRUBIN,DIREC [facility] ,DIRECT T ([facility]) ID Date Data Source [id number] 09/27/2011 11:26:00 AM EDT [facility] ([facility] [id number] For Human Developmen t) Name Value Range Interpretation Description Data Sup porting Code Source(s) Document(s ) BILIRUBIN 0.3 mg/dL BILIRUBIN,TOTAL [facility] ,TOTAL ([facility]) ID Date Data Source [id number] 09/27/2011 11:26:00 AM EDT [facility] ([facility] [id number] For Human Developmen t) Name Value Range Interpretation Code Description Data Kathy rce(s) Supporting Document(s ) A/G RATIO 1.1 A/G RATIO [facility] ([facility]) ID Date Data Source [id number] 09/27/2011 11:26:00 AM EDT [facility] ([facility] [id number] For Human Developmen t) Name Value Range Interpretation Description Data Sup porting Code Source(s) Document(s ) GLOBULIN, 3.7 g/dL GLOBULIN,CALCUL [facility] CALCULATE ATED ([facility]) ID Date Data Source [id number] 09/27/2011 11:26:00 AM EDT [facility] ([facility] [id number] For Human Developmen t) Name Value Range Interpretation Description Data Sup porting Code Source(s) Document(s ) Albumin 4.2 g/dL ALBUMIN [facility] [Mass/volume] ([place] in Blood by High View Bromocresol For Human purple (BCP) Development) dye binding method ID Date Data Source [id number] 09/27/2011 11:26:00 AM EDT [facility] ([facility] [id number] For Human Developmen t) Name Value Range Interpretation Code Description Data Supporting Source(s) Document(s ) PROTEIN,T 7.9 g/dL PROTEIN,TOTAL [facility] OTAL ([facility]) ID Date Data Source [id number] 09/27/2011 11:26:00 AM EDT [facility] ([facility] [id number] For Human Developmen t) Name Value Range Interpretation Description Data Sup porting Code Source(s) Document(s ) BILIRUBIN 0.2 mg/dL BILIRUBIN,INDIR [facility] ,INDIRECT ECT ([facility]) ID Date Data Source [id number] 09/27/2011 11:26:00 AM EDT [facility] ([facility] [id number] For Human Developmen t) Name Value Range Interpretation Code Description Data Kathy rce(s) Supporting Document(s ) ALT 13 U/L ALT [facility] ([facility]) ID Date Data Source [id number] 09/27/2011 11:26:00 AM EDT [facility] ([facility] [id number] For Human Developmen t) Name Value Range Interpretation Code Description Data Kathy rce(s) Supporting Document(s ) AST 16 U/L AST [facility] ([facility]) ID Date Data Source [id number] 09/27/2011 11:26:00 AM EDT [facility] ([facility] [id number] For Human Developmen t) Name Value Range Interpretation Description Data Sup porting Code Source(s) Document(s ) Alkaline 61 U/L ALKALINE [facility] phosphatase PHOSPHATASE ([place] [Enzymatic High View activity/volume For Human ] in Serum, Development) Plasma or Blood ID Date Data Source [id number] 09/27/2011 11:26:00 AM EDT [facility] ([facility] [id number] For Human Developmen t) Name Value Range Interpretation Description Data Sup porting Code Source(s) Document(s ) BILIRUBIN 0.1 mg/dL BILIRUBIN,DIREC [facility] ,DIRECT T ([facility]) ID Date Data Source [id number] 09/27/2011 11:26:00 AM EDT [facility] ([facility] [id number] For Human Developmen t) Name Value Range Interpretation Description Data Sup porting Code Source(s) Document(s ) BILIRUBIN 0.3 mg/dL BILIRUBIN,TOTAL [facility] ,TOTAL ([facility]) ID Date Data Source [id number] 09/27/2011 11:26:00 AM EDT [facility] ([facility] [id number] For Human Developmen t) Name Value Range Interpretation Code Description Data Kathy rce(s) Supporting Document(s ) A/G RATIO 1.1 A/G RATIO [facility] ([facility]) ID Date Data Source [id number] 09/27/2011 11:26:00 AM EDT [facility] ([facility] [id number] For Human Developmen t) Name Value Range Interpretation Description Data Sup porting Code Source(s) Document(s ) GLOBULIN, 3.7 g/dL GLOBULIN,CALCUL [facility] CALCULATE ATED ([facility]) ID Date Data Source [id number] 09/27/2011 11:26:00 AM EDT [facility] ([facility] [id number] For Human Developmen t) Name Value Range Interpretation Description Data Sup porting Code Source(s) Document(s ) Albumin 4.2 g/dL ALBUMIN [facility] [Mass/volume] ([place] in Blood by High View Bromocresol For Human purple (BCP) Development) dye binding method ID Date Data Source [id number] 09/27/2011 11:26:00 AM EDT [facility] ([facility] [id number] For Human Developmen t) Name Value Range Interpretation Code Description Data Supporting Source(s) Document(s ) PROTEIN,T 7.9 g/dL PROTEIN,TOTAL [facility] OTAL ([facility]) ID Date Data Source [id number] 09/27/2011 11:26:00 AM EDT [facility] ([facility] [id number] For Human Developmen t) Name Value Range Interpretation Description Data Sup porting Code Source(s) Document(s ) VALPROIC 68.9 mg/L VALPROIC [facility] ACID,TOTAL ACID,TOTAL ([facility]) ID Date Data Source [id number] 09/27/2011 11:26:00 AM EDT [facility] ([facility] [id number] For Human Developmen t) Name Value Range Interpretation Description Data Sup porting Code Source(s) Document(s ) BILIRUBIN 0.2 mg/dL BILIRUBIN,INDIR [facility] ,INDIRECT ECT ([facility]) ID Date Data Source [id number] 09/27/2011 11:26:00 AM EDT [facility] ([facility] [id number] For Human Developmen t) Name Value Range Interpretation Code Description Data Kathy rce(s) Supporting Document(s ) ALT 13 U/L ALT [facility] ([facility]) ID Date Data Source [id number] 09/27/2011 11:26:00 AM EDT [facility] ([facility] [id number] For Human Developmen t) Name Value Range Interpretation Code Description Data Kathy rce(s) Supporting Document(s ) AST 16 U/L AST [facility] ([facility]) ID Date Data Source [id number] 09/27/2011 11:26:00 AM EDT [facility] ([facility] [id number] For Human Developmen t) Name Value Range Interpretation Description Data Sup porting Code Source(s) Document(s ) Alkaline 61 U/L ALKALINE [facility] phosphatase PHOSPHATASE ([place] [Enzymatic High View activity/volume For Human ] in Serum, Development) Plasma or Blood ID Date Data Source [id number] 09/27/2011 11:26:00 AM EDT [facility] ([facility] [id number] For Human Developmen t) Name Value Range Interpretation Description Data Sup porting Code Source(s) Document(s ) BILIRUBIN 0.1 mg/dL BILIRUBIN,DIREC [facility] ,DIRECT T ([facility]) ID Date Data Source [id number] 09/27/2011 11:26:00 AM EDT [facility] ([facility] [id number] For Human Developmen t) Name Value Range Interpretation Description Data Sup porting Code Source(s) Document(s ) BILIRUBIN 0.3 mg/dL BILIRUBIN,TOTAL [facility] ,TOTAL ([facility]) ID Date Data Source [id number] 09/27/2011 11:26:00 AM EDT [facility] ([facility] [id number] For Human Developmen t) Name Value Range Interpretation Code Description Data Kathy rce(s) Supporting Document(s ) A/G RATIO 1.1 A/G RATIO [facility] ([facility]) ID Date Data Source [id number] 09/27/2011 11:26:00 AM EDT [facility] ([facility] [id number] For Human Developmen t) Name Value Range Interpretation Description Data Sup porting Code Source(s) Document(s ) GLOBULIN, 3.7 g/dL GLOBULIN,CALCUL [facility] CALCULATE ATED ([facility]) ID Date Data Source [id number] 09/27/2011 11:26:00 AM EDT [facility] ([facility] [id number] For Human Developmen t) Name Value Range Interpretation Description Data Sup porting Code Source(s) Document(s ) Albumin 4.2 g/dL ALBUMIN [facility] [Mass/volume] ([place] in Blood by High View Bromocresol For Human purple (BCP) Development) dye binding method ID Date Data Source [id number] 09/27/2011 11:26:00 AM EDT [facility] ([facility] [id number] For Human Developmen t) Name Value Range Interpretation Code Description Data Supporting Source(s) Document(s ) PROTEIN,T 7.9 g/dL PROTEIN,TOTAL [facility] OTAL ([facility]) ID Date Data Source [id number] 09/27/2011 11:26:00 AM EDT [facility] ([facility] [id number] For Human Developmen t) Name Value Range Interpretation Description Data Sup porting Code Source(s) Document(s ) BILIRUBIN 0.2 mg/dL BILIRUBIN,INDIR [facility] ,INDIRECT ECT ([facility]) ID Date Data Source [id number] 09/27/2011 11:26:00 AM EDT [facility] ([facility] [id number] For Human Developmen t) Name Value Range Interpretation Code Description Data Kathy rce(s) Supporting Document(s ) ALT 13 U/L ALT [facility] ([facility]) ID Date Data Source [id number] 09/27/2011 11:26:00 AM EDT [facility] ([facility] [id number] For Human Developmen t) Name Value Range Interpretation Code Description Data Kathy rce(s) Supporting Document(s ) AST 16 U/L AST [facility] ([facility]) ID Date Data Source [id number] 09/27/2011 11:26:00 AM EDT [facility] ([facility] [id number] For Human Developmen t) Name Value Range Interpretation Description Data Sup porting Code Source(s) Document(s ) Alkaline 61 U/L ALKALINE [facility] phosphatase PHOSPHATASE ([place] [Enzymatic High View activity/volume For Human ] in Serum, Development) Plasma or Blood ID Date Data Source [id number] 09/27/2011 11:26:00 AM EDT [facility] ([facility] [id number] For Human Developmen t) Name Value Range Interpretation Description Data Sup porting Code Source(s) Document(s ) BILIRUBIN 0.1 mg/dL BILIRUBIN,DIREC [facility] ,DIRECT T ([facility]) ID Date Data Source [id number] 09/27/2011 11:26:00 AM EDT [facility] ([facility] [id number] For Human Developmen t) Name Value Range Interpretation Description Data Sup porting Code Source(s) Document(s ) BILIRUBIN 0.3 mg/dL BILIRUBIN,TOTAL [facility] ,TOTAL ([facility]) ID Date Data Source [id number] 09/27/2011 11:26:00 AM EDT [facility] ([facility] [id number] For Human Developmen t) Name Value Range Interpretation Code Description Data Kathy rce(s) Supporting Document(s ) A/G RATIO 1.1 A/G RATIO [facility] ([facility]) ID Date Data Source [id number] 09/27/2011 11:26:00 AM EDT [facility] ([facility] [id number] For Human Developmen t) Name Value Range Interpretation Description Data Sup porting Code Source(s) Document(s ) GLOBULIN, 3.7 g/dL GLOBULIN,CALCUL [facility] CALCULATE ATED ([facility]) ID Date Data Source [id number] 09/27/2011 11:26:00 AM EDT [facility] ([facility] [id number] For Human Developmen t) Name Value Range Interpretation Description Data Sup porting Code Source(s) Document(s ) Albumin 4.2 g/dL ALBUMIN [facility] [Mass/volume] ([place] in Blood by High View Bromocresol For Human purple (BCP) Development) dye binding method ID Date Data Source [id number] 09/27/2011 11:26:00 AM EDT [facility] ([facility] [id number] For Human Developmen t) Name Value Range Interpretation Code Description Data Supporting Source(s) Document(s ) PROTEIN,T 7.9 g/dL PROTEIN,TOTAL [facility] OTAL ([facility]) ID Date Data Source [id number] 09/27/2011 11:26:00 AM EDT [facility] ([facility] [id number] For Human Developmen t) Name Value Range Interpretation Description Data Sup porting Code Source(s) Document(s ) VALPROIC 68.9 mg/L VALPROIC [facility] ACID,TOTAL ACID,TOTAL ([facility]) ID Date Data Source [id number] 09/27/2011 11:26:00 AM EDT [facility] ([facility] [id number] For Human Developmen t) Name Value Range Interpretation Description Data Sup porting Code Source(s) Document(s ) BILIRUBIN 0.2 mg/dL BILIRUBIN,INDIR [facility] ,INDIRECT ECT ([facility]) ID Date Data Source [id number] 09/27/2011 11:26:00 AM EDT [facility] ([facility] [id number] For Human Developmen t) Name Value Range Interpretation Code Description Data Kathy rce(s) Supporting Document(s ) ALT 13 U/L ALT [facility] ([facility]) ID Date Data Source [id number] 09/27/2011 11:26:00 AM EDT [facility] ([facility] [id number] For Human Developmen t) Name Value Range Interpretation Code Description Data Kathy rce(s) Supporting Document(s ) AST 16 U/L AST [facility] ([facility]) ID Date Data Source [id number] 09/27/2011 11:26:00 AM EDT [facility] ([facility] [id number] For Human Developmen t) Name Value Range Interpretation Description Data Sup porting Code Source(s) Document(s ) Alkaline 61 U/L ALKALINE [facility] phosphatase PHOSPHATASE ([place] [Enzymatic High View activity/volume For Human ] in Serum, Development) Plasma or Blood ID Date Data Source [id number] 09/27/2011 11:26:00 AM EDT [facility] ([facility] [id number] For Human Developmen t) Name Value Range Interpretation Description Data Sup porting Code Source(s) Document(s ) BILIRUBIN 0.1 mg/dL BILIRUBIN,DIREC [facility] ,DIRECT T ([facility]) ID Date Data Source [id number] 09/27/2011 11:26:00 AM EDT [facility] ([facility] [id number] For Human Developmen t) Name Value Range Interpretation Description Data Sup porting Code Source(s) Document(s ) BILIRUBIN 0.3 mg/dL BILIRUBIN,TOTAL [facility] ,TOTAL ([facility]) ID Date Data Source [id number] 09/27/2011 11:26:00 AM EDT [facility] ([facility] [id number] For Human Developmen t) Name Value Range Interpretation Code Description Data Kathy rce(s) Supporting Document(s ) A/G RATIO 1.1 A/G RATIO [facility] ([facility]) ID Date Data Source [id number] 09/27/2011 11:26:00 AM EDT [facility] ([facility] [id number] For Human Developmen t) Name Value Range Interpretation Description Data Sup porting Code Source(s) Document(s ) GLOBULIN, 3.7 g/dL GLOBULIN,CALCUL [facility] CALCULATE ATED ([facility]) ID Date Data Source [id number] 09/27/2011 11:26:00 AM EDT [facility] ([facility] [id number] For Human Developmen t) Name Value Range Interpretation Description Data Sup porting Code Source(s) Document(s ) Albumin 4.2 g/dL ALBUMIN [facility] [Mass/volume] ([place] in Blood by High View Bromocresol For Human purple (BCP) Development) dye binding method ID Date Data Source [id number] 09/27/2011 11:26:00 AM EDT [facility] ([facility] [id number] For Human Developmen t) Name Value Range Interpretation Code Description Data Supporting Source(s) Document(s ) PROTEIN,T 7.9 g/dL PROTEIN,TOTAL [facility] OTAL ([facility]) ID Date Data Source [id number] 09/27/2011 11:26:00 AM EDT [facility] ([facility] [id number] For Human Developmen t) Name Value Range Interpretation Description Data Sup porting Code Source(s) Document(s ) BILIRUBIN 0.2 mg/dL BILIRUBIN,INDIR [facility] ,INDIRECT ECT ([facility]) ID Date Data Source [id number] 09/27/2011 11:26:00 AM EDT [facility] ([facility] [id number] For Human Developmen t) Name Value Range Interpretation Code Description Data Kathy rce(s) Supporting Document(s ) ALT 13 U/L ALT [facility] ([facility]) ID Date Data Source [id number] 09/27/2011 11:26:00 AM EDT [facility] ([facility] [id number] For Human Developmen t) Name Value Range Interpretation Code Description Data Kathy rce(s) Supporting Document(s ) AST 16 U/L AST [facility] ([facility]) ID Date Data Source [id number] 09/27/2011 11:26:00 AM EDT [facility] ([facility] [id number] For Human Developmen t) Name Value Range Interpretation Description Data Sup porting Code Source(s) Document(s ) Alkaline 61 U/L ALKALINE [facility] phosphatase PHOSPHATASE ([place] [Enzymatic High View activity/volume For Human ] in Serum, Development) Plasma or Blood ID Date Data Source [id number] 09/27/2011 11:26:00 AM EDT [facility] ([facility] [id number] For Human Developmen t) Name Value Range Interpretation Description Data Sup porting Code Source(s) Document(s ) BILIRUBIN 0.1 mg/dL BILIRUBIN,DIREC [facility] ,DIRECT T ([facility]) ID Date Data Source [id number] 09/27/2011 11:26:00 AM EDT [facility] ([facility] [id number] For Human Developmen t) Name Value Range Interpretation Description Data Sup porting Code Source(s) Document(s ) BILIRUBIN 0.3 mg/dL BILIRUBIN,TOTAL [facility] ,TOTAL ([facility]) ID Date Data Source [id number] 09/27/2011 11:26:00 AM EDT [facility] ([facility] [id number] For Human Developmen t) Name Value Range Interpretation Code Description Data Kathy rce(s) Supporting Document(s ) A/G RATIO 1.1 A/G RATIO [facility] ([facility]) ID Date Data Source [id number] 09/27/2011 11:26:00 AM EDT [facility] ([facility] [id number] For Human Developmen t) Name Value Range Interpretation Description Data Sup porting Code Source(s) Document(s ) GLOBULIN, 3.7 g/dL GLOBULIN,CALCUL [facility] CALCULATE ATED ([facility]) ID Date Data Source [id number] 09/27/2011 11:26:00 AM EDT [facility] ([facility] [id number] For Human Developmen t) Name Value Range Interpretation Description Data Sup porting Code Source(s) Document(s ) Albumin 4.2 g/dL ALBUMIN [facility] [Mass/volume] ([place] in Blood by High View Bromocresol For Human purple (BCP) Development) dye binding method ID Date Data Source [id number] 09/27/2011 11:26:00 AM EDT [facility] ([facility] [id number] For Human Developmen t) Name Value Range Interpretation Code Description Data Supporting Source(s) Document(s ) PROTEIN,T 7.9 g/dL PROTEIN,TOTAL [facility] OTAL ([facility]) ID Date Data Source [id number] 09/27/2011 11:26:00 AM EDT [facility] ([facility] [id number] For Human Developmen t) Name Value Range Interpretation Description Data Sup porting Code Source(s) Document(s ) VALPROIC 68.9 mg/L VALPROIC [facility] ACID,TOTAL ACID,TOTAL ([facility]) ID Date Data Source [id number] 01/17/2011 07:20:00 AM EST [facility] ([facility] [id number] For Human Developmen t) Name Value Range Interpretation Description Data Sup porting Code Source(s) Document(s ) Potassium 4.2 POTASSIUM [facility] [Mass/volume] mmol/L ([facility]) ID Date Data Source [id number] 01/17/2011 07:20:00 AM EST [facility] ([facility] [id number] For Human Developmen t) Name Value Range Interpretation Description Data Sup porting Code Source(s) Document(s ) VALPROIC 90.0 mg/L VALPROIC [facility] ACID,TOTAL ACID,TOTAL ([facility]) ID Date Data Source [id number] 01/17/2011 07:20:00 AM EST [facility] ([facility] [id number] For Human Developmen t) Name Value Range Interpretation Description Data Sup porting Code Source(s) Document(s ) BASOPHILS 15 BASOPHILS,ABSOL [facility] ,ABSOLUTE Cells/mcL [place] ([facility]) ID Date Data Source [id number] 01/17/2011 07:20:00 AM EST [facility] ([facility] [id number] For Human Developmen t) Name Value Range Interpretation Description Data Sup porting Code Source(s) Document(s ) EOSINOPHI 36 EOSINOPHILS,ABS [facility] LS,ABSOLU Cells/mcL [place] ([facility]) ID Date Data Source [id number] 01/17/2011 07:20:00 AM EST [facility] ([facility] [id number] For Human Developmen t) Name Value Range Interpretation Description Data Sup porting Code Source(s) Document(s ) MONOCYTES 255 MONOCYTES,ABSOL [facility] ,ABSOLUTE Cells/mcL [place] ([facility]) ID Date Data Source [id number] 01/17/2011 07:20:00 AM EST [facility] ([facility] [id number] For Human Developmen t) Name Value Range Interpretation Description Data Sup porting Code Source(s) Document(s ) LYMPHOCYT 2270 LYMPHOCYTES,ABS [facility] ES,ABSOLU Cells/mcL [place] ([facility]) ID Date Data Source [id number] 01/17/2011 07:20:00 AM EST [facility] ([facility] [id number] For Human Developmen t) Name Value Range Interpretation Description Data Sup porting Code Source(s) Document(s ) NEUTROPHI 2525 NEUTROPHILS,ABS [facility] LS,ABSOLU Cells/mcL [place] ([facility]) ID Date Data Source [id number] 01/17/2011 07:20:00 AM EST C[facility] ([facility] [id number] [employer]) Name Value Range Interpretation Code Description Data Kathy rce(s) Supporting Document(s ) BASOPHILS, 0.3 % BASOPHILS,% CureMD % ([facility]) ID Date Data Source [id number] 01/17/2011 07:20:00 AM EST [facility] ([facility] [id number] [employer]) Name Value Range Interpretation Code Description Data Kathy rce(s) Supporting Document(s ) EOSINOPHIL 0.7 % EOSINOPHILS,% CureMD S,% ([facility]) ID Date Data Source [id number] 01/17/2011 07:20:00 AM EST [facility] ([facility] [id number] [employer]) Name Value Range Interpretation Code Description Data Kathy rce(s) Supporting Document(s ) MONOCYTES, 5.0 % MONOCYTES,% CureMD % ([facility]) ID Date Data Source [id number] 01/17/2011 07:20:00 AM EST [facility] ([facility] [id number] [employer]) Name Value Range Interpretation Code Description Data Supporting Source(s) Document(s ) TOTAL 44.5 % TOTAL [facility] LYMPHOCYTE LYMPHOCYTES,% ([facility],% [facility]) ID Date Data Source [id number] 01/17/2011 07:20:00 AM EST [facility] ([facility] [id number] [employer]) Name Value Range Interpretation Code Description Data Supporting Source(s) Document(s ) TOTAL 49.5 % TOTAL [facility] NEUTROPHIL NEUTROPHILS,% ([facility]) ID Date Data Source [id number] 01/17/2011 07:20:00 AM EST [facility] ([facility] [id number] [employer]) Name Value Range Interpretation Code Description Data Kathy rce(s) Supporting Document(s ) MPV 10.9 fL MPV [facility] ([facility]) ID Date Data Source [id number] 01/17/2011 07:20:00 AM EST [facility] ([facility] [id number] [employer]) Name Value Range Interpretation Description Data Sup porting Code Source(s) Document(s ) PLATELET 173 PLATELET COUNT C[facility] COUNT Thous/mcL ([facility]) ID Date Data Source [id number] 01/17/2011 07:20:00 AM EST [facility] ([facility] [id number] [employer]) Name Value Range Interpretation Code Description Data Kathy rce(s) Supporting Document(s ) RDW 12.6 % RDW [facility] ([facility]) ID Date Data Source [id number] 01/17/2011 07:20:00 AM EST [facility] ([facility] [id number] [employer]) Name Value Range Interpretation Code Description Data Kathy rce(s) Supporting Document(s ) MCHC 33.8 g/dL MCHC [facility] ([facility]) ID Date Data Source [id number] 01/17/2011 07:20:00 AM EST [facility] ([facility] [id number] [employer]) Name Value Range Interpretation Code Description Data Kathy rce(s) Supporting Document(s ) MCH 32.8 pg MCH [facility] ([facility]) ID Date Data Source [id number] 01/17/2011 07:20:00 AM EST [facility] ([facility] [id number] [employer]) Name Value Range Interpretation Code Description Data Kathy rce(s) Supporting Document(s ) MCV 97.0 fL MCV [facility] ([facility]) ID Date Data Source [id number] 01/17/2011 07:20:00 AM EST [facility] ([facility] [id number] [employer]) Name Value Range Interpretation Description Data Sup porting Code Source(s) Document(s ) Hematocrit 43.6 % HEMATOCRIT [facility] [Pure volume ([facility]] of [place] For Blood by Human [employer] Development) count ID Date Data Source [id number] 01/17/2011 07:20:00 AM EST [facility] ([facility] [id number] [employer]) Name Value Range Interpretation Description Data Sup porting Code Source(s) Document(s ) Hemoglobin 14.7 g/dL HEMOGLOBIN [facility] [Mass/volume] ([place] in [facility] High View venous blood For Human by [employer]) ID Date Data Source [id number] 01/17/2011 07:20:00 AM EST [facility] ([facility] [id number] [employer]) Name Value Range Interpretation Code Description Data Kathy rce(s) Supporting Document(s ) RBC 4.50 RBC [facility] Mill/mcL ([place] [facility] [employer]) ID Date Data Source [id number] 01/17/2011 07:20:00 AM EST [facility] ([facility] [id number] [employer]) Name Value Range Interpretation Code Description Data Kathy rce(s) Supporting Document(s ) WBC 5.1 WBC [facility]/mcL ([facility]) ID Date Data Source [id number] 01/17/2011 07:20:00 AM EST [facility] ([facility] [id number] [employer]) Name Value Range Interpretation Description Data Sup porting Code Source(s) Document(s ) EGFR 152 EGFR C[facility] THAI mL/min/1. THAI ([address]) ID Date Data Source [id number] 01/17/2011 07:20:00 AM EST [facility] ([facility] [id number] [employer]) Name Value Range Interpretation Description Data Sup porting Code Source(s) Document(s ) EGFR NON AFR 131 EGFR NON AFR [facility] THAI mL/min/1. THAI ([address]) ID Date Data Source [id number] 01/17/2011 07:20:00 AM EST [facility] ([facility] [id number] [employer]) Name Value Range Interpretation Code Description Data Kathy rce(s) Supporting Document(s ) ALT 14 U/L ALT [facility] ([facility]) ID Date Data Source [id number] 01/17/2011 07:20:00 AM EST [facility] ([facility] [id number] [employer]) Name Value Range Interpretation Code Description Data Kathy rce(s) Supporting Document(s ) AST 18 U/L AST [facility] ([facility]) ID Date Data Source [id number] 01/17/2011 07:20:00 AM EST [facility] ([facility] [id number] [employer]) Name Value Range Interpretation Description Data Sup porting Code Source(s) Document(s ) Alkaline 57 U/L ALKALINE C[facility]MD phosphatase PHOSPHATASE ([place] [Enzymatic High View activity/volume For Human ] in Serum, Development) Plasma or Blood ID Date Data Source [id number] 01/17/2011 07:20:00 AM EST [facility] ([facility] [id number] [employer]) Name Value Range Interpretation Description Data Sup porting Code Source(s) Document(s ) BILIRUBIN 0.4 mg/dL BILIRUBIN,TOTAL [facility] ,TOTAL ([facility]) ID Date Data Source [id number] 01/17/2011 07:20:00 AM EST [facility] ([facility] [id number] [employer]) Name Value Range Interpretation Code Description Data Kathy rce(s) Supporting Document(s ) A/G RATIO 1.2 A/G RATIO [facility] ([facility]) ID Date Data Source [id number] 01/17/2011 07:20:00 AM EST [facility] ([facility] [id number] [employer]) Name Value Range Interpretation Description Data Sup porting Code Source(s) Document(s ) GLOBULIN, 3.8 g/dL GLOBULIN,CALCUL [facility] CALCULATE ATED ([facility]) ID Date Data Source [id number] 01/17/2011 07:20:00 AM EST [facility] ([facility] [id number] For [employer] t) Name Value Range Interpretation Description Data Sup porting Code Source(s) Document(s ) Albumin 4.4 g/dL ALBUMIN [facility] [Mass/volume] ([place] in Blood by High View Bromocresol For Human purple (BCP) Development) dye binding method ID Date Data Source [id number] 01/17/2011 07:20:00 AM EST [facility] ([facility] [id number] [employer]) Name Value Range Interpretation Code Description Data Supporting Source(s) Document(s ) PROTEIN,T 8.2 g/dL PROTEIN,TOTAL CureMD OTAL ([facility]) ID Date Data Source [id number] 01/17/2011 07:20:00 AM EST [facility] ([facility] [id number] [employer]) Name Value Range Interpretation Description Data Sup porting Code Source(s) Document(s ) Calcium 9.9 mg/dL CALCIUM C[facility] [Moles/volume] ([place] in Urine High View collected for For Human unspecified Development) duration ID Date Data Source [id number] 01/17/2011 07:20:00 AM EST [facility] ([facility] [id number] [employer]) Name Value Range Interpretation Code Description Data Supporting Source(s) Document(s ) BUN/CREATI 22 BUN/CREATININE [facility] NINE RATIO RATIO ([facility]) ID Date Data Source [id number] 01/17/2011 07:20:00 AM EST [facility] ([facility] [id number] [employer]) Name Value Range Interpretation Description Data Sup porting Code Source(s) Document(s ) Creatinine 0.58 CREATININE C[facility]MD [Moles/volume] mg/dL ([facility] Vitreous High View fluid For Human Development) ID Date Data Source [id number] 01/17/2011 07:20:00 AM EST C[facility] ([facility] [id number] [employer] t) Name Value Range Interpretation Description Data Sup porting Code Source(s) Document(s ) Urea 13 mg/dL UREA NITROGEN CureMD nitrogen ([place]volum High [place] e] in Blood For Human Development) ID Date Data Source [id number] 01/17/2011 07:20:00 AM EST [facility] ([facility] [id number] [employer] t) Name Value Range Interpretation Description Data Sup porting Code Source(s) Document(s ) Carbon 22 mmol/L CARBON DIOXIDE CureMD dioxide ([place] [VFr/PPres] High View in Gas For Human delivery Development) system ID Date Data Source [id number] 01/17/2011 07:20:00 AM EST [facility] ([facility] [id number] [employer] t) Name Value Range Interpretation Description Data Sup porting Code Source(s) Document(s ) Chloride 103 CHLORIDE CureMD [Moles/volum mmol/L ([facility]] in Serum, High View For Plasma or Human Blood Development) ID Date Data Source [id number] 01/17/2011 07:20:00 AM EST [facility] ([facility] [id number] [employer] t) Name Value Range Interpretation Description Data Sup porting Code Source(s) Document(s ) Potassium 4.2 POTASSIUM CureMD [Mass/volume] mmol/L ([facility] Blood High [facility] [employer]) ID Date Data Source [id number] 01/17/2011 07:20:00 AM EST C[facility] ([facility] [id number] For Human [employer] t) Name Value Range Interpretation Description Data Sup porting Code Source(s) Document(s ) Sodium 140 mmol/L SODIUM Cure[facility] [Moles/volu ([place] me] in High View For Serum, Human Plasma or Development) Blood ID Date Data Source [id number] 01/17/2011 07:20:00 AM EST [facility] ([facility] [id number] [employer]) Name Value Range Interpretation Description Data Sup porting Code Source(s) Document(s ) Glucose 71 mg/dL GLUCOSE CureMD [Moles/volum ([place] e] in Serum, High View For Plasma or Human Blood Development) ID Date Data Source [id number] 01/17/2011 07:20:00 AM EST [facility] ([facility] [id number] [employer]) Name Value Range Interpretation Description Data Sup porting Code Source(s) Document(s ) VALPROIC 90.0 mg/L VALPROIC [facility] ACID,TOTAL ACID,TOTAL ([facility]) ID Date Data Source [id number] 01/17/2011 07:20:00 AM EST [facility] ([facility] [id number] [employer]) Name Value Range Interpretation Description Data Sup porting Code Source(s) Document(s ) BASOPHILS 15 BASOPHILS,ABSOL Cure[facility] ,ABSOLUTE Cells/mcL [place] ([facility]) ID Date Data Source [id number] 01/17/2011 07:20:00 AM EST [facility] ([facility] [id number] [employer] t) Name Value Range Interpretation Description Data Sup porting Code Source(s) Document(s ) EOSINOPHI 36 EOSINOPHILS,ABS CureMD LS,ABSOLU Cells/mcL [place] ([facility]) ID Date Data Source [id number] 01/17/2011 07:20:00 AM EST C[facility] ([facility] [id number] [employer]) Name Value Range Interpretation Description Data Sup porting Code Source(s) Document(s ) MONOCYTES 255 MONOCYTES,ABSOL Cure[facility] ,ABSOLUTE Cells/mcL [place] ([facility]) ID Date Data Source [id number] 01/17/2011 07:20:00 AM EST [facility] ([facility] [id number] [employer]) Name Value Range Interpretation Description Data Sup porting Code Source(s) Document(s ) LYMPHOCYT 2270 LYMPHOCYTES,ABS CureMD ES,ABSOLU Cells/mcL [place] ([facility]) ID Date Data Source [id number] 01/17/2011 07:20:00 AM EST [facility] ([facility] [id number] [employer] t) Name Value Range Interpretation Description Data Sup porting Code Source(s) Document(s ) NEUTROPHI 2525 NEUTROPHILS,ABS CureMD LS,ABSOLU Cells/mcL [place] ([facility]) ID Date Data Source [id number] 01/17/2011 07:20:00 AM EST [facility] ([facility] [id number] [employer]) Name Value Range Interpretation Code Description Data Kathy rce(s) Supporting Document(s ) BASOPHILS, 0.3 % BASOPHILS,% CureMD % ([facility]) ID Date Data Source [id number] 01/17/2011 07:20:00 AM EST [facility] ([facility] [id number] For [employer]) Name Value Range Interpretation Code Description Data Kathy rce(s) Supporting Document(s ) EOSINOPHIL 0.7 % EOSINOPHILS,% CureMD S,% ([facility]) ID Date Data Source [id number] 01/17/2011 07:20:00 AM EST [facility] ([facility] [id number] For [employer]men t) Name Value Range Interpretation Code Description Data Kathy rce(s) Supporting Document(s ) MONOCYTES, 5.0 % MONOCYTES,% CureMD % ([facility]) ID Date Data Source [id number] 01/17/2011 07:20:00 AM EST [facility] ([facility] [id number] For Human [employer]men t) Name Value Range Interpretation Code Description Data Supporting Source(s) Document(s ) TOTAL 44.5 % TOTAL [facility] LYMPHOCYTE LYMPHOCYTES,% ([facility],% [facility]) ID Date Data Source [id number] 01/17/2011 07:20:00 AM EST [facility] ([facility] [id number] For [employer]men t) Name Value Range Interpretation Code Description Data Supporting Source(s) Document(s ) TOTAL 49.5 % TOTAL [facility] NEUTROPHIL NEUTROPHILS,% ([facility],% [facility] [employer]) ID Date Data Source [id number] 01/17/2011 07:20:00 AM EST [facility] ([facility] [id number] For Human [employer] t) Name Value Range Interpretation Code Description Data Kathy rce(s) Supporting Document(s ) MPV 10.9 fL MPV [facility] ([facility]) ID Date Data Source [id number] 01/17/2011 07:20:00 AM EST [facility] ([facility] [id number] For Human [employer]men t) Name Value Range Interpretation Description Data Sup porting Code Source(s) Document(s ) PLATELET 173 PLATELET COUNT [facility] COUNT Thous/mcL ([facility]) ID Date Data Source [id number] 01/17/2011 07:20:00 AM EST [facility] ([facility] [id number] For Human [employer]men t) Name Value Range Interpretation Code Description Data Kathy rce(s) Supporting Document(s ) RDW 12.6 % RDW [facility] ([facility]) ID Date Data Source [id number] 01/17/2011 07:20:00 AM EST [facility] ([facility] [id number] For Human [employer]men t) Name Value Range Interpretation Code Description Data Kathy rce(s) Supporting Document(s ) MCHC 33.8 g/dL MCHC [facility] ([facility]) ID Date Data Source [id number] 01/17/2011 07:20:00 AM EST [facility] ([facility] [id number] For Human [employer]men t) Name Value Range Interpretation Code Description Data Kathy rce(s) Supporting Document(s ) MCH 32.8 pg MCH [facility] ([facility]) ID Date Data Source [id number] 01/17/2011 07:20:00 AM EST [facility] ([facility] [id number] For [employer]men t) Name Value Range Interpretation Code Description Data Kathy rce(s) Supporting Document(s ) MCV 97.0 fL MCV [facility] ([facility]) ID Date Data Source [id number] 01/17/2011 07:20:00 AM EST [facility] ([facility] [id number] For Human [employer]men t) Name Value Range Interpretation Description Data Sup porting Code Source(s) Document(s ) Hematocrit 43.6 % HEMATOCRIT [facility] [Pure volume ([facility]] of High [place] For Blood by Human Automated Development) count ID Date Data Source [id number] 01/17/2011 07:20:00 AM EST [facility] ([facility] [id number] For Human [employer]men t) Name Value Range Interpretation Description Data Sup porting Code Source(s) Document(s ) Hemoglobin 14.7 g/dL HEMOGLOBIN [facility] [Mass/volume] ([facility] venous blood For Human by [employer] Development) ID Date Data Source [id number] 01/17/2011 07:20:00 AM EST [facility] ([facility] [id number] For Human [employer]men t) Name Value Range Interpretation Code Description Data Kathy rce(s) Supporting Document(s ) RBC 4.50 RBC [facility] Mill/mcL ([facility]) ID Date Data Source [id number] 01/17/2011 07:20:00 AM EST [facility] ([facility] [id number] For Human Developmen t) Name Value Range Interpretation Code Description Data Kathy rce(s) Supporting Document(s ) WBC 5.1 WBC [facility] Thous/mcL ([facility]) ID Date Data Source [id number] 01/17/2011 07:20:00 AM EST [facility] ([facility] [id number] For Human [employer]men t) Name Value Range Interpretation Description Data Sup porting Code Source(s) Document(s ) EGFR 152 EGFR CureMD THAI mL/min/1. THAI ([place] [address]) ID Date Data Source [id number] 01/17/2011 07:20:00 AM EST [facility] ([facility] [id number] For Human Developmen t) Name Value Range Interpretation Description Data Sup porting Code Source(s) Document(s ) EGFR NON AFR 131 EGFR NON AFR C[facility] THAI mL/min/1. THAI ([address]) ID Date Data Source [id number] 01/17/2011 07:20:00 AM EST [facility] ([facility] [id number] For Human Developmen t) Name Value Range Interpretation Code Description Data Kathy rce(s) Supporting Document(s ) ALT 14 U/L ALT [facility] ([facility]) ID Date Data Source [id number] 01/17/2011 07:20:00 AM EST [facility] ([facility] [id number] For Human Developmen t) Name Value Range Interpretation Code Description Data Kathy rce(s) Supporting Document(s ) AST 18 U/L AST [facility] ([facility]) ID Date Data Source [id number] 01/17/2011 07:20:00 AM EST [facility] ([facility] [id number] For Human Developmen t) Name Value Range Interpretation Description Data Sup porting Code Source(s) Document(s ) Alkaline 57 U/L ALKALINE CureMD phosphatase PHOSPHATASE ([place] [Enzymatic High View activity/volume For Human ] in Serum, Development) Plasma or Blood ID Date Data Source [id number] 01/17/2011 07:20:00 AM EST [facility] ([facility] [id number] For Human Developmen t) Name Value Range Interpretation Description Data Sup porting Code Source(s) Document(s ) BILIRUBIN 0.4 mg/dL BILIRUBIN,TOTAL [facility] ,TOTAL ([facility]) ID Date Data Source [id number] 01/17/2011 07:20:00 AM EST [facility] ([facility] [id number] For Human Developmen t) Name Value Range Interpretation Code Description Data Kathy rce(s) Supporting Document(s ) A/G RATIO 1.2 A/G RATIO [facility] ([facility]) ID Date Data Source [id number] 01/17/2011 07:20:00 AM EST [facility] ([facility] [id number] For Human Developmen t) Name Value Range Interpretation Description Data Sup porting Code Source(s) Document(s ) GLOBULIN, 3.8 g/dL GLOBULIN,CALCUL [facility] CALCULATE ATED ([facility] For Human Development) ID Date Data Source [id number] 01/17/2011 07:20:00 AM EST Cure[facility] ([facility] [id number] For Human Developmen t) Name Value Range Interpretation Description Data Sup porting Code Source(s) Document(s ) Albumin 4.4 g/dL ALBUMIN [facility] [Mass/volume] ([facility] Blood by High View Bromocresol For Human purple (BCP) Development) dye binding method ID Date Data Source [id number] 01/17/2011 07:20:00 AM EST [facility] ([facility] [id number] For Human Developmen t) Name Value Range Interpretation Code Description Data Supporting Source(s) Document(s ) PROTEIN,T 8.2 g/dL PROTEIN,TOTAL CureMD OTAL ([facility]) ID Date Data Source [id number] 01/17/2011 07:20:00 AM EST C[facility] ([facility] [id number] For Human Developmen t) Name Value Range Interpretation Description Data Sup porting Code Source(s) Document(s ) Calcium 9.9 mg/dL CALCIUM [facility] [Moles/volume] ([place] in Urine High View collected for For Human unspecified Development) duration ID Date Data Source [id number] 01/17/2011 07:20:00 AM EST [facility] ([facility] [id number] For Human Developmen t) Name Value Range Interpretation Code Description Data Supporting Source(s) Document(s ) BUN/CREATI 22 BUN/CREATININE C[facility] NINE RATIO RATIO ([facility]) ID Date Data Source [id number] 01/17/2011 07:20:00 AM EST [facility] ([facility] [id number] For Human Developmen t) Name Value Range Interpretation Description Data Sup porting Code Source(s) Document(s ) Creatinine 0.58 CREATININE [facility] [Moles/volume] mg/dL ([place] in Vitreous High View fluid For Human Development) ID Date Data Source [id number] 01/17/2011 07:20:00 AM EST [facility] ([facility] [id number] For Human Developmen t) Name Value Range Interpretation Description Data Sup porting Code Source(s) Document(s ) Urea 13 mg/dL UREA NITROGEN [facility] nitrogen ([place]volum High [place] e] in Blood For Human Development) ID Date Data Source [id number] 01/17/2011 07:20:00 AM EST [facility] ([facility] [id number] For Human Developmen t) Name Value Range Interpretation Description Data Sup porting Code Source(s) Document(s ) Carbon 22 mmol/L CARBON DIOXIDE CureMD dioxide ([place] [facility] High [facility] in Gas For Human delivery Development) system ID Date Data Source [id number] 01/17/2011 07:20:00 AM EST C[facility] ([facility] [id number] For Human Developmen t) Name Value Range Interpretation Description Data Sup porting Code Source(s) Document(s ) Chloride 103 CHLORIDE Cure[facility] [Moles/volum mmol/L ([place] e] in Serum, High View For Plasma or Human Blood Development) ID Date Data Source [id number] 01/17/2011 07:20:00 AM EST [facility] ([facility] [id number] For Human Developmen t) Name Value Range Interpretation Description Data Sup porting Code Source(s) Document(s ) Potassium 4.2 POTASSIUM Cure[facility] [Mass/volume] mmol/L ([place] in Blood High View For Human Development) ID Date Data Source [id number] 01/17/2011 07:20:00 AM EST Cure[facility] ([facility] [id number] For Human Developmen t) Name Value Range Interpretation Description Data Sup porting Code Source(s) Document(s ) Sodium 140 mmol/L SODIUM Cure[facility] [Moles/volu ([facility]] in [place] For Serum, Human Plasma or Development) Blood ID Date Data Source [id number] 01/17/2011 07:20:00 AM EST C[facility] ([facility] [id number] For Human Developmen t) Name Value Range Interpretation Description Data Sup porting Code Source(s) Document(s ) Glucose 71 mg/dL GLUCOSE Cure[facility] [Moles/volum ([place]] in Serum, High View For Plasma or Human Blood Development) ID Date Data Source [id number] 01/17/2011 07:20:00 AM EST [facility] ([facility] [id number] For Human Developmen t) Name Value Range Interpretation Description Data Sup porting Code Source(s) Document(s ) Sodium 140 mmol/L SODIUM [facility] [Moles/volu ([facility]] in [place] For Serum, Human Plasma or Development) Blood ID Date Data Source [id number] 01/17/2011 07:20:00 AM EST [facility] ([facility] [id number] For Human Developmen t) Name Value Range Interpretation Description Data Sup porting Code Source(s) Document(s ) Carbon 22 mmol/L CARBON DIOXIDE CureMD dioxide ([place] [[facility]] High View in Gas For Human delivery Development) system ID Date Data Source [id number] 01/17/2011 07:20:00 AM EST [facility] ([facility] [id number] For Human Developmen t) Name Value Range Interpretation Description Data Sup porting Code Source(s) Document(s ) Chloride 103 CHLORIDE CureMD [Moles/volum mmol/L ([place] e] in Serum, High View For Plasma or Human Blood Development) ID Date Data Source [id number] 01/17/2011 07:20:00 AM EST [facility] ([facility] [id number] For Human Developmen t) Name Value Range Interpretation Description Data Sup porting Code Source(s) Document(s ) Creatinine 0.58 CREATININE CureMD [Moles/volume] mg/dL ([place] in Vitreous High View fluid For Human Development) ID Date Data Source [id number] 01/17/2011 07:20:00 AM EST [facility] ([facility] [id number] For Human Developmen t) Name Value Range Interpretation Description Data Sup porting Code Source(s) Document(s ) Urea 13 mg/dL UREA NITROGEN CureMD nitrogen ([place] [Moles/volum High View e] in Blood For Human Development) ID Date Data Source [id number] 01/17/2011 07:20:00 AM EST [facility] ([facility] [id number] For Human Developmen t) Name Value Range Interpretation Description Data Sup porting Code Source(s) Document(s ) Albumin 4.4 g/dL ALBUMIN [facility]ure[facility] [Mass/volume] ([facility] Blood by High View Bromocresol For Human purple (BCP) Development) dye binding method ID Date Data Source [id number] 01/17/2011 07:20:00 AM EST [facility] ([facility] [id number] For Human Developmen t) Name Value Range Interpretation Code Description Data Supporting Source(s) Document(s ) PROTEIN,T 8.2 g/dL PROTEIN,TOTAL CureMD OTAL ([facility]) ID Date Data Source [id number] 01/17/2011 07:20:00 AM EST C[facility] ([facility] [id number] For Human Developmen t) Name Value Range Interpretation Code Description Data Kathy rce(s) Supporting Document(s ) A/G RATIO 1.2 A/G RATIO [facility] ([facility]) ID Date Data Source [id number] 01/17/2011 07:20:00 AM EST [facility] ([facility] [id number] For Human Developmen t) Name Value Range Interpretation Description Data Sup porting Code Source(s) Document(s ) GLOBULIN, 3.8 g/dL GLOBULIN,CALCUL C[facility] CALCULATE ATED ([facility]) ID Date Data Source [id number] 01/17/2011 07:20:00 AM EST Cure[facility] ([facility] [id number] For Human Developmen t) Name Value Range Interpretation Description Data Sup porting Code Source(s) Document(s ) Alkaline 57 U/L ALKALINE C[facility] phosphatase PHOSPHATASE ([place] [Enzymatic High View activity/volume For Human ] in Serum, Development) Plasma or Blood ID Date Data Source [id number] 01/17/2011 07:20:00 AM EST [facility] ([facility] [id number] For Human Developmen t) Name Value Range Interpretation Description Data Sup porting Code Source(s) Document(s ) BILIRUBIN 0.4 mg/dL BILIRUBIN,TOTAL Cure[facility] ,TOTAL ([facility]) ID Date Data Source [id number] 01/17/2011 07:20:00 AM EST [facility] ([facility] [id number] For Human Developmen t) Name Value Range Interpretation Code Description Data Kathy rce(s) Supporting Document(s ) ALT 14 U/L ALT [facility] ([facility]) ID Date Data Source [id number] 01/17/2011 07:20:00 AM EST [facility] ([facility] [id number] For Human Developmen t) Name Value Range Interpretation Code Description Data Kathy rce(s) Supporting Document(s ) AST 18 U/L AST [facility] ([facility]) ID Date Data Source [id number] 01/17/2011 07:20:00 AM EST [facility] ([facility] [id number] For Human Developmen t) Name Value Range Interpretation Description Data Sup porting Code Source(s) Document(s ) EGFR 152 EGFR CureMD THAI mL/min/1. THAI ([address]) ID Date Data Source [id number] 01/17/2011 07:20:00 AM EST [facility] ([facility] [id number] For Human Developmen t) Name Value Range Interpretation Description Data Sup porting Code Source(s) Document(s ) EGFR NON AFR 131 EGFR NON AFR C[facility] THAI mL/min/1. THAI ([place] [address]) ID Date Data Source [id number] 01/17/2011 07:20:00 AM EST [facility] ([facility] [id number] For Human Developmen t) Name Value Range Interpretation Code Description Data Kathy rce(s) Supporting Document(s ) MCH 32.8 pg MCH [facility] ([facility]) ID Date Data Source [id number] 01/17/2011 07:20:00 AM EST [facility] ([facility] [id number] For Human Developmen t) Name Value Range Interpretation Code Description Data Kathy rce(s) Supporting Document(s ) MCV 97.0 fL MCV [facility] ([facility]) ID Date Data Source [id number] 01/17/2011 07:20:00 AM EST [facility] ([facility] [id number] For Human Developmen t) Name Value Range Interpretation Description Data Sup porting Code Source(s) Document(s ) Hematocrit 43.6 % HEMATOCRIT CureMD [Pure volume ([facility]] of High [facility] For Blood by Human Automated Development) count ID Date Data Source [id number] 01/17/2011 07:20:00 AM EST [facility] ([facility] [id number] For Human Developmen t) Name Value Range Interpretation Description Data Sup porting Code Source(s) Document(s ) Hemoglobin 14.7 g/dL HEMOGLOBIN [facility] [Mass/volume] ([facility] venous blood For Human by Oximetry Development) ID Date Data Source [id number] 01/17/2011 07:20:00 AM EST [facility] ([facility] [id number] For Human Developmen t) Name Value Range Interpretation Code Description Data Kathy rce(s) Supporting Document(s ) RBC 4.50 RBC Cure[facility] Mill/mcL ([facility]) ID Date Data Source [id number] 01/17/2011 07:20:00 AM EST [facility] ([facility] [id number] For Human Developmen t) Name Value Range Interpretation Description Data Sup porting Code Source(s) Document(s ) Calcium 9.9 mg/dL CALCIUM [facility] [Moles/volume] ([place] in Urine High View collected for For Human unspecified Development) duration ID Date Data Source [id number] 01/17/2011 07:20:00 AM EST C[facility] ([facility] [id number] For Human Developmen t) Name Value Range Interpretation Code Description Data Supporting Source(s) Document(s ) BUN/CREATI 22 BUN/CREATININE [facility] NINE RATIO RATIO ([facility]) ID Date Data Source [id number] 01/17/2011 07:20:00 AM EST [facility] ([facility] [id number] For Human Developmen t) Name Value Range Interpretation Code Description Data Kathy rce(s) Supporting Document(s ) WBC 5.1 WBC [facility] Thous/mcL ([facility]) ID Date Data Source [id number] 01/17/2011 07:20:00 AM EST [facility] ([facility] [id number] For Human Developmen t) Name Value Range Interpretation Description Data Sup porting Code Source(s) Document(s ) Glucose 71 mg/dL GLUCOSE [facility] [Moles/volum ([facility]] in Serum, High [place] For Plasma or Human Blood Development) ID Date Data Source [id number] 01/17/2011 07:20:00 AM EST C[facility] ([facility] [id number] For Human Developmen t) Name Value Range Interpretation Code Description Data Kathy rce(s) Supporting Document(s ) MONOCYTES, 5.0 % MONOCYTES,% Cure[facility] % ([facility]) ID Date Data Source [id number] 01/17/2011 07:20:00 AM EST [facility] ([facility] [id number] For Human Developmen t) Name Value Range Interpretation Code Description Data Kathy rce(s) Supporting Document(s ) EOSINOPHIL 0.7 % EOSINOPHILS,% CureMD S,% ([facility]) ID Date Data Source [id number] 01/17/2011 07:20:00 AM EST [facility] ([facility] [id number] For Human Developmen t) Name Value Range Interpretation Code Description Data Supporting Source(s) Document(s ) TOTAL 49.5 % TOTAL [facility] NEUTROPHIL NEUTROPHILS,% ([facility],% [facility]) ID Date Data Source [id number] 01/17/2011 07:20:00 AM EST C[facility] ([facility] [id number] For Human Developmen t) Name Value Range Interpretation Code Description Data Supporting Source(s) Document(s ) TOTAL 44.5 % TOTAL [facility] LYMPHOCYTE LYMPHOCYTES,% ([facility],% [facility]) ID Date Data Source [id number] 01/17/2011 07:20:00 AM EST [facility] ([facility] [id number] For Human Developmen t) Name Value Range Interpretation Code Description Data Kathy rce(s) Supporting Document(s ) MPV 10.9 fL MPV [facility] ([facility]) ID Date Data Source [id number] 01/17/2011 07:20:00 AM EST [facility] ([facility] [id number] For Human Developmen t) Name Value Range Interpretation Description Data Sup porting Code Source(s) Document(s ) PLATELET 173 PLATELET COUNT [facility] COUNT Thous/mcL ([facility]) ID Date Data Source [id number] 01/17/2011 07:20:00 AM EST [facility] ([facility] [id number] For Human Developmen t) Name Value Range Interpretation Code Description Data Kathy rce(s) Supporting Document(s ) MCHC 33.8 g/dL MCHC [facility] ([facility]) ID Date Data Source [id number] 01/17/2011 07:20:00 AM EST [facility] ([facility] [id number] For Human Developmen t) Name Value Range Interpretation Code Description Data Kathy rce(s) Supporting Document(s ) RDW 12.6 % RDW [facility] ([facility]) ID Date Data Source [id number] 01/17/2011 07:20:00 AM EST [facility] ([facility] [id number] For Human Developmen t) Name Value Range Interpretation Description Data Sup porting Code Source(s) Document(s ) NEUTROPHI 2525 NEUTROPHILS,ABS CureMD LS,ABSOLU Cells/mcL [place] ([facility]) ID Date Data Source [id number] 01/17/2011 07:20:00 AM EST [facility] ([facility] [id number] For Human Developmen t) Name Value Range Interpretation Code Description Data Kathy rce(s) Supporting Document(s ) BASOPHILS, 0.3 % BASOPHILS,% [facility]ureMD % ([facility]) ID Date Data Source [id number] 01/17/2011 07:20:00 AM EST [facility] ([facility] [id number] For Human Developmen t) Name Value Range Interpretation Description Data Sup porting Code Source(s) Document(s ) LYMPHOCYT 2270 LYMPHOCYTES,ABS CureMD ES,ABSOLU Cells/mcL [place] ([facility]) ID Date Data Source [id number] 01/17/2011 07:20:00 AM EST [facility] ([facility] [id number] For Human Developmen t) Name Value Range Interpretation Description Data Sup porting Code Source(s) Document(s ) EOSINOPHI 36 EOSINOPHILS,ABS CureMD LS,ABSOLU Cells/mcL [place] ([facility]) ID Date Data Source [id number] 01/17/2011 07:20:00 AM EST [facility] ([facility] [id number] For Human Developmen t) Name Value Range Interpretation Description Data Sup porting Code Source(s) Document(s ) MONOCYTES 255 MONOCYTES,ABSOL CureMD ,ABSOLUTE Cells/mcL [place] ([facility]) ID Date Data Source [id number] 01/17/2011 07:20:00 AM EST [facility] ([facility] [id number] For Human Developmen t) Name Value Range Interpretation Description Data Sup porting Code Source(s) Document(s ) BASOPHILS 15 BASOPHILS,ABSOL Cure[facility] ,ABSOLUTE Cells/mcL [place] ([facility]) ID Date Data Source [id number] 01/17/2011 07:20:00 AM EST [facility] ([facility] [id number] For Human Developmen t) Name Value Range Interpretation Description Data Sup porting Code Source(s) Document(s ) VALPROIC 90.0 mg/L VALPROIC [facility] ACID,TOTAL ACID,TOTAL ([facility]) Procedure Social History Code Duration Value Status Description Data Source(s ) Smoking 11/19/2016 12:00:00 Never smoker completed Never smoker C ureMD ([facility]) Smoking 11/19/2016 12:00:00 Never smoker completed Never smoker C ureMD ([facility]) Smoking 11/19/2016 12:00:00 Never smoker completed Never smoker C ureMD ([facility]) Vital Signs ID Date Data Source [id number] Name Value Range Interpretation Code Description Data Source(s) Heart rate 101 /min 101 /min [facility] ([facility]) Diastolic blood 78 mm[Hg] 78 mm[Hg] [facility] pressure ([facility]) Systolic blood 129 mm[Hg] 129 mm[Hg] [facility] pressure ([facility]) Body weight 43.00 kg 43.00 kg [facility] Measured ([facility]) Body height 162 cm 162 cm [facility] ([facility]) Body mass index 16.65 kg/m^2 16.65 kg/m^2 CureM D (BMI) [Ratio] ([facility]) Heart rate 97 /min 97 /min [facility] ([facility]) Diastolic blood 87 mm[Hg] 87 mm[Hg] [facility] pressure ([facility]) Systolic blood 124 mm[Hg] 124 mm[Hg] [facility] pressure ([facility]) Body weight 43.00 kg 43.00 kg [facility] Measured ([facility] [facility]) Body height 162 cm 162 cm Cure[facility] ([facility]) Body mass index 16.65 kg/m^2 16.65 kg/m^2 CureM D (BMI) [Ratio] ([facility] [employer]) Heart rate 91 /min 91 /min C[facility] ([facility] [employer]) Diastolic blood 88 mm[Hg] 88 mm[Hg] [facility]ureMD pressure ([facility] [employer]) Systolic blood 124 mm[Hg] 124 mm[Hg] [facility]MD pressure ([facility] [employer]) Body weight 43.00 kg 43.00 kg Cure[facility] Measured ([facility] [employer] [facility]) Body height 162 cm 162 cm C[facility] ([facility]) Body mass index 16.65 kg/m^2 16.65 kg/m^2 CureM D (BMI) [Ratio] ([facility] [employer]) Patient Treatment Plan of Care Planned Activity Planned Date Details Description Data Source (s) Carbamazepine 20 MG/ML 07/08/2019 12:00:00 CureMD ([place] Oral Suspension [Tegretol] AM EDT I [facility] For [facility]) Carbamazepine 20 MG/ML 07/08/2019 12:00:00 CureMD ([place] Oral Suspension [Tegretol] AM EDT I [facility] For [facility]) Zolpidem tartrate 10 MG 02/16/2019 12:00:00 CureMD ([place] Oral Tablet AM [facility]) Zolpidem tartrate 10 MG 02/16/2019 12:00:00 CureMD ([place] Oral Tablet AM EST [facility] For H uman Development) tizanidine 2 MG Oral 10/14/2018 12:00:00 CureMD ([place] Capsule [Zanaflex] AM [facility] For Human Development) tizanidine 2 MG Oral 10/14/2018 12:00:00 CureMD ([place] Capsule [Zanaflex] AM [facility] For Human Development) tizanidine 2 MG Oral 10/14/2018 12:00:00 CureMD ([place] Capsule [Zanaflex] AM [facility] For Human Development) Carbamazepine 20 MG/ML 10/14/2018 12:00:00 CureMD ([place] Oral Suspension [Tegretol] AM EDT I [facility] Human Development) Carbamazepine 20 MG/ML 04/22/2018 12:00:00 CureMD ([place] Oral Suspension [Tegretol] AM EDT I [facility] Human Development) Glycopyrrolate 1 MG Oral 12/15/2013 12:00:00 CureMD ([place] Tablet [Robinul] AM EST [facility] F or Human Development) Baclofen 20 MG Oral Tablet 12/15/2013 12:00:00 CureMD ([place] AM EST [facility] For H uman Development) Glycopyrrolate 1 MG Oral 12/15/2013 12:00:00 CureMD ([place] Tablet [Robinul] AM EST [facility] F or Human Development) Baclofen 20 MG Oral Tablet 12/15/2013 12:00:00 CureMD ([place] AM EST [facility] For H uman Development) Glycopyrrolate 1 MG Oral 12/15/2013 12:00:00 CureMD ([place] Tablet [Robinul] AM EST [facility] F or Human Development) Baclofen 20 MG Oral Tablet 12/15/2013 12:00:00 CureMD ([place] AM EST [facility] For H uman Development) Baclofen 20 MG Oral Tablet 12/15/2013 12:00:00 CureMD ([facility] EST [facility] For H uman Development) Glycopyrrolate 1 MG Oral 12/15/2013 12:00:00 CureMD ([place] Tablet [Robinul] AM EST [facility] F or Human Development) tizanidine 2 MG Oral 12/15/2013 12:00:00 CureMD ([place] Capsule [Zanaflex] [facility] For Human Development) Baclofen 20 MG Oral Tablet 12/15/2013 12:00:00 CureMD ([facility] For [facility] Development) Glycopyrrolate 1 MG Oral 12/15/2013 12:00:00 CureMD ([place] Tablet [Robinul] [facility] F or Human Development) tizanidine 2 MG Oral 12/15/2013 12:00:00 CureMD ([place] Capsule [Zanaflex] [facility] For Human Development) Valproic Acid 50 MG/ML 02/08/2013 12:00:00 CureMD ([place] Oral Solution [facility] For Human Development) ammonium lactate 120 MG/ML 05/15/2012 12:00:00 CureMD ([place] Topical Cream [Lac-Hydrin] AM [facility]) ammonium lactate 120 MG/ML 05/15/2012 12:00:00 CureMD ([place] Topical Cream [Lac-Hydrin] AM EDT [facility]) ammonium lactate 120 MG/ML 05/15/2012 12:00:00 CureMD ([place] Topical Cream [Lac-Hydrin] AM EDT I [facility])
[2019-11-08 23:55] VITALS: BP 116/85; PULSE 82; TEMP 97.9
== END 2019-11-08 23:55 ==
LOC: JER 18:57
DX: K94.23 Gastrostomy malfunction (principal)
CPT/HCPCS: 74018-TC-FY; 99284-25

== ENCOUNTER 2020-10-03 15:24 | Emergency (ER) | payer OTHER ==
[2020-10-03 15:33] VITALS: BP 116/78; PULSE 84; TEMP 98; BMI 29.7
[2020-10-03 19:16] LABS: BASO % 0.4 % (0-2.0); EOS % 1.3 % (0-4.5); HEMATOCRIT 39.5 % (35.4-49); HEMOGLOBIN 13.6 GM/dL (11.7-16.9); MCH 32.1 pg (25.7-33.7); MCHC 34.3 g/dl (32.0-35.9); MEAN CELL VOLUME 93.7 fl (80-96); MEAN PLT VOLUME 7.8 fl (7.5-11.1); MONO % 5.1 % (3.8-10.2); NEUT % 58.2 % (42.8-82.8); PLATELET COUNT 220 10^3/uL (134-434); RBC 4.22 M/mm3 (4.00-5.60); RDW 12.7 % (11.9-15.9); WHITE BLOOD COUNT 6.4 K/mm3 (4.0-10.0)
[2020-10-03 19:33] LABS: ALBUMIN 3.6 g/dl (3.4-5.0); BLOOD UREA NITROGEN 13.9 mg/dL (7-18)
[2020-10-03 19:37] LABS: CREATININE 0.5 mg/dL (0.55-1.3)
[2020-10-03 19:38] LABS: BILIRUBIN,TOTAL 0.5 mg/dL (0.2-1); TOT PROT 7.8 g/dl (6.4-8.2)
== END 2020-10-03 20:08 | disposition home or self-care (01) ==
LOC: JER 15:24
PROC: 0D20XUZ Change Feeding Device in Upper Intestinal Tract, External Approach (ICD-10-PCS; principal; 2020-10-03)
DX: K94.23 Gastrostomy malfunction (principal)
CPT/HCPCS: 36415; 74018-TC-FY; 80053; 84439; 84443; 85025; 99284-25

== ENCOUNTER 2020-11-06 21:16 | Emergency (ER) | payer OTHER ==
[2020-11-06 21:30] VITALS: BP 125/83; PULSE 85; BMI 28.8
== END 2020-11-06 23:11 | disposition home or self-care (01) ==
LOC: JER 21:16
DX: K94.23 Gastrostomy malfunction (principal)
CPT/HCPCS: 99282-25

== ENCOUNTER 2021-04-05 16:44 | Emergency (ER) | payer OTHER ==
[2021-04-05 16:52] VITALS: BP 122/76; PULSE 68; TEMP 97.8; BMI 28.8
[2021-04-05] MEDS ORDERED: IOHEXOL 180 MG/1 ML ML IJ ONE (17:43)
== END 2021-04-05 18:15 | disposition home or self-care (01) ==
LOC: JER 16:44
DX: K94.23 Gastrostomy malfunction (principal)
CPT/HCPCS: 74018-TC-FY; 99283-25

== ENCOUNTER 2021-08-18 21:50 | Emergency (ER) | payer OTHER ==
[2021-08-18 22:07] VITALS: TEMP 98.8; BMI 26.2
[2021-08-19 00:49] LABS: HEMATOCRIT 42.1 % (35.4-49); HEMOGLOBIN 14.4 GM/dL (11.7-16.9); MCH 32.6 pg (25.7-33.7); MCHC 34.2 g/dl (32.0-35.9); MEAN CELL VOLUME 95.4 fl (80-96); MEAN PLT VOLUME 8.8 fl (7.5-11.1); PLATELET COUNT 181 10^3/uL (134-434); RBC 4.41 M/mm3 (4.00-5.60); RDW 12.7 % (11.9-15.9); WHITE BLOOD COUNT 4.2 K/mm3 (4.0-10.0)
[2021-08-19 01:02] LABS: INR 0.99 (0.83-1.09); PROTHROMBIN TIME (PATIENT) 11.4 SEC (9.7-13.0)
[2021-08-19 01:05] LABS: ACTIVATED PTT 33.8 SECONDS (25.2-36.5)
[2021-08-19 01:17] LABS: ALBUMIN 3.8 g/dl (3.4-5.0); BLOOD UREA NITROGEN 16.6 mg/dL (7-18); CALCIUM 9.1 mg/dL (8.5-10.1)
[2021-08-19 01:20] LABS: CREATININE 0.6 mg/dL (0.55-1.3)
[2021-08-19 01:21] LABS: BILIRUBIN,TOTAL 0.3 mg/dL (0.2-1)
[2021-08-19 01:22] LABS: TOT PROT 8.1 g/dl (6.4-8.2)
[2021-08-19] MEDS ORDERED: MIDAZOLAM HCL 2 MG/2 ML SINGLE DOSE VIAL IVPUSH ONE (04:57)
[2021-08-19] MEDS ORDERED: MIDAZOLAM HCL 2 MG/2 ML SINGLE DOSE VIAL ONE (04:58)
[2021-08-19 06:41] LABS: PH,URINE 7.5 (5.0-8.0); URINE APPEARANCE CLOUDY; URINE BILIRUBIN NEGATIVE (NEGATIVE); URINE COLOR YELLOW; URINE GLUCOSE (UA) NEGATIVE (NEGATIVE); URINE KETONE NEGATIVE (NEGATIVE); URINE LEUK ESTERASE NEGATIVE (NEGATIVE); URINE NITRITE NEGATIVE (NEGATIVE); URINE PROTEIN NEGATIVE (NEGATIVE)
[2021-08-19 07:17] LABS: ANISOCYTOSIS 0; MACROCYTOSIS 0
[2021-08-19 07:46] VITALS: BP 121/90; PULSE 78
== END 2021-08-19 07:46 | disposition home or self-care (01) ==
LOC: JER 21:50
DX: K59.81 Ogilvie syndrome (principal)
CPT/HCPCS: 0241U-QW; 36415; 71045-TC-FY; 74176-TC; 80053; 81003; 83690; 85025; 85610; 85730; 87086; 87186; 99285-25

== ENCOUNTER 2022-01-13 23:00 | Observation (INO) | payer OTHER ==
[2022-01-13 23:06] VITALS: BP 123/84; PULSE 88; RESP 18; BMI 25.2
[2022-01-14 03:11] LABS: INR 0.99 (0.83-1.09); PROTHROMBIN TIME (PATIENT) 11.4 SEC (9.7-13.0)
[2022-01-14 03:14] LABS: ACTIVATED PTT 31.8 SECONDS (25.2-36.5)
[2022-01-14 03:25] LABS: CALCIUM 9.3 mg/dL (8.5-10.1)
[2022-01-14 03:26] LABS: ALBUMIN 3.6 g/dl (3.4-5.0); BLOOD UREA NITROGEN 14.2 mg/dL (7-18)
[2022-01-14 03:29] LABS: CREATININE 0.6 mg/dL (0.55-1.3)
[2022-01-14 03:31] LABS: BILIRUBIN,TOTAL 0.4 mg/dL (0.2-1); TOT PROT 7.9 g/dl (6.4-8.2)
[2022-01-14 04:27] LABS: BASO % 0.5 % (0-2.0); EOS % 1.2 % (0-4.5); HEMATOCRIT 41.1 % (35.4-49); HEMOGLOBIN 13.7 GM/dL (11.7-16.9); LYMPH % 52.9 % (8-40); MCH 31.9 pg (25.7-33.7); MCHC 33.3 g/dl (32.0-35.9); MEAN CELL VOLUME 95.7 fl (80-96); MEAN PLT VOLUME 9.3 fl (7.5-11.1); MONO % 5.2 % (3.8-10.2); NEUT % 40.2 % (42.8-82.8); PLATELET COUNT 194 10^3/uL (134-434); RBC 4.29 M/mm3 (4.00-5.60); RDW 12.6 % (11.9-15.9); WHITE BLOOD COUNT 6.4 K/mm3 (4.0-10.0)
[2022-01-14] MEDS ORDERED: VALPROATE SODIUM 500 MG/5 ML VIAL IVPB SCH (22:00)
== END 2022-01-14 12:33 ==
LOC: JER 23:00 → JERBED 01-14 03:09
PROVIDERS: ADMIT Family Medicine; ATTEND Internal Medicine
PROC: 0DP63UZ Removal of Feeding Device from Stomach, Percutaneous Approach (ICD-10-PCS; principal; 2022-01-14)
PROC: 0DH63UZ Insertion of Feeding Device into Stomach, Percutaneous Approach (ICD-10-PCS; 2022-01-14)
DX: K94.23 Gastrostomy malfunction (principal); G80.9 Cerebral palsy, unspecified; G82.50 Quadriplegia, unspecified; G40.909 Epilepsy, unspecified, not intractable, without status epilepticus; E03.9 Hypothyroidism, unspecified; K21.9 Gastro-esophageal reflux disease without esophagitis
CPT/HCPCS: 36415; 49440; 80053; 85025; 85610; 85730; 86850; 86900; 86901; 99285-25; C1769; C1887; C9803-CS; G0378; U0003; U0005

== ENCOUNTER 2022-03-22 07:06 | Emergency (ER) | payer OTHER ==
[2022-03-22 07:38] VITALS: BP 115/66; PULSE 70; RESP 19; TEMP 98.9; BMI 29.5
== END 2022-03-22 10:49 ==
LOC: JER 07:06
PROC: 0D20XUZ Change Feeding Device in Upper Intestinal Tract, External Approach (ICD-10-PCS; principal; 2022-03-22)
DX: K94.23 Gastrostomy malfunction (principal)
CPT/HCPCS: 74018-TC-FY; 99283-25

== ENCOUNTER 2023-06-21 15:53 | Emergency (ER) | payer OTHER ==
[2023-06-21 16:03] VITALS: BP 133/85; PULSE 90; RESP 18; TEMP 98.2; BMI 32.5
== END 2023-06-21 18:01 | disposition home or self-care (01) ==
LOC: JER 15:53
PROC: 0DH60UZ Insertion of Feeding Device into Stomach, Open Approach (ICD-10-PCS; principal; 2023-06-21)
DX: K94.23 Gastrostomy malfunction (principal)
CPT/HCPCS: 74018-TC-FY; 99284-25

== ENCOUNTER 2023-06-28 19:35 | Emergency (ER) | payer OTHER ==
[2023-06-28 19:56] VITALS: BP 124/77; TEMP 98.8; BMI 26.0
[2023-06-28] MEDS ORDERED: ONDANSETRON 4 MG/2 ML VIAL ONE (20:45)
[2023-06-28] MEDS ORDERED: FAMOTIDINE 20 MG/50 ML IVPB 20 MG/50 ML MG IVPB ONE (20:46)
[2023-06-28 20:51] LABS: BASO % 0.3 % (0-2.0); EOS % 2.2 % (0-4.5); HEMATOCRIT 40.7 % (35.4-49); LYMPH % 25.9 % (8-40); MCH 32.8 pg (25.7-33.7); MCHC 34.4 g/dl (32.0-35.9); MEAN CELL VOLUME 95.5 fl (80-96); MEAN PLT VOLUME 8.5 fl (7.5-11.1); MONO % 7.7 % (3.8-10.2); NEUT % 63.9 % (42.8-82.8); PLATELET COUNT 157 10^3/uL (134-434); RBC 4.26 M/mm3 (4.00-5.60); RDW 12.9 % (11.9-15.9); WHITE BLOOD COUNT 5.5 K/mm3 (4.0-10.0)
[2023-06-28] MEDS: ONDANSETRON 4 MG/2 ML VIAL IVPUSH ONE (21:00)
[2023-06-28] MEDS: FAMOTIDINE 20 MG/50 ML IVPB 20 MG/50 ML MG IVPB ONE (21:00)
[2023-06-28 21:08] LABS: POTASSIUM 4.1 mmol/L (3.5-5.1)
[2023-06-28 21:10] LABS: ALBUMIN 3.4 g/dl (3.4-5.0); CALCIUM 8.9 mg/dL (8.5-10.1)
[2023-06-28 21:11] LABS: BLOOD UREA NITROGEN 11.1 mg/dL (7-18)
[2023-06-28 21:13] LABS: CREATININE 0.5 mg/dL (0.55-1.3)
[2023-06-28 21:15] LABS: BILIRUBIN,TOTAL 0.3 mg/dL (0.2-1); TOT PROT 7.4 g/dl (6.4-8.2)
[2023-06-28] MEDS: SODIUM CHLORIDE 0.9% 500 ML INFUS.BAG IV ONE (21:15)
[2023-06-28] MEDS ORDERED: carBAMazepine 200 MG TABLET ONE (21:57)
[2023-06-28] MEDS: carBAMazepine 100 MG TAB.CHEW PO ONE (22:57)
[2023-06-28] MEDS: VALPROATE SODIUM 250 MG/5 ML UNIT DOSE CUP GT ONE (22:58)
[2023-06-28] MEDS: VALPROATE SODIUM 250 MG/5 ML UNIT DOSE CUP PO ONE (22:58)
[2023-06-28 23:09] VITALS: PULSE 94; RESP 18
== END 2023-06-28 23:09 | disposition home or self-care (01) ==
LOC: JER 19:35
PROC: 3E033GC Introduction of Other Therapeutic Substance into Peripheral Vein, Percutaneous Approach (ICD-10-PCS; principal; 2023-06-28)
PROC: 3E033GC Introduction of Other Therapeutic Substance into Peripheral Vein, Percutaneous Approach (ICD-10-PCS; 2023-06-28)
DX: R11.11 Vomiting without nausea (principal); R19.7 Diarrhea, unspecified; Z20.822 Contact with and (suspected) exposure to COVID-19
CPT/HCPCS: 0241U-QW; 36415; 71045-TC-FY; 80053; 83690; 83735; 84484; 85025; 93005; 93010; 99285-25

== ENCOUNTER 2024-05-29 10:07 | Inpatient (IN) | payer OTHER ==
[2024-05-29 11:10] LABS: HEMATOCRIT 42.6 % (40.1-51.0); HEMOGLOBIN 14.2 g/dL (13.7-17.5); MCHC 33.3 g/dl (32.3-36.5); MEAN CELL VOLUME 95.1 fl (79.0-92.2); PLATELET COUNT 216 x10^3/uL (163-337); RDW 11.8 % (12.1-15.9)
[2024-05-29 11:17] LABS: INR 1.02 (0.83-1.09); PROTHROMBIN TIME (PATIENT) 11.2 SEC (9.7-13.0)
[2024-05-29 11:20] LABS: ACTIVATED PTT 29.3 SECONDS (25.2-36.5)
[2024-05-29 11:35] LABS: CHLORIDE 104 mmol/L (98-107); SODIUM 136 mmol/L (136-145)
[2024-05-29 11:37] LABS: CALCIUM 9.7 mg/dL (8.5-10.1)
[2024-05-29 11:38] LABS: ALBUMIN 3.4 g/dl (3.4-5.0); BLOOD UREA NITROGEN 8.4 mg/dL (7-18); CO2 26 mmol/L (21-32); GLUCOSE,RANDOM 95 mg/dL (74-106)
[2024-05-29 11:41] LABS: CREATININE 0.6 mg/dL (0.55-1.3); SGOT/AST 63 U/L (15-37); SGPT/ALT 25 U/L (13-61)
[2024-05-29 11:42] LABS: BILIRUBIN,TOTAL 0.3 mg/dL (0.2-1)
[2024-05-29 11:43] LABS: TOT PROT 8.1 g/dl (6.4-8.2)
[2024-05-29 11:44] LABS: ALK PHOS 88 U/L (45-117); ANION GAP 6 mmol/L (4-13); POTASSIUM 6.6 mmol/L (3.5-5.1)
[2024-05-29 13:29] LABS: POTASSIUM 4.2 mmol/L (3.5-5.1)
[2024-05-29 13:30] LABS: CALCIUM 9.7 mg/dL (8.5-10.1)
[2024-05-29 13:31] LABS: BLOOD UREA NITROGEN 6.9 mg/dL (7-18)
[2024-05-29 13:34] LABS: CREATININE 0.5 mg/dL (0.55-1.3)
[2024-05-29] MEDS: MINERAL OIL ENEMA 133 ML ENEMA RC ONE (16:58)
[2024-05-29] MEDS ORDERED: morphine SULFATE 4 MG/ML VIAL IVPUSH PRN (19:50)
[2024-05-29] MEDS ORDERED: ONDANSETRON 4 MG/2 ML VIAL IVPUSH PRN (19:50)
[2024-05-29] MEDS ORDERED: BISACODYL 10 MG SUPP.RECT PR PRN (20:07)
[2024-05-29] MEDS: DEXTROSE 5%-0.45% SALINE 1,000 ML IV SCH (21:38)
[2024-05-29] MEDS: VALPROATE SODIUM 250 MG/5 ML UNIT DOSE CUP GT SCH (22:59)
[2024-05-29] MEDS: carBAMazepine 100 MG/5 ML UNIT-DOSE CUP GT SCH (23:00)
[2024-05-29] MEDS: BACLOFEN 10 MG TABLET (FP) GT SCH (23:00)
[2024-05-29] MEDS: VALPROATE SODIUM 500 MG/5 ML VIAL IVPB SCH (23:00)
[2024-05-29] MEDS: carBAMazepine 100 MG TAB.CHEW PO SCH (23:01)
[2024-05-29] MEDS: BACLOFEN 10 MG TABLET (FP) PO SCH (23:01)
[2024-05-30] MEDS: ENOXAPARIN NA (PORCINE) 40 MG/0.4 ML DISP.SYRIN SQ SCH (09:32)
[2024-05-30] MEDS: PANTOPRAZOLE SODIUM 40 MG VIAL IVPUSH SCH (09:32)
[2024-05-30] MEDS ORDERED: PANTOPRAZOLE 40 MG TABLET PO SCH (10:00)
[2024-05-30] MEDS: ASPIRIN 300 MG SUPP.RECT RC SCH ×2 (10:21→11:45)
[2024-05-30 10:44] LABS: ABSOLUTE IMMATURE GRANULOCYTES 0.01 x10^3/uL (0.0-0.031); BASOPHILS # 0.04 x10^3/uL (0.01-0.08); EOSINOPHIL % 3.4 % (0.8-7.0); EOSINOPHILS # 0.17 x10^3/uL (0.04-0.54); HEMATOCRIT 41.2 % (40.1-51.0); HEMOGLOBIN 13.5 g/dL (13.7-17.5); MCHC 32.8 g/dl (32.3-36.5); MEAN CELL VOLUME 96.9 fl (79.0-92.2); MEAN PLT VOLUME 10.5 fl (9.4-12.4); MONOCYTE # 0.32 x10^3/uL (0.30-0.82); MONOCYTE % 6.5 % (5.3-12.2); PLATELET COUNT 201 x10^3/uL (163-337); RDW 11.9 % (12.1-15.9)
[2024-05-30 10:52] LABS: INR 1.11 (0.83-1.09); PROTHROMBIN TIME (PATIENT) 12.1 SEC (9.7-13.0)
[2024-05-30 11:04] LABS: POTASSIUM 3.8 mmol/L (3.5-5.1)
[2024-05-30 11:07] LABS: ALBUMIN 3.2 g/dl (3.4-5.0); BLOOD UREA NITROGEN 4.7 mg/dL (7-18); CALCIUM 9.1 mg/dL (8.5-10.1)
[2024-05-30 11:11] LABS: CREATININE 0.6 mg/dL (0.55-1.3)
[2024-05-30 11:12] LABS: BILIRUBIN,TOTAL 0.5 mg/dL (0.2-1)
[2024-05-30] MEDS: BISACODYL 10 MG SUPP.RECT PR ONE (15:09)
[2024-05-30 15:52] LABS: URINE APPEARANCE CLOUDY; URINE BILIRUBIN NEGATIVE (NEGATIVE); URINE COLOR YELLOW; URINE GLUCOSE (UA) NEGATIVE (NEGATIVE); URINE KETONE NEGATIVE (NEGATIVE); URINE LEUK ESTERASE NEGATIVE (NEGATIVE); URINE NITRITE NEGATIVE (NEGATIVE); URINE PROTEIN NEGATIVE (NEGATIVE); URINE UROBILINOGEN 0.2 mg/dL (0.2-1.0)
[2024-05-31 09:21] LABS: BASOPHILS # 0.02 x10^3/uL (0.01-0.08); EOSINOPHIL % 5.6 % (0.8-7.0); HEMATOCRIT 44.8 % (40.1-51.0); HEMOGLOBIN 14.5 g/dL (13.7-17.5); MCHC 32.4 g/dl (32.3-36.5); MEAN CELL VOLUME 96.1 fl (79.0-92.2); MONOCYTE # 0.32 x10^3/uL (0.30-0.82); MONOCYTE % 8.9 % (5.3-12.2); PLATELET COUNT 175 x10^3/uL (163-337); RDW 11.9 % (12.1-15.9)
[2024-05-31 09:44] LABS: POTASSIUM 3.9 mmol/L (3.5-5.1)
[2024-05-31 09:47] LABS: CALCIUM 9.1 mg/dL (8.5-10.1)
[2024-05-31 09:50] LABS: BLOOD UREA NITROGEN 4.9 mg/dL (7-18)
[2024-05-31 09:51] LABS: CREATININE 0.6 mg/dL (0.55-1.3)
[2024-05-31 22:21] VITALS: RESP 18
[2024-05-31 23:20] VITALS: BMI 23.6
[2024-06-01 14:34] VITALS: BP 140/89; PULSE 98; TEMP 97.7
== END 2024-06-01 15:53 | disposition home or self-care (01) | DRG 388 ==
LOC: JER 10:07 → JERBED 18:49 → J6S 22:28 → OBSVTOIN 05-30 11:08
PROVIDERS: ADMIT Hospitalist; ATTEND Internal Medicine
DX: K56.7 Ileus, unspecified (principal); E43 Unspecified severe protein-calorie malnutrition; R53.2 Functional quadriplegia; I10 Essential (primary) hypertension; K59.00 Constipation, unspecified; R13.10 Dysphagia, unspecified; G40.909 Epilepsy, unspecified, not intractable, without status epilepticus; E87.5 Hyperkalemia; F79 Unspecified intellectual disabilities; G80.9 Cerebral palsy, unspecified; Z68.23 Body mass index [BMI] 23.0-23.9, adult
CPT/HCPCS: 36415; 74018-TC-FY; 74177-TC; 80048; 80053; 81003; 83735; 84436; 84484; 85025; 85027; 85610; 85730; 86850; 86900; 86901; 87635; 93005; 93010; 99285-25; G0378; J0475; Q9967

== ENCOUNTER 2024-06-19 22:51 | Emergency (ER) | payer OTHER ==
[2024-06-19 23:00] VITALS: BP 142/88; PULSE 81; RESP 20; TEMP 97.8; BMI 25.0
== END 2024-06-20 05:48 | disposition home or self-care (01) ==
LOC: JER 22:51
DX: K94.23 Gastrostomy malfunction (principal)
CPT/HCPCS: 74018-TC-FY; 99283-25

== ENCOUNTER 2024-12-05 11:56 | Emergency (ER) | payer OTHER ==
[2024-12-05 12:04] VITALS: RESP 18; TEMP 98; BMI 21.4
[2024-12-05 15:42] VITALS: BP 119/81; PULSE 81
== END 2024-12-05 15:59 | disposition home or self-care (01) ==
LOC: JER 11:56
DX: K94.23 Gastrostomy malfunction (principal)
CPT/HCPCS: 74018-TC-FY; 99283-25